=== PATIENT | female | born 1965 | race Caucasian/White ===

== ENCOUNTER → 2016-06-13 | Outpatient (CLI) | payer MEDICARE, OTHER ==
[2016-06-13 13:12] LABS: ALT 37 U/L (9-52); AST 34 U/L (14-36); Alkaline Phosphatase 69 U/L (38-126); Anion Gap 11 mmol/L; Blood Urea Nitrogen 20 mg/dL (7-17); Calcium 9.4 mg/dL (8.4-10.2); Carbon Dioxide 25 mmol/L (22-30); Chloride 106 mmol/L (98-107); Cholesterol 166 mg/dL (<200); Glucose 93 mg/dL (74-99); HDL Cholesterol 58 mg/dL (40-60); Non-African American GFR(MDRD) 56 (>60 ml/min/1.73 sqM); Potassium 3.9 mmol/L (3.5-5.1); Sodium 142 mmol/L (137-145); Total Bilirubin 0.8 mg/dL (0.2-1.3); Total Protein 7.5 g/dL (6.3-8.2); Triglycerides 114 mg/dL (<150)
== END | disposition home or self-care (01) ==
LOC: LABWHC1 11:53
PROVIDERS: ATTEND Internal Medicine Endocrinology, Diabetes & Metabolism
DX: E10.65 Type 1 diabetes mellitus with hyperglycemia (principal); E03.9 Hypothyroidism, unspecified
CPT/HCPCS: 36415; 80053; 80061; 82043; 84443

== ENCOUNTER → 2016-10-01 | Outpatient (CLI) | payer MEDICARE, OTHER ==
[2016-10-01 15:51] LABS: Cholesterol 168 mg/dL (<200); HDL Cholesterol 46 mg/dL (40-60); Triglycerides 261 mg/dL (<150)
[2016-10-06 15:25] LABS: IgG Synthesis Rate 1.22 mg/day (0.00 - 3.00); Immunoglobulin G 920 mg/dL (700 - 1600)
== END | disposition home or self-care (01) ==
LOC: LABWHC1 15:07
PROVIDERS: ATTEND Physician Assistant
DX: I63.9 Cerebral infarction, unspecified (principal); R90.82 White matter disease, unspecified
CPT/HCPCS: 36415; 80061; 82040; 82042; 82784; 83916

== ENCOUNTER → 2017-12-08 | Outpatient (CLI) | payer MEDICARE, OTHER ==
--- NOTE | 2017-12-08 14:20 | MR ---
EXAMINATION TYPE: MR brain wo/w con DATE OF EXAM: 12/08/2017 COMPARISON: Prior MRI brain February 11, 2016. HISTORY: Altered mental status per order. Dizziness and shaking with possible MS per patient. TECHNIQUE: Multiplanar, multisequence images of the brain and brainstem is performed without and with IV contras t, utilizing 7 mL intravenous Gadavist . FINDINGS: Diffusion weighted images demonstrate no evidence of a recent infarct or other diffusion ab normality. There is no worrisome extra-axial fluid collection. The ventricular system and cisternal spaces are normal in size and appearance. The brain volume is age appropriate. There are some scatt ered foci of T2 hyperintensity seen throughout the white matter bilaterally. I estimate closer to 10- 15 scattered lesions in retrospect not significant change in number from prior. For reference 3 right -sided lesions are noted axial image 17 with largest measuring 5 x 4 mm axial image 17 felt stable. T here is a C shaped suspicious stable subcortical right occipital lesion axial image 19 redemonstrated . Some additional scattered subcortical lesions are present. Midline structures demonstrate normal morphology. The craniocervical junction appears within normal limits. Post contrast images demonstrate no abnormal enhancement. The dural venous sinuses appear pa tent. The visualized sinuses are clear and the globes are intact. There is a thin-walled rim-enhancin g 5 mm cyst right masseter muscle level axial image 7 of uncertain etiology or significance. No worri some new fluid signal mastoid air cells is seen. IMPRESSION: Mild to borderline moderate nonspecific white matter changes redemonstrated are likely on basis of known multiple sclerosis. No new or enhancing lesions are clearly evident. No suspicious ne w finding within brain seen to account for patient's symptoms.
== END | disposition home or self-care (01) ==
LOC: RADMRIMAIN 13:08
PROVIDERS: ATTEND Family Medicine
DX: G35 Multiple sclerosis (principal)
CPT/HCPCS: 70553; A9581

== ENCOUNTER → 2017-12-30 | Outpatient (CLI) | payer MEDICARE, OTHER ==
[2017-12-30 14:13] LABS: HCT 40.1 % (34.0-46.0); HGB 12.7 gm/dL (11.4-16.0); MCH 30.2 pg (25.0-35.0); MCHC 31.8 g/dL (31.0-37.0); MCV 94.9 fL (80.0-100.0); Mean Platelet Volume 6.2; Platelet Count 354 k/uL (150-450); RBC 4.22 m/uL (3.80-5.40); RDW 12.1 % (11.5-15.5); WBC 7.7 k/uL (3.8-10.6)
[2017-12-30 14:43] LABS: Potassium 3.8 mmol/L (3.5-5.1)
== END | disposition home or self-care (01) ==
LOC: LABPAT 13:15
PROVIDERS: ATTEND Surgery Plastic and Reconstructive Surgery
DX: Z01.818 Encounter for other preprocedural examination (principal); Z01.812 Encounter for preprocedural laboratory examination
CPT/HCPCS: 82565; 83735; 84132; 84520; 85027; 93005

== ENCOUNTER 2018-01-07 10:54 | Inpatient (IN) | payer MEDICARE, OTHER ==
[2017-12-30 09:23] VITALS: BMI 26.5
--- NOTE | 2018-01-07 07:37 | P.GSHP ---
History of Present Illness H&P Date: 01/07/18 CHIEF COMPLAINT: Paraesophageal hiatal hernia with gastroesophageal reflux disease. HISTORY OF PRESENT ILLNESS: The patient is a 52-year-old female who presents with paraesophageal hiatal hernia. She has completed an esophageal manometry including upper endoscopy workup. Now she presents for surgical intervention. PAST MEDICAL HISTORY: Please see list. PAST SURGICAL HISTORY: Please see list. MEDICATIONS: Please see list. ALLERGIES: Please see list. SOCIAL HISTORY: No illicit drug use FAMILY HISTORY: No reports of Crohn disease or ulcerative colitis. REVIEW OF ORGAN SYSTEMS: CONSTITUTIONAL: No reports of fevers or chills. GI: Denies any blood in stools or constipation. PHYSICAL EXAM: VITAL SIGNS: Stable GENERAL: Well-developed pleasant and in no acute distress. HEENT: No scleral icterus. Extraocular movements grossly intact. Moist buccal mucosa. NECK: Supple without lymphadenopathy. CHEST: Unlabored respirations. Equal bilateral excursions. CARDIOVASCULAR: Regular rate and rhythm. Distal 2+ pulses. ABDOMEN: Soft, nondistended. No peritoneal signs. MUSCULOSKELETAL: No clubbing, cyanosis, or edema. SKIN: Well-perfused. Good skin turgor. MANOMETRY: Shows no evidence of achalasia or scleroderma. ASSESSMENT: 1. Diaphragmatic paraesophageal hiatal hernia with severe gastroesophageal reflux disease. PLAN: 1. Recommend proceeding with a robotic paraesophageal hiatal hernia with possible mesh. 2. Benefits and risks of surgical intervention was discussed including possibility of open technique. 3. Inpatient hospitalization recommended of 2 nights 4. DVT prophylaxis. 5. Antibiotic prophylaxis. Past Medical History Past Medical History: CVA/TIA, Diabetes Mellitus, Eye Disorder, Fibromyalgia, GERD/Reflux, Hyperlipidemia, Hypertension, Osteoarthritis (OA), Thyroid Disorder Additional Past Medical History / Comment(s): hx Pancreatitis, TIA-slow speach and "processing things", insulin pump, hiatal hernia, constipation, "macular edema" History of Any Multi-Drug Resistant Organisms: None Reported Past Surgical History: Appendectomy, Bariatric Surgery, Hysterectomy Additional Past Surgical History / Comment(s): gastric sleeve, Carpal tunnel bilateral, right oophorectomy, mult laparoscopy, pannicuilectomy, Past Anesthesia/Blood Transfusion Reactions: Motion Sickness Smoking Status: Current some day smoker - Past Family History Father Family Medical History: Diabetes Mellitus Mother Family Medical History: No Reported History Medications and Allergies Home Medications Medication Instructions Recorded Confirmed Type Calcium/Magnesium/Zinc 1 tab PO DAILY 08/26/13 12/30/17 History [Ucvunvy-Ebruuvjdb-Rokk Tablet] DULoxetine HCL [Cymbalta] 60 mg PO BID 08/26/13 12/30/17 History Ibuprofen [Motrin] 800 mg PO TID PRN 08/26/13 12/30/17 History Insulin Aspart [NovoLOG 0 unit SQ-PUMP CONTINUOUS 08/26/13 12/30/17 History (formulary)] Simvastatin [Zocor] 20 mg PO HS 08/26/13 12/30/17 History buPROPion XL [Wellbutrin XL] 300 mg PO BID 08/26/13 12/30/17 History Cholecalciferol [Vitamin D3] 5,000 unit PO DAILY 11/30/13 12/30/17 History Hydrochlorothiazide [Hydrodiuril] 12.5 mg PO DAILY 10/05/15 12/30/17 History oxyCODONE-APAP 10-325MG [Percocet 1 tab PO QID PRN 10/05/15 12/30/17 History 10-325 mg] Iron(Dose Unknown) 1 tab PO DAILY 12/30/17 12/30/17 History Levothyroxine Sodium [Synthroid] 50 mcg PO DAILY 12/30/17 12/30/17 History Lutein 40 mg PO DAILY 12/30/17 12/30/17 History Miralax(Dose Unknown) 2 tbsp PO DAILY 12/30/17 12/30/17 History Allergies Allergy/AdvReac Type Severity Reaction Status Date / Time latex Allergy Rash/Hives Verified 12/30/17 08:59 vitamins Allergy Rash/Hives Uncoded 12/30/17 08:59
[~2018-01-07 10:54] MED LIST: DEXAMETHASONE SOD PHOSPHATE 10 MG/ML 1 ML VIAL IV ONE; ENOXAPARIN 40 MG/0.4 ML SYRINGE SQ STA; HEPARIN SODIUM,PORCINE 5,000 UNIT/ML 1 ML VIAL SQ ONE; LACTATED RINGERS 1,000 ML IV SCH; LIDOCAINE 1% 20 ML VIAL (10MG/ML) FOR IV START INTRADERMA PRN; MIDAZOLAM 2 MG/2 ML VIAL IV PRN; ONDANSETRON 4 MG/2 ML VIAL IVP ONE; PANTOPRAZOLE 40 MG/10 ML VIAL IV STA; ceFAZolin IN SWFI 2 GM/20 ML SYRINGE IVP ONE; fentaNYL (PF) 50 MCG/ML 2 ML AMP IV PRN
[2018-01-07 11:51] LABS: Glucose,Whole Blood 197 mg/dL (75-99)
[2018-01-07] MEDS ORDERED: SCOPOLAMINE 1.5MG/72HR PATCH TRANSDERM ONE (12:09)
[2018-01-07] MEDS ORDERED: PROPOFOL 10 MG/ML 20 ML VIAL IV ONE (12:57)
[2018-01-07] MEDS ORDERED: LIDOCAINE 1% INJ 10MG/ML (20 ML MDV) ONE (12:57)
[2018-01-07] MEDS ORDERED: ePHEDrine SULFATE/0.9% NACL/PF 50 MG/5 ML SYRINGE IV ONE (12:57)
[2018-01-07] MEDS ORDERED: GLYCOPYRROLATE 0.2 MG/ML 2 ML VIAL ONE (12:57)
[2018-01-07] MEDS ORDERED: MIDAZOLAM 2 MG/2 ML VIAL ONE (12:57)
[2018-01-07] MEDS ORDERED: ROCURONIUM BROMIDE 10 MG/ML 10 ML VIAL IV ONE (12:57)
[2018-01-07] MEDS ORDERED: KETOROLAC 30 MG/ML 1 ML VIAL ONE (12:57)
[2018-01-07] MEDS ORDERED: fentaNYL (PF) 50 MCG/ML 2 ML AMP ONE (12:57)
[2018-01-07] MEDS ORDERED: HYDROmorphone (PF) 1 MG/ML ONE (12:57)
[2018-01-07] MEDS ORDERED: NEOSTIGMINE 1 MG/ML 10 ML VIAL ONE (12:57)
[2018-01-07] MEDS ORDERED: BUPIVACAIN-EPI 0.25%-1:200,000 30 ML VIAL SQ ONE (13:15)
[2018-01-07] MEDS ORDERED: LACTATED RINGERS 1,000 ML IV ONE (14:07)
[2018-01-07] MEDS ORDERED: NALOXONE 0.4 MG/ML 1 ML VIAL IV PRN (15:08)
[2018-01-07] MEDS ORDERED: HYDROmorphone 1 MG/ML 1 ML SYRINGE IVP ONE ×2 (15:15→15:29)
--- NOTE | 2018-01-07 15:27 | P.OP ---
Date of Procedure: 01/07/18 Description of Procedure: DESCRIPTION OF PROCEDURE(S): SURGEON: ROB MELO MD PREOPERATIVE DIAGNOSES: 1. Gastroesophageal reflux disease. 2. Paraesophageal hiatal hernia, midline. 3. Diabetes type 2, insulin-dependent, poorly controlled 4. Hypothyroidism 5. Epigastric abdominal pain. 6. History of sleeve gastrectomy. 7. Depressive disorder 8. Fibromyalgia 9. Hyperlipidemia 10. Chronic constipation POSTOPERATIVE DIAGNOSES: 1. Gastroesophageal reflux disease. 2. Paraesophageal hiatal hernia, midline. 3. Diabetes type 2, insulin-dependent, poorly controlled 4. Hypothyroidism 5. Epigastric abdominal pain. 6. History of sleeve gastrectomy. 7. Depressive disorder 8. Fibromyalgia 9. Hyperlipidemia 10. Chronic constipation 11. Complication of sleeve gastrectomy with moderate scarring causing intermittent mechanical obstruction OPERATION: 1. Robotic-assisted da Jasmine Xi laparoscopic reduction and repair of incarcerated paraesophageal hiatal hernia, 3 x 4 cm, with [place] Biopatch A 8 x 8 cm. 2. Robotic-assisted da Jasmine Xi laparoscopic lysis of adhesions over 30 minutes 3. Intraoperative esophagogastroduodenoscopy ANESTHESIA: General with local anesthetic. ESTIMATED BLOOD LOSS: 5 mL Pathology: None COMPLICATIONS: None. FINDINGS: 1. Severe adhesions along the proximal two thirds of the stomach omentum to serosa causing distortion of sleeve gastrectomy and mechanical obstruction 2. Moderate redundant splenic flexure by taking sleeve gastrectomy 3. Retained gastric cardia from previously gastrectomy 4. 4 cm paraesophageal incarcerated diaphragmatic hiatal hernia 5. [place] Biopatch A onlay mesh placed. INDICATIONS: The patient is a 52-year-old female who presents with epigastric abdominal pain, history of sleeve gastrectomy and gastroesophageal reflux with a symptomatic diaphragmatic hiatal hernia. Preoperative workup including upper endoscopy demonstrated and manometry were completed. Given the severity of her symptoms, particularly of her symptomatic diaphragmatic hiatal hernia, she had elected for surgical intervention. Benefits and risks including bleeding, infection, recurrence, dysphagia, injury to the lung, need for further surgery was described at length. Informed consent was obtained. DESCRIPTION: The patient was brought into the operating room and placed in supine position. Preoperatively he had received heparin subcutaneously for DVT prophylaxis. After general induction, the abdomen was prepped and draped in standard sterile fashion. The patient had previously voided prior to coming to the operating room. [place] draping was placed along the abdomen. A timeout protocol was confirmed with the surgical team, for which the patient's name, procedure to be performed including DVT prophylaxis with bilateral SCDs, and preoperative antibiotics were also confirmed. A robotic da Jasmine Xi system was prepped and primed. At 12 cm from the xiphoid to just below the umbilicus, proposed port sites were marked with indelible marker along the left axillary line, left mid-clavicular line with each ports were marked 10 cm from each other. A 5 mm 0 degrees laparoscopic trocar entry was performed along the left upper quadrant. The abdomen was insufflated to 15 mmHg pressure she tolerated well. Diagnostic laparoscopy demonstrated no injury to bowel, viscera, or mesentery. The liver surface was unremarkable. Moderate scarring along the sleeve gastrectomy was identified causing encroachment on the angularis incisura and a mechanical intermittent obstruction with distortion and impingement on her sleeve gastrectomy. Additionally, the splenic flexure was highly redundant abutting the sleeve gastrectomy along the diaphragm. Next, one 8 mm robotic port was placed along the right upper abdomen. An 8-mm port was were placed along the left lateral abdominal wall. The camera 8-mm port was maintained along the epigastrium via the hernia defect. Another 12 mm port was placed along the left upper abdominal wall after exchanging the 5 mm port. Please note that the ports were placed at least 20 cm away from the target anatomy. Care was taken to check that each robotic arm were safely away from collision with the bed or the patient. At the epigastrium, a median sized [place] liver retractor was placed under direct visualization with the Iron First Responder placed under the right shoulder of the patient. The additional third robotic arm was placed along the left aspect of the patient. The patient was repositioned in reverse Trendelenburg position at 14-degrees after lowering the bed. The robot was docked above the left side of the patient. Using a grasper for arm 3, a grasper for arm 1, including vessel sealer for arm 2, the robotic system was docked and primed as described. Instruments were interchanged by the medical practice assistant. I had sat at the console. Dense scarring was identified of the gastrohepatic ligament onto the undersurface of the liver. The vessel sealer was used to dissect adhesions free towards the hiatus. Extensive lysis of adhesions was also occurred along the anterior surface of the sleeve for the moderate scarring was identified and similarly addressed with vessel sealer. Extensive lysis of adhesions occurred for over 30 minutes. The gastrohepatic ligament was cleaved using a vessel sealer. Next, the phrenoesophageal ligament was mobilized and the distal esophagus was mobilized circumferentially. Care was taken to avoid any injury to the sleeve gastrectomy as moderate scarring was identified involving a retained gastric cardia. Intermittently, upper endoscopy was used to clearly identify the distal esophagus including the gastric cardia and proximal pole of the stomach. The left and right crura was identified. Care was taken to avoid any gastrotomy to the upper pole of the stomach. The measured defect was consistent with 4 cm axial length and 3 cm in width. After dissection, the distal esophagus at least 3 cm was brought into the abdominal cavity. Once the hiatus and crura was dissected, 2-0 VLOC suture was placed as a running suture to re-approximate the diaphragmatic hiatus posteriorly. To buttress the repair, a [place] Biopatch A was prepared along the back table and cut in a abdalla-hole fashion as to reinforce the repair as an underlay. The mesh was placed along the crural repair and tagged using 2-0 Surgidek. I went to the head of the bed to perform intraoperative esophagogastroduodenoscopy. An Olympus gastroscope was passed through posterior oropharynx, where the GE junction was found below the diaphragmatic hiatus. The stomach was entered. The previous distortion of the sleeve gastrectomy was confirmed to be straightened after lysis of adhesions. The duodenum was unremarkable. The stomach had been desufflated. No evidence of leaks were found either of the mucosal defects of the esophagus or stomach. This concluded the endoscopic portion of the case. The robot was undocked from the patient. I re-scrubbed into the case. All instruments and pneumoperitoneum were evacuated from the abdominal cavity. Incisions were reapproximated using 4-0 Monocryl in an interrupted subcuticular fashion. The 12-mm port site fascial defect was less than 8 mm in size. Liquid glue was applied to the skin. Local anesthetic was infiltrated in all wounds for postop analgesia. Multiple intra-abdominal films were obtained. At the end of the procedure, needle, sponge, and instrument count was verified correct by the surgical instruments inspector. The patient had tolerated the procedure well and was taken to the postanesthesia unit in stable condition. Intraoperative films were reviewed with the patient's family who were pleased with the level of care. Console time 66 minutes
[2018-01-07] MEDS ORDERED: MEPERIDINE 50 MG/ML SYRINGE IVP ONE (15:45)
[2018-01-07] MEDS: ALBUTEROL NEBULIZED 2.5 MG/3 ML INHALATION SCH ×2 (16:35→21:00)
[2018-01-07 17:39] LABS: Glucose,Whole Blood 182 mg/dL (75-99)
[2018-01-07] MEDS: HYDROmorphone 1 MG/ML 1 ML SYRINGE IVP PRN (18:09)
[2018-01-07] MEDS: AMPICILLIN-SULBACTAM 3 GM in SODIUM CHLORIDE 0.9% 100 ML IVPB SCH (18:09)
[2018-01-07] MEDS: ONDANSETRON 4 MG/2 ML VIAL IVP SCH (18:10)
[2018-01-07] MEDS: SIMETHICONE 40 MG/0.6 ML DROPS 2,000 MG/30 ML BOTTLE PO SCH (18:10)
[2018-01-07] MEDS: diphenhydrAMINE 50 MG/ML 1 ML VIAL IVP PRN ×2 (18:10→23:10)
[2018-01-07] MEDS: HYOSCYAMINE ORAL DROPS 1.875 MG/15 ML BOTTLE PO SCH (18:11)
[2018-01-07] MEDS: INSULIN ASPART 100 UNIT/ML 1 ML 10 ML VIAL SQ SCH ×2 (18:39→23:58)
[2018-01-07 21:36] LABS: Glucose,Whole Blood 97 mg/dL (75-99)
[2018-01-07] MEDS: HYDROcodone/APAP 15 ML SOLUTION PO PRN (21:46)
[2018-01-08] MEDS: 0.9% NACL WITH KCL 20 MEQ/L 1,000 ML IV SCH ×3 (00:01→07:13)
[2018-01-08] MEDS: HYOSCYAMINE ORAL DROPS 1.875 MG/15 ML BOTTLE PO SCH ×3 (00:02→12:24)
[2018-01-08] MEDS: SIMETHICONE 40 MG/0.6 ML DROPS 2,000 MG/30 ML BOTTLE PO SCH ×3 (00:02→12:25)
[2018-01-08] MEDS: ONDANSETRON 4 MG/2 ML VIAL IVP SCH ×3 (00:02→12:28)
[2018-01-08] MEDS: HYDROmorphone 1 MG/ML 1 ML SYRINGE IVP PRN ×4 (00:03→12:55)
[2018-01-08] MEDS: AMPICILLIN-SULBACTAM 3 GM in SODIUM CHLORIDE 0.9% 100 ML IVPB SCH (01:02)
[2018-01-08 02:08] LABS: Glucose,Whole Blood 43 mg/dL (75-99)
[2018-01-08 02:31] LABS: Glucose,Whole Blood 46 mg/dL (75-99)
[2018-01-08 02:37] LABS: Glucose,Whole Blood 93 mg/dL (75-99)
[2018-01-08 07:09] LABS: Basophils % (A) 0 %; Eosinophils # (A) 0.2 k/uL (0-0.7); Eosinophils % (A) 2 %; HCT 34.6 % (34.0-46.0); Lymphocytes # (A) 1.9 k/uL (1.0-4.8); Lymphocytes % (A) 23 %; MCH 30.5 pg (25.0-35.0); MCHC 31.9 g/dL (31.0-37.0); MCV 95.7 fL (80.0-100.0); Mean Platelet Volume 6.7; Monocytes # (A) 0.5 k/uL (0-1.0); Monocytes % (A) 5 %; Neutrophils # (A) 5.6 k/uL (1.3-7.7); Neutrophils % (A) 68 %; Platelet Count 314 k/uL (150-450); RBC 3.62 m/uL (3.80-5.40); RDW 12.1 % (11.5-15.5); WBC 8.3 k/uL (3.8-10.6)
[2018-01-08 07:28] LABS: Calcium 8.3 mg/dL (8.4-10.2); Magnesium 1.9 mg/dL (1.6-2.3); Phosphorus 3.5 mg/dL (2.5-4.5); Potassium 3.5 mmol/L (3.5-5.1)
[2018-01-08 07:52] LABS: Glucose,Whole Blood 91 mg/dL (75-99)
[2018-01-08] MEDS: diphenhydrAMINE 50 MG/ML 1 ML VIAL IVP PRN (07:52)
[2018-01-08] MEDS: ALBUTEROL NEBULIZED 2.5 MG/3 ML INHALATION SCH ×2 (07:58→11:26)
[2018-01-08] MEDS ORDERED: 0.9% NACL WITH KCL 20 MEQ/L 1,000 ML IV SCH (08:00)
[2018-01-08] MEDS: INSULIN ASPART 100 UNIT/ML 1 ML 10 ML VIAL SQ SCH (08:49)
--- NOTE | 2018-01-08 08:49 | FL ---
EXAMINATION TYPE: FL UGI DATE OF EXAM: 01/08/2018 LIMITED UGI-ESOPHAGRAM: CLINICAL HISTORY: Hiatal hernia status post Der fundoplication surgery yesterday per patient. His tory of gastric sleeve surgery 2014 for morbid obesity. TECHNIQUE: Limited UGI is performed utilizing 20 oz of Isovue. A total of 99 seconds of fluoroscopic time was utilized during procedure. 24 spot images are saved. FINDINGS: The patient swallowed contrast without difficulty or delay. There are some abnormal second adelaida and tertiary contractions of the distal esophagus with some pooling. There is mild delay in flow of contrast along the diaphragmatic hiatus into the gastric sleeve, there is no evidence of contrast extravasation to suggest leak. Surgical changes epigastric region from sleeve procedure are noted. Th ere is slightly unusual twisting course of the proximal portion of sleeve not causing significant obs truction. No persistent hiatal hernia is seen. Patient remains asymptomatic without increased symptom s of nausea or vomiting. Free air below diaphragm is presumed postsurgical seen best under right estevan diaphragm. IMPRESSION: No evidence of leak or significant obstruction status post Dre fundoplication surgery earlier yesterday. No residual hiatal hernia noted.
[2018-01-08] MEDS ORDERED: ENOXAPARIN 40 MG/0.4 ML SYRINGE SQ SCH (09:00)
[2018-01-08] MEDS ORDERED: PANTOPRAZOLE 40 MG/10 ML VIAL IV SCH (09:00)
[2018-01-08] MEDS: HYDROcodone/APAP 15 ML SOLUTION PO PRN (09:30)
--- NOTE | 2018-01-08 09:56 | P.PN ---
Subjective Progress Note Date: 01/08/18 CHIEF COMPLAINT: Paraesophageal hiatal hernia with gastroesophageal reflux disease. HISTORY OF PRESENT ILLNESS: The patient is a 52-year-old female who presents with paraesophageal hiatal hernia. She is s/p hiatal hernia repair. She denies any difficulty swallowing. She reports poor sleep due to trouble with urinating. She was able to urinate this morning. PHYSICAL EXAM: VITAL SIGNS: Stable GENERAL: Well-developed pleasant and in no acute distress. HEENT: No scleral icterus. Extraocular movements grossly intact. Moist buccal mucosa. NECK: Supple without lymphadenopathy. CHEST: Unlabored respirations. Equal bilateral excursions. CARDIOVASCULAR: Regular rate and rhythm. Distal 2+ pulses. ABDOMEN: Soft, nondistended. No peritoneal signs. MUSCULOSKELETAL: No clubbing, cyanosis, or edema. SKIN: Well-perfused. Good skin turgor. STUDIES: Esophogram reviewed. ASSESSMENT: 1. Diaphragmatic paraesophageal hiatal hernia with severe gastroesophageal reflux disease. PLAN: 1. Decadron for nausea 2. Patient eager to go home today. 3. Re-evaluate this afternoon with bariatric diet. Objective - Vital Signs Vital signs: Vital Signs Temp 98.6 F 01/08/18 00:13 Pulse 99 01/08/18 08:08 Resp 18 01/08/18 02:45 BP 95/52 01/08/18 02:45 Pulse Ox 96 01/08/18 07:58 Intake & Output 01/07/18 01/08/18 01/08/18 18:59 06:59 18:59 Intake Total 1300 Output Total 10 400 200 Balance 1290 -400 -200 Intake: IV 1300 Output: Urine 400 200 Straight 400 Estimated Blood Loss 10 Other: Voiding Method Toilet - Labs CBC & Chem 7: 01/08/18 06:49 01/08/18 06:49 Labs: Abnormal Lab Results - Last 24 Hours (Table) 01/07/18 01/07/18 01/08/18 Range/Units 11:39 17:37 02:06 RBC (3.80-5.40) m/uL Hgb (11.4-16.0) gm/dL Chloride (98-107) mmol/L BUN (7-17) mg/dL POC Glucose (mg/dL) 197 H 182 H 43 L (75-99) mg/dL Calcium (8.4-10.2) mg/dL 01/08/18 01/08/18 01/08/18 Range/Units 02:08 06:49 06:49 RBC 3.62 L (3.80-5.40) m/uL Hgb 11.0 L (11.4-16.0) gm/dL Chloride 109 H (98-107) mmol/L BUN 20 H (7-17) mg/dL POC Glucose (mg/dL) 46 L (75-99) mg/dL Calcium 8.3 L (8.4-10.2) mg/dL Assessment and Plan (1) Paraesophageal hernia with obstruction but no gangrene Current Visit: Yes Status: Acute Code(s): K44.0 - DIAPHRAGMATIC HERNIA WITH OBSTRUCTION, WITHOUT GANGRENE SNOMED Code(s): 10444538 (2) History of sleeve gastrectomy Current Visit: Yes Status: Acute Code(s): Z90.3 - ACQUIRED ABSENCE OF STOMACH [PART OF] SNOMED Code(s): 679044631 (3) Depression Current Visit: Yes Status: Acute Code(s): F32.9 - MAJOR DEPRESSIVE DISORDER , SINGLE EPISODE, UNSPECIFIED SNOMED Code(s): 35693336 (4) Fibromyalgia Current Visit: Yes Status: Acute Code(s): M79.7 - FIBROMYALGIA SNOMED Code (s): 730271134
[2018-01-08] MEDS ORDERED: DEXAMETHASONE SOD PHOSPHATE 10 MG/ML 1 ML VIAL IV ONE (10:00)
[2018-01-08] MEDS ORDERED: INSULIN PUMP BASAL RATES 1 EACH MISC MISCELLANE PRN (10:05)
[2018-01-08] MEDS ORDERED: INSULIN PUMP ACTIVE INSULIN 1 EACH MISC MISCELLANE PRN (10:05)
[2018-01-08] MEDS ORDERED: INSULIN ASPART 100 UNIT/ML 1 ML 10 ML VIAL SQ PRN (10:05)
[2018-01-08] MEDS ORDERED: INSULIN PUMP TARGET GLUCOSE 1 EACH MISC MISCELLANE PRN (10:05)
[2018-01-08] MEDS ORDERED: INSPUCOR MISCELLANE PRN (10:05)
[2018-01-08 12:04] LABS: Hemoglobin A1C 6.3 % (4.0-6.0)
[2018-01-08] MEDS ORDERED: INSULIN PUMP MEAL BOLUS 1 UNIT MISC MISCELLANE SCH (12:30)
[2018-01-08 12:34] LABS: Glucose,Whole Blood 88 mg/dL (75-99)
--- NOTE | 2018-01-08 12:37 | P.DS ---
Providers Date of admission: 01/07/18 10:54 Expected date of discharge: 01/08/18 Attending physician: Dionne Hanley Primary care physician: Siria [facility] Course: 52-year-old female presented with peraesophageal hiatal hernia with gastroesophageal reflux disease. Patient had completed any esophageal manometry including upper endoscopy workup. Now she presents for surgical intervention. On January 07 patient did undergo Robotic-assisted da Jasmine Xi laparoscopic reduction and repair of incarcerated paraesophageal hiatal hernia, 3 x 4 cm, with [place] Biopatch A 8 x 8 cm. . Robotic-assisted da Jasmine Xi laparoscopic lysis of adhesions over 30 minutes Intraoperative esophagogastroduodenoscopy The day of discharge patient had been up ambulating in the hallway stated that the nausea sensation resolved urinating no difficulty in pain medication was effective for pain control Impression discharge diagnosis Present on admission Paraesophageal hiatal hernia midline Type 2 diabetes insulin poorly controlled Gastroesophageal reflux disease Depressive disorder Chronic constipation History of sleeve gastrectomy Complications of sleeve gastrostomy with moderate scarring causing intermittent mechanical obstruction Status post January 07 Robotic-assisted da Jasmine Xi laparoscopic reduction and repair of incarcerated paraesophageal hiatal hernia, 3 x 4 cm, with [place] Biopatch A 8 x 8 cm. Robotic-assisted da Jasmine Xi laparoscopic lysis of adhesions over 30 minutes . Intraoperative esophagogastroduodenoscopy Epigastric abdominal pain Diaphragmatic paraesophageal hiatal hernia with severe gastroesophageal reflux disease. The above impression and plan of care have been discussed and directed by signing physician. Roshni Silva nurse practitioner acting as scribe for signing physician. Plan - Discharge Summary Discharge Rx Participant: No New Discharge Prescriptions: New Bisacodyl [Dulcolax] 5 mg PO DAILY PRN #10 tablet.dr PRN Reason: Constipation Ondansetron Odt [Zofran Odt] 4 mg PO Q8HR PRN #9 tab PRN Reason: Nausea Simethicone 40 mg/0.6 ml Drops [Mylicon Drops] 40 mg PO PCHS PRN #30 ml PRN Reason: Gas Continue buPROPion XL [Wellbutrin XL] 300 mg PO BID DULoxetine HCL [Cymbalta] 60 mg PO BID Insulin Aspart [NovoLOG (formulary)] 0.1 unit SQ-PUMP CONTINUOUS oxyCODONE-APAP 10-325MG [Percocet 10-325 mg] 1 tab PO QID PRN PRN Reason: Pain Hydrochlorothiazide [Hydrodiuril] 12.5 mg PO DAILY Levothyroxine Sodium [Synthroid] 50 mcg PO DAILY Polyethylene Glycol 3350 [Miralax] 17 gm PO DAILY Discontinued Simvastatin [Zocor] 20 mg PO HS Ibuprofen [Motrin] 800 mg PO TID PRN PRN Reason: Pain Calcium/Magnesium/Zinc [Eciyzng-Mudiwtjbf-Ppjs Tablet] 1 tab PO DAILY Cholecalciferol [Vitamin D3] 5,000 unit PO DAILY Lutein 40 mg PO DAILY Ferrous Sulfate [Feosol] 325 mg PO DAILY Discharge Medication List DULoxetine HCL [Cymbalta] 60 mg PO BID 08/26/13 [History] Insulin Aspart [NovoLOG (formulary)] 0.1 unit SQ-PUMP CONTINUOUS 08/26/13 [ History] buPROPion XL [Wellbutrin XL] 300 mg PO BID 08/26/13 [History] Hydrochlorothiazide [Hydrodiuril] 12.5 mg PO DAILY 10/05/15 [History] oxyCODONE-APAP 10-325MG [Percocet 10-325 mg] 1 tab PO QID PRN 10/05/15 [History] Levothyroxine Sodium [Synthroid] 50 mcg PO DAILY 12/30/17 [History] Polyethylene Glycol 3350 [Miralax] 17 gm PO DAILY 01/07/18 [History] Bisacodyl [Dulcolax] 5 mg PO DAILY PRN #10 tablet. 01/08/18 [Rx] Ondansetron Odt [Zofran Odt] 4 mg PO Q8HR PRN #9 tab 01/08/18 [Rx] Simethicone 40 mg/0.6 ml Drops [Mylicon Drops] 40 mg PO PCHS PRN #30 ml [Rx] Follow up Appointment(s)/Referral(s): Dionne Hanley MD [STAFF PHYSICIAN] - 01/11/18 Patient Instructions/Handouts: Hiatal Hernia (DC), Laparoscopic Hiatal Hernia Repair (DC) Activity/Diet/Wound Care/Special Instructions: No lifting over 4 pounds in 4 weeks. May shower. No bathtub soaks. No carbonated beverages or straws. Liquid diet only. TAKE HOME PAIN MEDICATIONS Discharge Disposition: HOME SELF-CARE
[2018-01-08 12:45] VITALS: BP 149/68; PULSE 73; RESP 15; TEMP 97.9
[2018-01-09] MEDS ORDERED: BISACODYL 5 MG TABLET.DR PO PRN (08:00)
== END 2018-01-08 13:45 | disposition home or self-care (01) | DRG 327 ==
LOC: 2ORMAIN 10:54 → 6PED 14:53
PROVIDERS: ADMIT Surgery Plastic and Reconstructive Surgery; ATTEND Surgery Plastic and Reconstructive Surgery
PROC: 0DNU4ZZ Release Omentum, Percutaneous Endoscopic Approach (ICD-10-PCS; 2018-01-07)
PROC: 8E0W4CZ Robotic Assisted Procedure of Trunk Region, Percutaneous Endoscopic Approach (ICD-10-PCS; 2018-01-07)
PROC: 0BUT4JZ Supplement Diaphragm with Synthetic Substitute, Percutaneous Endoscopic Approach (ICD-10-PCS; principal; 2018-01-07 12:30)
DX: K44.0 Diaphragmatic hernia with obstruction, without gangrene (principal); K56.50 Intestinal adhesions [bands], unspecified as to partial versus complete obstruction; K95.89 Other complications of other bariatric procedure; K21.9 Gastro-esophageal reflux disease without esophagitis; M79.7 Fibromyalgia; M19.90 Unspecified osteoarthritis, unspecified site; K59.09 Other constipation; E10.9 Type 1 diabetes mellitus without complications; F32.9 Major depressive disorder, single episode, unspecified; E78.5 Hyperlipidemia, unspecified; F17.200 Nicotine dependence, unspecified, uncomplicated; E03.9 Hypothyroidism, unspecified; Z90.49 Acquired absence of other specified parts of digestive tract; Z86.73 Personal history of transient ischemic attack (TIA), and cerebral infarction without residual deficits; Z90.710 Acquired absence of both cervix and uterus; Z90.721 Acquired absence of ovaries, unilateral; Z98.84 Bariatric surgery status; Z91.040 Latex allergy status
CPT/HCPCS: 74240; 80051; 82310; 82565; 83036; 83735; 84100; 84520; 85025; 94640

== ENCOUNTER → 2018-01-25 | Outpatient (CLI) | payer MEDICARE, OTHER ==
--- NOTE | 2018-01-25 18:31 | XR ---
EXAMINATION TYPE: XR chest 2V DATE OF EXAM: 01/25/2018 COMPARISON: 10/05/2015 HISTORY: Short of breath TECHNIQUE: Frontal and lateral views of the chest are obtained. FINDINGS: Heart and mediastinum are normal. Lungs are clear. Diaphragm is normal. Bony thorax is int act. Pulmonary vascularity is normal. IMPRESSION: Normal chest. There is improved inspiration compared to old exam.
== END | disposition home or self-care (01) ==
LOC: RADXRMAIN 17:42
PROVIDERS: ATTEND Surgery Plastic and Reconstructive Surgery
DX: R06.02 Shortness of breath (principal)
CPT/HCPCS: 71046

== ENCOUNTER → 2018-06-28 | Outpatient (CLI) | payer MEDICARE, OTHER ==
--- NOTE | 2018-06-29 13:59 | MM ---
Reason for exam: screening (asymptomatic). Last mammogram was performed 3 years and 3 months ago. History: Family history of breast cancer in maternal grandmother. Physical Findings: A clinical breast exam by your physician is recommended on an annual basis and results should be correlated with mammographic findings. MG 3D Screening Mammo W/Cad Bilateral CC and MLO view(s) were taken. Prior study comparison: March 27, 2015, mammogram. August 20, 2010, mammogram. The breast tissue is heterogeneously dense. This may lower the sensitivity of mammography. Finding #1: There is a 5 mm mass in the subareolar position of the left breast. Finding #2: There are typically benign calcifications in both breasts. ASSESSMENT: Incomplete: need additional imaging evaluation, BI-RAD 0 RECOMMENDATION: Ultrasound of the left breast. [facility] will attempt to contact patient to return for ultrasound.
== END | disposition home or self-care (01) ==
LOC: RADMAMWWP 12:53
PROVIDERS: ATTEND Family Medicine
DX: Z12.31 Encounter for screening mammogram for malignant neoplasm of breast (principal)
CPT/HCPCS: 77063; 77067

== ENCOUNTER → 2018-07-06 | Outpatient (CLI) | payer MEDICARE, OTHER ==
--- NOTE | 2018-07-06 11:38 | USB ---
Reason for exam: additional evaluation requested from abnormal screening. History: Family history of breast cancer in maternal grandmother. Physical Findings: Nurse Summary: bilateral nodularity, all soft, nodular, movable (nurse ts). US Breast Workup Limited LT Left limited breast ultrasound including focal area of concern, retroareolar and axilla demonstrates a 0.5 x 0.5 x 0.2cm oval, cystic lesion at the posterior nipple, corresponds to mammographic finding. No suspicious finding. These results were verbally communicated with the patient and result sheet given to the patient on 07/06/18. ASSESSMENT: Benign, BI-RAD 2 RECOMMENDATION: Return to routine screening mammogram schedule for both breasts.
== END ==
LOC: RADUSWWP 09:01
PROVIDERS: ATTEND Family Medicine
DX: R92.8 Other abnormal and inconclusive findings on diagnostic imaging of breast (principal)

== ENCOUNTER → 2018-08-26 | Outpatient (CLI) | payer MEDICARE, OTHER ==
[2018-08-26 14:23] LABS: HCT 39.8 % (34.0-46.0); HGB 12.8 gm/dL (11.4-16.0); MCH 30.7 pg (25.0-35.0); MCHC 32.3 g/dL (31.0-37.0); Mean Platelet Volume 6.7; Platelet Count 385 k/uL (150-450); RBC 4.19 m/uL (3.80-5.40); RDW 12.4 % (11.5-15.5); WBC 5.9 k/uL (3.8-10.6)
[2018-08-26 15:05] LABS: INR 0.9 (<1.2); Partial Thromboplastin Time 24.6 sec (22.0-30.0); Prothrombin Time 9.7 sec (9.0-12.0)
[2018-08-26 18:11] LABS: Parathyroid Hormone Intact 58.4 pg/mL (14.0-72.0)
[2018-08-26 18:43] LABS: Albumin 4.2 g/dL (3.80-4.90); Albumin/Globulin Ratio 2.33 (1.60-3.17); Anion Gap 5.2 mmol/L (4.00-12.00); Calcium 9.2 mg/dL (8.7-10.3); Carbon Dioxide 25.8 mmol/L (21.6-31.8); Globulin 1.8 g/dL (1.6-3.3); Iron Saturation 42.65 (12.00-45.00); Magnesium 1.9 mg/dL (1.5-2.4); Phosphorus 4.2 mg/dL (2.4-5.1); Potassium 4.7 mmol/L (3.5-5.5); Total Bilirubin 0.3 mg/dL (0.3-1.2)
[2018-08-26 18:51] LABS: Vitamin D 25 Hydroxy 44.4 ng/mL (30.0-100.0)
[2018-08-26 19:03] LABS: Folate, Serum 15.7 ng/mL
[2018-08-26 22:11] LABS: Hemoglobin A1C 6.2 % (4.0-6.0)
[2018-08-27 12:14] LABS: Zinc, Serum 68 ug/dL (60-130)
== END | disposition home or self-care (01) ==
LOC: LABWHC1 13:22
PROVIDERS: ATTEND Surgery Plastic and Reconstructive Surgery
DX: E21.1 Secondary hyperparathyroidism, not elsewhere classified (principal); E89.1 Postprocedural hypoinsulinemia; D50.8 Other iron deficiency anemias; K90.89 Other intestinal malabsorption; E44.0 Moderate protein-calorie malnutrition; N19 Unspecified kidney failure; K74.1 Hepatic sclerosis; K50.90 Crohn's disease, unspecified, without complications; E66.01 Morbid (severe) obesity due to excess calories
CPT/HCPCS: 36415; 80053; 80061; 82306; 82525; 82607; 82728; 82746; 83036; 83540; 83550; 83735; 83970; 84100; 84134; 84255; 84425; 84443; 84590; 84630; 85027; 85610; 85730

== ENCOUNTER 2018-10-01 13:54 | Day surgery (SDC) | payer MEDICARE, OTHER ==
--- NOTE | 2018-09-30 23:15 | P.GSHP ---
History of Present Illness H&P Date: 10/01/18 CHIEF COMPLAINT: History of intra-abdominal adhesions HISTORY OF PRESENT ILLNESS: The patient is a 53-year-old female who presents with history of intra-abdominal adhesions from multiple prior surgeries including increasing abdominal pain. She now presents for diagnostic laparoscopy including lysis of adhesions. PAST MEDICAL HISTORY: Please see list. PAST SURGICAL HISTORY: Please see list. MEDICATIONS: Please see list. ALLERGIES: Please see list. SOCIAL HISTORY: No illicit drug use FAMILY HISTORY: No reports of Crohn disease or ulcerative colitis. REVIEW OF ORGAN SYSTEMS: CONSTITUTIONAL: No reports of fevers or chills. GI: Denies any blood in stools or constipation. PHYSICAL EXAM: VITAL SIGNS: Stable GENERAL: Well-developed pleasant and in no acute distress. HEENT: No scleral icterus. Extraocular movements grossly intact. Moist buccal mucosa. NECK: Supple without lymphadenopathy. CHEST: Unlabored respirations. Equal bilateral excursions. CARDIOVASCULAR: Regular rate and rhythm. Distal 2+ pulses. ABDOMEN: Soft, diffuse abdominal tenderness. No peritonitis. MUSCULOSKELETAL: No clubbing, cyanosis, or edema. ASSESSMENT: 1. Diffuse abdominal pain. 2. History of multiple abdominal surgeries. 3. Intra-abdominal adhesions. PLAN: 1. Robotic lysis of adhesions were described in detail including risk of injury to the intestine, need for further surgery, and open technique. 2. DVT prophylaxis. 3. Antibiotic prophylaxis. Past Medical History Past Medical History: CVA/TIA, Diabetes Mellitus, Eye Disorder, Fibromyalgia, GERD/Reflux, Hyperlipidemia, Hypertension, Osteoarthritis (OA), Thyroid Disorder Additional Past Medical History / Comment(s): CURRENT: ABD PAIN AND NAUSEA. hx Pancreatitis, TIA-slow speach and "processing things", insulin pump, hiatal hernia, constipation, "macular edema" History of Any Multi-Drug Resistant Organisms: None Reported Past Surgical History: Appendectomy, Bariatric Surgery, Hysterectomy Additional Past Surgical History / Comment(s): ESTEFANY FUNDOPLASTY IN JANUARY 2018. gastric sleeve, Carpal tunnel bilateral, right oophorectomy, mult laparoscopy, pannicuilectomy, Past Anesthesia/Blood Transfusion Reactions: Motion Sickness Past Psychological History: Depression Smoking Status: Current some day smoker Past Alcohol Use History: Occasional Additional Past Alcohol Use History / Comment(s): quit smoking 03/09/17- (still occ has a cigarette), smoked for 20 yrs, Past Drug Use History: None Reported - Past Family History Father Family Medical History: Diabetes Mellitus Mother Family Medical History: No Reported History Medications and Allergies Home Medications Medication Instructions Recorded Confirmed Type DULoxetine HCL [Cymbalta] 60 mg PO BID 08/26/13 09/30/18 History INSULIN ASPART (NovoLOG) [NovoLOG 0.1 unit SQ-PUMP CONTINUOUS 08/26/13 09/30/18 History (formulary)] buPROPion XL [Wellbutrin XL] 300 mg PO BID 08/26/13 09/30/18 History Hydrochlorothiazide [Hydrodiuril] 12.5 mg PO QAM 10/05/15 09/30/18 History oxyCODONE-APAP 10-325MG [Percocet 1 tab PO QID PRN 10/05/15 09/30/18 History 10-325 mg] Levothyroxine Sodium [Synthroid] 50 mcg PO QAM 12/30/17 09/30/18 History Polyethylene Glycol 3350 [Miralax] 17 gm PO DAILY 01/07/18 09/30/18 History Aspirin [Adult Low Dose Aspirin EC] 81 mg PO DAILY 09/30/18 09/30/18 History Cider Vinegar [Apple Cider Vinegar] 1 tab PO DAILY 09/30/18 09/30/18 History Ibuprofen 200 - 400 mg PO Q6H PRN 09/30/18 09/30/18 History Allergies Allergy/AdvReac Type Severity Reaction Status Date / Time latex Allergy Rash/Hives Verified 09/30/18 08:27 vitamins Allergy Rash/Hives Uncoded 09/30/18 08:27
[~2018-10-01 13:54] MED LIST changes: -ENOXAPARIN 40 MG/0.4 ML SYRINGE SQ STA; -LACTATED RINGERS 1,000 ML IV SCH; -PANTOPRAZOLE 40 MG/10 ML VIAL IV STA; +Pre Op ABX Message 1 EACH MISC MISCELLANE ONE
[2018-10-01] MEDS: LACTATED RINGERS 1,000 ML IV SCH ×2 (14:51→23:02)
[2018-10-01 15:01] LABS: Glucose,Whole Blood 88 mg/dL (75-99)
[2018-10-01] MEDS ORDERED: LIDOCAINE 1% INJ 10MG/ML (20 ML MDV) ONE (18:15)
[2018-10-01] MEDS ORDERED: KETOROLAC 30 MG/ML 1 ML VIAL ONE (18:15)
[2018-10-01] MEDS ORDERED: HYDROmorphone (PF) 1 MG/ML ONE (18:15)
[2018-10-01] MEDS ORDERED: SUCCINYLCHOLINE CHLORIDE 100 MG/5 ML SYR IV ONE (18:15)
[2018-10-01] MEDS ORDERED: ROCURONIUM BROMIDE 10 MG/ML 10 ML VIAL IV ONE (18:15)
[2018-10-01] MEDS ORDERED: GLYCOPYRROLATE 0.2 MG/ML 2 ML VIAL ONE (18:15)
[2018-10-01] MEDS ORDERED: ONDANSETRON 4 MG/2 ML VIAL ONE (18:15)
[2018-10-01] MEDS ORDERED: PROPOFOL 10 MG/ML 20 ML VIAL IV ONE (18:15)
[2018-10-01] MEDS ORDERED: fentaNYL (PF) 50 MCG/ML 2 ML AMP ONE (18:15)
[2018-10-01] MEDS ORDERED: NEOSTIGMINE 1 MG/ML 10 ML VIAL ONE (18:15)
[2018-10-01] MEDS ORDERED: MIDAZOLAM 2 MG/2 ML VIAL ONE (18:15)
[2018-10-01] MEDS ORDERED: BUPIVACAINE-EPI 0.5%-1:200,000 10 ML VIAL SQ ONE ×2 (18:35→18:42)
[2018-10-01] MEDS ORDERED: LACTATED RINGERS 1,000 ML IV ONE (19:17)
[2018-10-01 20:29] LABS: Glucose,Whole Blood 198 mg/dL (75-99)
[2018-10-01] MEDS ORDERED: NALOXONE 0.4 MG/ML 1 ML VIAL IV PRN (20:35)
[2018-10-01] MEDS ORDERED: METOCLOPRAMIDE 5 MG/ML 2 ML VIAL IVP PRN (20:35)
[2018-10-01] MEDS ORDERED: HYDROmorphone 1 MG/ML 1 ML SYRINGE IVP ONE ×3 (20:36→20:46)
--- NOTE | 2018-10-01 20:41 | P.OP ---
Date of Procedure: 10/01/18 Description of Procedure: SURGEON: DIONNE HANLEY MD PREOPERATIVE DIAGNOSES: 1. Peritoneal adhesions 2. Generalized abdominal pain 3. History of multiple abdominal surgeries 4. Hypothyroidism 5. Epigastric abdominal pain. 6. History of sleeve gastrectomy. 7. Depressive disorder 8. Fibromyalgia 9. Hyperlipidemia 10. Chronic constipation 11. Diabetes type 2, insulin-dependent with diabetic retinopathy POSTOPERATIVE DIAGNOSES: 1. Peritoneal adhesions, severe 2. Generalized abdominal pain 3. History of multiple abdominal surgeries 4. Hypothyroidism 5. Epigastric abdominal pain. 6. History of sleeve gastrectomy. 7. Depressive disorder 8. Fibromyalgia 9. Hyperlipidemia 10. Chronic constipation 11. Diabetes type 2, insulin-dependent with diabetic retinopathy 12. Severe peritoneal adhesions greater omentum to the abdominal wall OPERATION: 1. Robotic-assisted da Jasmine Xi laparoscopic extensive lysis of adhesions over 1 hour Anesthesia: GETA, local Estimated Blood Loss (ml): 5 Pathology: none sent Condition: critical Disposition: observation Operative Findings: 1. Omental and large bowel adhesions left lateral to left lower abdominal wall consistent location of pain. 2. Highly redundant sigmoid colon with high risk for intermittent volvulus 3. Intra-loop adhesions involving jejunum 4. Sigmoid colon adherent with incarceration of the left lower abdomen INDICATIONS: The patient is a 53-year-old female who presents with left upper quadrant and lower quadrant abdominal pain. Surgical intervention with di agnostic laparoscopy, lysis of adhesions were described. Robotic assisted laparoscopic approach was described. Benefits and risks of the procedure including but not limited to bleeding, infection, injury to the biliary tree was described. Informed consent was obtained. DESCRIPTION OF PROCEDURE: Patient was brought to the operating room, placed in supine position. After general induction, the abdomen had been prepped and draped in standard sterile fashion. The robotic da Jasmine XI system was primed. After a timeout protocol was performed, the patient had been prepped and draped in standard sterile fashion. A 5 mm 0 degrees laparoscopic trocar entry was performed along the left upper quadrant. Diagnostic laparoscopy demonstrated no injury to bowel viscera or mesentery. Diffuse abdominal adhesions were identified. Next, three 8 mm robotic ports were placed along transverse line, 15-cm distal to the xiphoid process after exchanging the 5-mm port. Please note that the ports were placed at least 10 to 15 cm away from the target anatomy. Instruments including graspers, scissors and vessel sealer were interchanged by the assistant business manager. I had sat at the console. Omental adhesions along the midline and left lower abdominal wall were addressed using vessel sealer. No evidence of incisional hernia was identified. The rest of the abdomen was unremarkable for small bowel pathology. Along the left lateral abdominal wall, complete adhesions of omentum to abdominal wall was found and lysed with scissors and vessel sealer. At the left lower quadrant, sigmoid colon was adherent to left lower abdominal wall and dissected free. Internal hernia involving sigmoid colon and greater omentum at the left lower abdomen was excised for risk for bowel obstruction. Omental and large bowel adhesions left lateral to left lower abdominal wall consistent location of pain was also lysed. Highly redundant sigmoid colon with high risk for intermittent volvulus was found. Intra-loop adhesions involving jejunum mid and distal was found and also lysed. The sigmoid colon was adherent with incarceration at the left lower abdomen. The robot was re-docked from the pelvis to upper abdomen. The small bowel from the cammy limb to distal ileum was inspected. No ventral hernias identified. Adhesions along the epigastrium, left upper quarant and right upper quadrant were lysed using vessel sealer. The terminal ileum and cecum was unremarkable. Extensive lysis of adhesions over 1 hour was performed. No evidence of small bowel obstruction was found. The robot was undocked. All pneumoperitoneum instruments were evacuated from the abdominal cavity. The incisions were reapproximated using 4-0 Monocryl in an interrupted subcuticular fashion. Please note along the trocar sites, local anesthetic was placed as a field block prior to insertion of all instruments. Exofin was applied to the skin. At the end of the procedure needle, sponge, and instrument count had been verified correct by the director medical surgical. The patient was transferred to postanesthesia care unit in stable condition. Plan - Discharge Summary Discharge Rx Participant: No New Discharge Prescriptions: Continue DULoxetine HCL [Cymbalta] 60 mg PO BID INSULIN ASPART (NovoLOG) [NovoLOG (formulary)] 0.1 unit SQ-PUMP CONTINUOUS oxyCODONE-APAP 10-325MG [Percocet 10-325 mg] 1 tab PO QID PRN PRN Reason: Pain Hydrochlorothiazide [Hydrodiuril] 12.5 mg PO QAM Levothyroxine Sodium [Synthroid] 50 mcg PO QAM Polyethylene Glycol 3350 [Miralax] 17 gm PO DAILY Ibuprofen 200 - 400 mg PO Q6H PRN PRN Reason: Pain Cider Vinegar [Apple Cider Vinegar] 1 tab PO DAILY Aspirin [Adult Low Dose Aspirin EC] 81 mg PO DAILY buPROPion HCL [Wellbutrin SR] 300 mg PO BID Discharge Medication List DULoxetine HCL [Cymbalta] 60 mg PO BID 08/26/13 [History] INSULIN ASPART (NovoLOG) [NovoLOG (formulary)] 0.1 unit SQ-PUMP CONTINUOUS 08/26/13 [History] Hydrochlorothiazide [Hydrodiuril] 12.5 mg PO QAM 10/05/15 [History] oxyCODONE-APAP 10-325MG [Percocet 10-325 mg] 1 tab PO QID PRN 10/05/15 [History] Levothyroxine Sodium [Synthroid] 50 mcg PO QAM 12/30/17 [History] Polyethylene Glycol 3350 [Miralax] 17 gm PO DAILY 01/07/18 [History] Aspirin [Adult Low Dose Aspirin EC] 81 mg PO DAILY 09/30/18 [History] Cider Vinegar [Apple Cider Vinegar] 1 tab PO DAILY 09/30/18 [History] Ibuprofen 200 - 400 mg PO Q6H PRN 09/30/18 [History] buPROPion HCL [Wellbutrin SR] 300 mg PO BID 10/02/18 [History] Follow up Appointment(s)/Referral(s): Dionne Hanley MD [STAFF PHYSICIAN] - 10/05/18 (Please call to confirm time) Patient Instructions/Handouts: Lysis of Abdominal Adhesions (DC) Activity/Diet/Wound Care/Special Instructions: May shower. No bathtub soaks to October 11. No lifting over 10 pounds until October 11. Diet as tolerated. Please take home pain medications. Discharge Disposition: HOME SELF-CARE
[2018-10-01] MEDS ORDERED: INSULIN ASPART (NovoLOG) 100 UNIT/ML VIAL SQ SCH (20:45)
[2018-10-01 22:10] VITALS: BMI 27.8
[2018-10-01] MEDS: DULoxetine HCL 60 MG CAPSULE.DR PO SCH (23:04)
[2018-10-01] MEDS: KETOROLAC 30 MG/ML 1 ML VIAL IVP SCH (23:04)
[2018-10-01] MEDS ORDERED: INSPUCOR MISCELLANE PRN (23:52)
[2018-10-01] MEDS ORDERED: INSULIN ASPART (NovoLOG) 100 UNIT/ML VIAL SQ PRN (23:52)
[2018-10-01] MEDS ORDERED: INSULIN PUMP BASAL RATES 1 EACH MISC MISCELLANE PRN (23:52)
[2018-10-02] MEDS: oxyCODONE-APAP 10-325MG 1 EACH TAB PO PRN ×2 (00:21→12:45)
[2018-10-02 02:25] LABS: Glucose,Whole Blood 173 mg/dL (75-99)
[2018-10-02] MEDS: KETOROLAC 30 MG/ML 1 ML VIAL IVP SCH ×2 (04:22→10:17)
[2018-10-02] MEDS: HYDROmorphone 1 MG/ML 1 ML SYRINGE IVP PRN ×2 (05:18→09:24)
[2018-10-02] MEDS ORDERED: LEVOTHYROXINE 50 MCG TAB PO SCH (06:30)
[2018-10-02 07:25] LABS: Glucose,Whole Blood 106 mg/dL (75-99)
[2018-10-02] MEDS ORDERED: INSULIN PUMP MEAL BOLUS 1 UNIT MISC MISCELLANE SCH (07:30)
[2018-10-02] MEDS: DULoxetine HCL 60 MG CAPSULE.DR PO SCH (08:59)
[2018-10-02] MEDS ORDERED: PANTOPRAZOLE 40 MG/10 ML VIAL IV SCH (09:00)
[2018-10-02] MEDS ORDERED: HYDROCHLOROTHIAZIDE 12.5 MG CAP PO SCH (09:00)
[2018-10-02] MEDS ORDERED: POLYETHYLENE GLYCOL 3350 17 GM POWD.PACK PO SCH (09:00)
[2018-10-02 09:23] VITALS: BP 115/62; PULSE 87; RESP 16; TEMP 98
[2018-10-02] MEDS ORDERED: buPROPion SR 150 MG TABLET.ER PO SCH (10:00)
--- NOTE | 2018-10-02 12:16 | P.DS ---
Providers Date of admission: 10/01/18 Expected date of discharge: 10/02/18 Attending physician: Dionne Hanley Consults: 10/01/18 05:47 Consult Physician Routine Consulting Provider: [facility] Consult Reason/Comments: [facility] Do you want consulting provider notified?: Yes Primary care physician: Siria Brar [facility] Course: She is doing well. "I notice the improvement." She is passing flatus. She had bowel movement. "I feel much better." Agreeable with discharge with follow up in 3 days. Patient Condition at Discharge: Stable Plan - Discharge Summary Discharge Rx Participant: Yes New Discharge Prescriptions: No Action DULoxetine HCL [Cymbalta] 60 mg PO BID INSULIN ASPART (NovoLOG) [NovoLOG (formulary)] 0.1 unit SQ-PUMP CONTINUOUS oxyCODONE-APAP 10-325MG [Percocet 10-325 mg] 1 tab PO QID PRN PRN Reason: Pain Hydrochlorothiazide [Hydrodiuril] 12.5 mg PO QAM Levothyroxine Sodium [Synthroid] 50 mcg PO QAM Polyethylene Glycol 3350 [Miralax] 17 gm PO DAILY Ibuprofen 200 - 400 mg PO Q6H PRN PRN Reason: Pain Cider Vinegar [Apple Cider Vinegar] 1 tab PO DAILY Aspirin [Adult Low Dose Aspirin EC] 81 mg PO DAILY buPROPion HCL [Wellbutrin SR] 300 mg PO BID Discharge Medication List DULoxetine HCL [Cymbalta] 60 mg PO BID 08/26/13 [History] INSULIN ASPART (NovoLOG) [NovoLOG (formulary)] 0.1 unit SQ-PUMP CONTINUOUS 08/26/13 [History] Hydrochlorothiazide [Hydrodiuril] 12.5 mg PO QAM 10/05/15 [History] oxyCODONE-APAP 10-325MG [Percocet 10-325 mg] 1 tab PO QID PRN 10/05/15 [History] Levothyroxine Sodium [Synthroid] 50 mcg PO QAM 12/30/17 [History] Polyethylene Glycol 3350 [Miralax] 17 gm PO DAILY 01/07/18 [History] Aspirin [Adult Low Dose Aspirin EC] 81 mg PO DAILY 09/30/18 [History] Cider Vinegar [Apple Cider Vinegar] 1 tab PO DAILY 09/30/18 [History] Ibuprofen 200 - 400 mg PO Q6H PRN 09/30/18 [History] buPROPion HCL [Wellbutrin SR] 300 mg PO BID 10/02/18 [History]
[2018-10-05 07:23] LABS: Glucose,Whole Blood 99 mg/dL (75-99)
== END 2018-10-02 13:45 | disposition home or self-care (01) ==
LOC: OR 13:54 → 4SSUR 20:26 → UNDOADMOB 10-02 10:21 → 4SSUR 10-02 10:21 → OR 10-02 10:23
PROVIDERS: ATTEND Surgery Plastic and Reconstructive Surgery
DX: K66.0 Peritoneal adhesions (postprocedural) (postinfection) (principal); Q43.8 Other specified congenital malformations of intestine; Z98.890 Other specified postprocedural states; R10.13 Epigastric pain; K59.09 Other constipation; I69.328 Other speech and language deficits following cerebral infarction; I69.313 Psychomotor deficit following cerebral infarction; I10 Essential (primary) hypertension; E78.5 Hyperlipidemia, unspecified; E11.311 Type 2 diabetes mellitus with unspecified diabetic retinopathy with macular edema; Z79.4 Long term (current) use of insulin; Z96.41 Presence of insulin pump (external) (internal); M79.7 Fibromyalgia; F17.200 Nicotine dependence, unspecified, uncomplicated; K21.9 Gastro-esophageal reflux disease without esophagitis; E03.9 Hypothyroidism, unspecified; Z98.84 Bariatric surgery status; Z90.710 Acquired absence of both cervix and uterus; F32.9 Major depressive disorder, single episode, unspecified; Z79.82 Long term (current) use of aspirin; Z79.890 Hormone replacement therapy; Z79.899 Other long term (current) drug therapy; Z88.8 Allergy status to other drugs, medicaments and biological substances; Z91.040 Latex allergy status
CPT/HCPCS: 44180; 86900; 86901; 86850; J2250; J1644; J1100; J2710; J2765; S0106; J2405; J2001; J3010; J1885 ×2; J1170 ×2; J0330; J2704; C9113; J0690

== ENCOUNTER 2019-01-22 02:32 | Emergency (ER) | payer MEDICARE, OTHER ==
[2019-01-22] MEDS ORDERED: SODIUM CHLORIDE 0.9% 1,000 ML IV STA (03:20)
[2019-01-22 03:36] LABS: Basophils # (A) 0.1 k/uL (0-0.2); Basophils % (A) 1 %; Eosinophils # (A) 0.4 k/uL (0-0.7); Eosinophils % (A) 3 %; HCT 38.6 % (34.0-46.0); HGB 12.3 gm/dL (11.4-16.0); Lymphocytes # (A) 2.9 k/uL (1.0-4.8); Lymphocytes % (A) 25 %; MCH 30.3 pg (25.0-35.0); MCHC 31.9 g/dL (31.0-37.0); Mean Platelet Volume 6.1; Monocytes # (A) 0.7 k/uL (0-1.0); Monocytes % (A) 6 %; Neutrophils # (A) 7.6 k/uL (1.3-7.7); Neutrophils % (A) 64 %; Platelet Count 388 k/uL (150-450); RBC 4.06 m/uL (3.80-5.40); RDW 12.3 % (11.5-15.5); WBC 11.9 k/uL (3.8-10.6)
[2019-01-22 03:36] LABS: Appearance,Urine Clear (Clear); Bilirubin,Urine Negative (Negative); Blood,Urine Negative (Negative); Color,Urine Yellow; Glucose,Urine (UA) Negative (Negative); Ketones,Urine Negative (Negative); Leukocyte Esterase,Urine Negative (Negative); Nitrite,Urine Negative (Negative); Protein,Urine Negative (Negative); Urobilinogen,Urine <2.0 mg/dL (<2.0)
[2019-01-22 03:54] LABS: Albumin 3.8 g/dL (3.5-5.0); Calcium 8.9 mg/dL (8.4-10.2); Total Bilirubin 0.3 mg/dL (0.2-1.3); Total Protein 6.5 g/dL (6.3-8.2)
--- NOTE | 2019-01-22 04:00 | XR ---
EXAM: XR Abdomen, 2 Views CLINICAL HISTORY: Abdominal pain. TECHNIQUE: Frontal view of the abdomen/pelvis with upright view of the abdomen. COMPARISON: 11/30/2013. FINDINGS: Intraperitoneal space: No free air. Gastrointestinal tract: Nonspecific bowel gas pattern. No dilation. Organs: A 2.1 x 1.8 cm ovoid calcified structure is noted within the left hemipelvis, similar to that noted on the previous study, possibly representing a calcified fibroid. No renal calculi are detected. Bones/joints: Unremarkable. Vasculature: Pelvic phlebolith are noted. Other findings: Mild to moderate quantity of stool is noted. IMPRESSION: Nonspecific bowel gas pattern. No free air.
[2019-01-22 04:30] VITALS: TEMP 97.7
--- NOTE | 2019-01-22 04:51 | ED ---
Abdominal Pain HPI - General Source: EMS Mode of arrival: EMS Limitations: no limitations <Tash Altman - Last Filed: 01/22/19 05:04> <Nighat Santos - Last Filed: 01/22/19 06:42> - General Chief Complaint: Abdominal Pain Stated Complaint: Abdominal Pain Time Seen by Provider: 01/22/19 02:38 - History of Present Illness Initial Comments: 53-year-old female patient presents to the emergency department today for evaluation of abdominal pain. Patient states she has chronic abdominal pain due to multiple adhesions in her abdomen. States that 5 minutes prior to calling EMS she developed increasing pain to the abdomen. States that she does feel better after receiving Toradol from EMS personnel. She denies any nausea or vomiting. Denies any constipation or diarrhea. Denies fever or chills. Patie nt states she has had multiple abdominal surgeries in the past with Dr. Castillo. She denies any chest pain or shortness of breath. States she has been having some dizziness over the last 6 months. Denies any numbness, tingling, or weakness to the extremities. Patient denies any recent rash, back pain, numbness, tingling, dizziness, weakness, hematuria, dysuria, urinary urgency, urinary frequency, headache, visual changes, or any other complaints. (Tash Altman) - Related Data Home Medications Medication Instructions Recorded Confirmed DULoxetine HCL [Cymbalta] 60 mg PO BID 08/26/13 10/01/18 INSULIN ASPART (NovoLOG) [NovoLOG 0.1 unit SQ-PUMP CONTINUOUS 08/26/13 10/01/18 (formulary)] Hydrochlorothiazide [Hydrodiuril] 12.5 mg PO QAM 10/05/15 10/01/18 oxyCODONE-APAP 10-325MG [Percocet 1 tab PO QID PRN 10/05/15 10/01/18 10-325 mg] Levothyroxine Sodium [Synthroid] 50 mcg PO QAM 12/30/17 10/01/18 Polyethylene Glycol 3350 [Miralax] 17 gm PO DAILY 01/07/18 10/01/18 Aspirin [Adult Low Dose Aspirin EC] 81 mg PO DAILY 09/30/18 10/01/18 Cider Vinegar [Apple Cider Vinegar] 1 tab PO DAILY 09/30/18 10/01/18 Ibuprofen 200 - 400 mg PO Q6H PRN 09/30/18 10/01/18 buPROPion HCL [Wellbutrin SR] 300 mg PO BID 10/02/18 10/02/18 Allergies Allergy/AdvReac Type Severity Reaction Status Date / Time latex Allergy Rash/Hives Verified 01/22/19 02:41 vitamins Allergy Rash/Hives Uncoded 01/22/19 02:41 Review of Systems ROS Other: All systems not noted in ROS Statement are negative. <Tash Altman - Last Filed: 01/22/19 05:04> ROS Other: All systems not noted in ROS Statement are negative. <Nighat Santos - Last Filed: 01/22/19 06:42> ROS Statement: Those systems with pertinent positive or pertinent negative responses have been documented in the HPI. Past Medical History Past Medical History: CVA/TIA, Diabetes Mellitus, Eye Disorder, Fibromyalgia, GERD/Reflux, Hyperlipidemia, Hypertension, Thyroid Disorder Additional Past Medical History / Comment(s): CURRENT: ABD PAIN AND NAUSEA. hx Pancreatitis, TIA-slow speach and "processing things", insulin pump, hiatal hernia, constipation, "macular edema". Vertigo , DM tyle 1,. Chronic Back Pain-bulging discs,. Uses walker/cane/furniture to safely ambulate. Osteopenia History of Any Multi-Drug Resistant Organisms: None Reported Past Surgical History: Appendectomy, Bariatric Surgery, Hysterectomy Additional Past Surgical History / Comment(s): ESTEFANY FUNDOPLASTY IN JANUARY 2018. gastric sleeve, Carpal tunnel bilateral, right oophorectomy, mult laparoscopy, pannicuilectomy, removal of scar tissue in abdomen. Past Anesthesia/Blood Transfusion Reactions: Motion Sickness Past Psychological History: Depression Smoking Status: Current some day smoker Past Alcohol Use History: Occasional Past Drug Use History: None Reported - Past Family History Father Family Medical History: Diabetes Mellitus Mother Family Medical History: No Reported History, Diabetes Mellitus <Tash Altman - Last Filed: 01/22/19 05:04> General Exam Limitations: no limitations General appearance: alert, in no apparent distress, other (This is a well- developed, well-nourished adult female patient in no acute distress. Vital signs upon presentation are temperature 98.4F, pulse 91, respirations 18, blood pressure 93/81, pulse ox 96% on room air.) Eye exam: Present: normal appearance, PERRL, EOMI. Absent: scleral icterus, conjunctival injection, periorbital swelling ENT exam: Present: normal exam, normal oropharynx, mucous membranes moist Respiratory exam: Present: normal lung sounds bilaterally. Absent: respiratory distress, wheezes, rales, rhonchi, stridor Cardiovascular Exam: Present: regular rate, normal rhythm, normal heart sounds. Absent: systolic murmur, diastolic murmur, rubs, gallop, clicks GI/Abdominal exam: Present: soft, tenderness (Generalized), normal bowel sounds. Absent: distended, guarding, rebound, rigid Neurological exam: Present: alert, oriented X3, CN II-XII intact Psychiatric exam: Present: normal affect, normal mood Skin exam: Present: warm, dry, intact, normal color. Absent: rash <Tash Altman - Last Filed: 01/22/19 05:04> Course Vital Signs 01/22/19 01/22/19 01/22/19 02:33 04:29 04:59 Temperature 98.4 F 97.7 F Pulse Rate 91 91 89 Respiratory 18 18 16 Rate Blood Pressure 93/81 96/58 89/49 O2 Sat by Pulse 96 95 94 L Oximetry 01/22/19 01/22/19 01/22/19 05:31 06:00 06:39 Temperature Pulse Rate 89 93 Respiratory 16 16 Rate Blood Pressure 88/53 96/50 113/70 O2 Sat by Pulse 99 100 Oximetry Medical Decision Making - Lab Data Result diagrams: 01/22/19 02:45 01/22/19 02:45 - EKG Data -: EKG Interpreted by Ak <Tash Altman - Last Filed: 01/22/19 05:04> - Lab Data Result diagrams: 01/22/19 02:45 01/22/19 02:45 <Nighat Santos - Last Filed: 01/22/19 06:42> - Lab Data Lab Results 01/22/19 01/22/19 01/22/19 Range/Units 02:45 02:45 02:45 WBC 11.9 H (3.8-10.6) k/uL RBC 4.06 (3.80-5.40) m/uL Hgb 12.3 (11.4-16.0) gm/dL Hct 38.6 (34.0-46.0) % MCV 95.0 (80.0-100.0) fL MCH 30.3 (25.0-35.0) pg MCHC 31.9 (31.0-37.0) g/dL RDW 12.3 (11.5-15.5) % Plt Count 388 (150-450) k/uL Neutrophils % 64 % Lymphocytes % 25 % Monocytes % 6 % Eosinophils % 3 % Basophils % 1 % Neutrophils # 7.6 (1.3-7.7) k/uL Lymphocytes # 2.9 (1.0-4.8) k/uL Monocytes # 0.7 (0-1.0) k/uL Eosinophils # 0.4 (0-0.7) k/uL Basophils # 0.1 (0-0.2) k/uL Sodium 139 (137-145) mmol/L Potassium 4.0 (3.5-5.1) mmol/L Chloride 103 (98-107) mmol/L Carbon Dioxide 27 (22-30) mmol/L Anion Gap 9 mmol/L BUN 34 H (7-17) mg/dL Creatinine 1.05 H (0.52-1.04) mg/dL Est GFR (CKD-EPI)AfAm 71 (>60 ml/min/1.73 sqM) Est GFR (CKD-EPI)NonAf 62 (>60 ml/min/1.73 sqM) Glucose 121 H (74-99) mg/dL Plasma Lactic Acid Obed 0.9 (0.7-2.0) mmol/L Calcium 8.9 (8.4-10.2) mg/dL Total Bilirubin 0.3 (0.2-1.3) mg/dL AST 57 H (14-36) U/L ALT 57 H (9-52) U/L Alkaline Phosphatase 48 (38-126) U/L Troponin I (0.000-0.034) ng/mL Total Protein 6.5 (6.3-8.2) g/dL Albumin 3.8 (3.5-5.0) g/dL Amylase 77 (30-110) U/L Lipase 108 (23-300) U/L Urine Color Urine Appearance (Clear) Urine pH (5.0-8.0) Ur Specific Badin (1.001-1.035) Urine Protein (Negative) Urine Glucose (UA) (Negative) Urine Ketones (Negative) Urine Blood (Negative) Urine Nitrite (Negative) Urine Bilirubin (Negative) Urine Urobilinogen (<2.0) mg/dL Ur Leukocyte Esterase (Negative) 01/22/19 01/22/19 Range/Units 02:45 02:49 WBC (3.8-10.6) k/uL RBC (3.80-5.40) m/uL Hgb (11.4-16.0) gm/dL Hct (34.0-46.0) % MCV (80.0-100.0) fL MCH (25.0-35.0) pg MCHC (31.0-37.0) g/dL RDW (11.5-15.5) % Plt Count (150-450) k/uL Neutrophils % % Lymphocytes % % Monocytes % % Eosinophils % % Basophils % % Neutrophils # (1.3-7.7) k/uL Lymphocytes # (1.0-4.8) k/uL Monocytes # (0-1.0) k/uL Eosinophils # (0-0.7) k/uL Basophils # (0-0.2) k/uL Sodium (137-145) mmol/L Potassium (3.5-5.1) mmol/L Chloride (98-107) mmol/L Carbon Dioxide (22-30) mmol/L Anion Gap mmol/L BUN (7-17) mg/dL Creatinine (0.52-1.04) mg/dL Est GFR (CKD-EPI)AfAm (>60 ml/min/1.73 sqM) Est GFR (CKD-EPI)NonAf (>60 ml/min/1.73 sqM) Glucose (74-99) mg/dL Plasma Lactic Acid Obed (0.7-2.0) mmol/L Calcium (8.4-10.2) mg/dL Total Bilirubin (0.2-1.3) mg/dL AST (14-36) U/L ALT (9-52) U/L Alkaline Phosphatase (38-126) U/L Troponin I <0.012 (0.000-0.034) ng/mL Total Protein (6.3-8.2) g/dL Albumin (3.5-5.0) g/dL Amylase (30-110) U/L Lipase (23-300) U/L Urine Color Yellow Urine Appearance Clear (Clear) Urine pH 6.0 (5.0-8.0) Ur Specific Badin 1.010 (1.001-1.035) Urine Protein Negative (Negative) Urine Glucose (UA) Negative (Negative) Urine Ketones Negative (Negative) Urine Blood Negative (Negative) Urine Nitrite Negative (Negative) Urine Bilirubin Negative (Negative) Urine Urobilinogen <2.0 (<2.0) mg/dL Ur Leukocyte Esterase Negative (Negative) - EKG Data EKG Comments: EKG obtained at 07 17 shows normal sinus rhythm with a ventricular rate of 88, OK interval 136, QRS duration 94, QT 378, QTC 457. No evidence of ST elevation or depression. (Tash Altman) Disposition <Tash Altman - Last Filed: 01/22/19 05:04> Is patient prescribed a controlled substance at d/c from ED?: No <Nighat Santos - Last Filed: 01/22/19 06:42> Clinical Impression: Abdominal pain Disposition: HOME SELF-CARE Condition: Stable Referrals: Siria Brar MD [Primary Care Provider] - 1-2 days
[2019-01-22] MEDS ORDERED: SODIUM CHLORIDE 0.9% 1,000 ML IV ONE (05:04)
[2019-01-22 05:18] VITALS: RESP 16
[2019-01-22 06:40] VITALS: BP 113/70; PULSE 93
== END 2019-01-22 07:00 | disposition home or self-care (01) ==
LOC: EC 02:32
DX: R10.9 Unspecified abdominal pain (principal); R42 Dizziness and giddiness; I95.9 Hypotension, unspecified; G89.29 Other chronic pain; E10.9 Type 1 diabetes mellitus without complications; M79.7 Fibromyalgia; I10 Essential (primary) hypertension; E07.9 Disorder of thyroid, unspecified; K59.00 Constipation, unspecified; F32.9 Major depressive disorder, single episode, unspecified; F17.200 Nicotine dependence, unspecified, uncomplicated; Z88.8 Allergy status to other drugs, medicaments and biological substances; Z91.040 Latex allergy status; Z79.4 Long term (current) use of insulin; Z79.82 Long term (current) use of aspirin; Z79.890 Hormone replacement therapy; Z79.899 Other long term (current) drug therapy; Z96.41 Presence of insulin pump (external) (internal); Z87.19 Personal history of other diseases of the digestive system; Z90.49 Acquired absence of other specified parts of digestive tract; Z98.84 Bariatric surgery status; Z98.890 Other specified postprocedural states
CPT/HCPCS: 36415; 74018; 80053; 81003; 82150; 83605; 83690; 84484; 85025; 93005; 96360; 96361; 99285

== ENCOUNTER → 2020-04-26 | Outpatient (CLI) | payer MEDICARE, OTHER ==
--- NOTE | 2020-04-26 11:32 | FL ---
EXAMINATION TYPE: FL barium swallow DATE OF EXAM: 04/26/2020 COMPARISON: None HISTORY: Vomiting x1 year TECHNIQUE: Single contrast technique is performed FINDINGS: Esophagus dilates normal caliber has normal contour to the gastroesophageal junction. Gastr oesophageal junction opens to normal caliber. Reflux to the level of the clavicles was evident during the examination. There is incomplete stripping the esophageal bolus the horizontal drinking position . IMPRESSION: 1. Gastroesophageal reflux level of the clavicles. 2. Incomplete stripping the esophageal bolus the horizontal drinking position.
--- NOTE | 2020-04-26 12:42 | CT ---
EXAMINATION TYPE: CT abdomen pelvis w con DATE OF EXAM: 04/26/2020 COMPARISON: 09/12/2013 HISTORY: 55-year-old female generalized pain, dysphagia TECHNIQUE: Contiguous axial scanning of the abdomen and pelvis following administration of 100 ml Iso luisa 300 IV contrast. Delayed images through the kidneys and coronal/sagittal reconstructions perform ed. CT DLP: 1331.3 mGycm Automated exposure control for dose reduction was used. FINDINGS: Heart normal size without pericardial effusion. Some strandy scarring at the lung bases, unchanged fr om 2013. No pleural effusion. There is a small hiatal hernia. Postsurgical changes of sleeve gastrectomy demonstrated. No focal liver lesion. Bile duct is mildly prominent at 6 mm with normal distal tapering. Portal veno us system is patent. Gallbladder, adrenal glands, kidneys, spleen, and pancreas appear within normal limits. No dilated small bowel, free fluid, or free air. No mesenteric or retroperitoneal lymphadenopathy. There is moderate stool burden. Oral contrast progressed to the mid transverse colon. Redundant sigmo id colon. No pericolonic inflammatory change. Bladder is urine distended. Numerous pelvic phlebolith. Uterus surgically absent. There is a densely calcified left ovarian lesion. Calcification measures up to 2.2 cm. There seems to be an enhancing no dular soft tissue component measures up to 2.3 x 1.3 cm versus 9 mm, previously. Uterus surgically ab sent. Right ovary not clearly seen. No abnormal fluid collection pelvis or pelvic lymphadenopathy. Bones: No osseous destructive process. IMPRESSION: 1. POST SURGICAL CHANGE OF SLEEVE GASTRECTOMY. THERE IS A SMALL HIATAL HERNIA NOTED. 2. LARGE 2.2 CM CALCIFICATION ASSOCIATED WITH THE LEFT OVARY. HOWEVER, IN ADDITION, THERE IS POSSIBLE ENHANCING NODULAR SOFT TISSUE COMPONENT MEASURING 2.3 CM VERSUS 9 MM BACK ON 2013. AN OVARIAN DERMOI D IS POSSIBLE. GIVEN THE ENLARGING NODULAR COMPONENT, RECOMMEND PELVIC ULTRASOUND OR MRI FOR FURTHER CHARACTERIZATION. [employer] SEASONAL REFERRAL MAY ALSO BE OF BENEFIT. 3. MODERATE STOOL BURDEN.
== END | disposition home or self-care (01) ==
LOC: RADCTMAIN 08:29
PROVIDERS: ATTEND Surgery Plastic and Reconstructive Surgery
DX: K44.9 Diaphragmatic hernia without obstruction or gangrene (principal); K21.9 Gastro-esophageal reflux disease without esophagitis; N83.8 Other noninflammatory disorders of ovary, fallopian tube and broad ligament; R59.0 Localized enlarged lymph nodes; M79.89 Other specified soft tissue disorders; Z98.84 Bariatric surgery status
CPT/HCPCS: 82565; 84520; 74220; 74177; 36415; Q9967

== ENCOUNTER 2020-05-25 06:08 | Day surgery (SDC) | payer MEDICARE, OTHER ==
[2020-05-24 11:04] VITALS: BMI 28.3
--- NOTE | 2020-05-25 04:36 | P.GSHP ---
History of Present Illness H&P Date: 05/25/20 CHIEF COMPLAINT: History of intra-abdominal adhesions HISTORY OF PRESENT ILLNESS: The patient is a 55-year-old female who presents with history of intra-abdominal adhesions from multiple prior surgeries including increasing abdominal pain. She now presents for diagnostic laparoscopy including lysis of adhesions. PAST MEDICAL HISTORY: Please see list. PAST SURGICAL HISTORY: Please see list. MEDICATIONS: Please see list. ALLERGIES: Please see list. SOCIAL HISTORY: No illicit drug use FAMILY HISTORY: No reports of Crohn disease or ulcerative colitis. REVIEW OF ORGAN SYSTEMS: CONSTITUTIONAL: No reports of fevers or chills. GI: Denies any blood in stools PHYSICAL EXAM: VITAL SIGNS: Stable GENERAL: Well-developed pleasant and in no acute distress. HEENT: No scleral icterus. Extraocular movements grossly intact. Moist buccal mucosa. NECK: Supple without lymphadenopathy. CHEST: Unlabored respirations. Equal bilateral excursions. CARDIOVASCULAR: Regular rate and rhythm. Distal 2+ pulses. ABDOMEN: Soft, diffuse abdominal tenderness. No peritonitis. MUSCULOSKELETAL: No clubbing, cyanosis, or edema. ASSESSMENT: 1. Diffuse abdominal pain. 2. History of multiple abdominal surgeries. 3. Intra-abdominal adhesions. PLAN: 1. Robotic lysis of adhesions were described in detail including risk of injury to the intestine, need for further surgery, and open technique. 2. DVT prophylaxis. 3. Antibiotic prophylaxis. 4. She is elevated risk for complications due to pre-existing history of multiple abdominal surgeries, chronic pain, diabetes insulin dependent. Past Medical History Past Medical History: CVA/TIA, Diabetes Mellitus, Eye Disorder, Fibromyalgia, GERD/Reflux, Osteoarthritis (OA), Thyroid Disorder Additional Past Medical History / Comment(s): hx Pancreatitis, TIA's-slow speach and a little "processing things", insulin pump, "macular edema", Vertigo , Chronic Back Pain-bulging discs, Osteopenia, small hiatal hernia, hx kidney "issue" from motrin/tylenol use-resolved History of Any Multi-Drug Resistant Organisms: None Reported Past Surgical History: Appendectomy, Bariatric Surgery, Hysterectomy, Orthopedic Surgery Additional Past Surgical History / Comment(s): ESTEFANY FUNDOPLASTY. lysis of adheasions, gastric sleeve, Carpal tunnel bilateral, right oophorectomy, mult laparoscopy, pannicuilectomy, sara lens implants/cataracts Past Anesthesia/Blood Transfusion Reactions: Motion Sickness Additional Past Anesthesia/Blood Transfusion Reaction / Comment(s): vertigo Smoking Status: Former smoker - Past Family History Father Family Medical History: Diabetes Mellitus Mother Family Medical History: No Reported History Medications and Allergies Home Medications Medication Instructions Recorded Confirmed Type Polyethylene Glycol 3350 [Miralax] 17 gm PO DAILY 01/07/18 05/24/20 History Aspirin [Adult Low Dose Aspirin EC] 81 mg PO DAILY 09/30/18 05/24/20 History buPROPion HCL [Wellbutrin SR] 150 mg PO BID 10/02/18 05/24/20 History Albuterol Inhaler [Ventolin Hfa 1 puff INHALATION DIRECTED PRN 05/24/20 05/24/20 History Inhaler] Calmagzinc+D3 1 tab PO DAILY 05/24/20 05/24/20 History Cholecalciferol [Vitamin D3 (25 25 mcg PO DAILY 05/24/20 05/24/20 History Mcg = 1000 Iu)] Ferrous Sulfate(Dose Unknown) 1 tab PO DAILY 05/24/20 05/24/20 History Hydrochlorothiazide 12.5 mg PO DAILY 05/24/20 05/24/20 History [hydroCHLOROthiazide] INSULIN LISPRO (humaLOG) [humaLOG] 0 units SQ CONTINUOUS 05/24/20 05/24/20 History Levothyroxine Sodium [Synthroid] 25 mcg PO DAILY 05/24/20 05/24/20 History Lutein 40 mg PO DAILY 05/24/20 05/24/20 History Mv-Min/Folic/Vit K/Lut/Ymai304 1 each PO DAILY 05/24/20 05/24/20 History [Alive Women's 50 Plus Tablet] Simvastatin [Zocor] 20 mg PO HS 05/24/20 05/24/20 History hydrOXYzine HCL [Atarax] 25 mg PO BID PRN 05/24/20 05/24/20 History methocarbamoL [Robaxin] 500 mg PO Q6HR PRN 05/24/20 05/24/20 History oxyCODONE HCL [OxyCONTIN] 10 mg PO QID PRN 05/24/20 05/24/20 History Allergies Allergy/AdvReac Type Severity Reaction Status Date / Time latex Allergy Rash/Hives Verified 05/24/20 10:34 vitamins Allergy Rash/Hives Uncoded 05/24/20 10:34
[~2020-05-25 06:08] MED LIST changes: -DEXAMETHASONE SOD PHOSPHATE 10 MG/ML 1 ML VIAL IV ONE; +DEXAMETHASONE SOD PHOSPHATE 4 MG/ML 1 ML VIAL IV PRN; -HEPARIN SODIUM,PORCINE 5,000 UNIT/ML 1 ML VIAL SQ ONE; +LACTATED RINGERS 1,000 ML IV SCH; -LIDOCAINE 1% 20 ML VIAL (10MG/ML) FOR IV START INTRADERMA PRN; -ONDANSETRON 4 MG/2 ML VIAL IVP ONE; +ONDANSETRON 4 MG/2 ML VIAL IVP PRN; +SCOPOLAMINE 1.5MG/72HR PATCH TRANSDERM PRN; -ceFAZolin IN SWFI 2 GM/20 ML SYRINGE IVP ONE; -fentaNYL (PF) 50 MCG/ML 2 ML AMP IV PRN
[2020-05-25] MEDS ORDERED: GABAPENTIN 300 MG CAP PO ONE (07:00)
[2020-05-25] MEDS ORDERED: HEPARIN SODIUM,PORCINE 5,000 UNIT/ML 1 ML VIAL SQ ONE (07:00)
[2020-05-25] MEDS ORDERED: ACETAMINOPHEN TAB 500 MG TAB PO ONE (07:00)
[2020-05-25] MEDS ORDERED: MELOXICAM 7.5 MG TAB PO ONE (07:00)
[2020-05-25] MEDS ORDERED: DEXTROSE 50% SYRINGE 50 ML IVP ONE (07:10)
[2020-05-25 07:29] LABS: Glucose,Whole Blood 69 mg/dL (75-99)
[2020-05-25] MEDS ORDERED: fentaNYL (PF) 50 MCG/ML 2 ML AMP IV ONE (07:32)
[2020-05-25 07:39] LABS: Basophils # (A) 0.1 k/uL (0-0.2); Basophils % (A) 1 %; Eosinophils # (A) 0.3 k/uL (0-0.7); Eosinophils % (A) 3 %; HCT 40.4 % (34.0-46.0); HGB 13.3 gm/dL (11.4-16.0); Lymphocytes % (A) 44 %; MCH 30.1 pg (25.0-35.0); MCHC 32.9 g/dL (31.0-37.0); MCV 91.5 fL (80.0-100.0); Mean Platelet Volume 6.4; Monocytes # (A) 0.4 k/uL (0-1.0); Monocytes % (A) 5 %; Neutrophils # (A) 4.2 k/uL (1.3-7.7); Neutrophils % (A) 46 %; Platelet Count 462 k/uL (150-450); RBC 4.42 m/uL (3.80-5.40); RDW 12.5 % (11.5-15.5); WBC 9.2 k/uL (3.8-10.6)
[2020-05-25] MEDS ORDERED: fentaNYL (PF) 50 MCG/ML 2 ML AMP ONE (07:39)
[2020-05-25] MEDS ORDERED: SUCCINYLCHOLINE CHLORIDE 100 MG/5 ML SYR IV ONE (07:39)
[2020-05-25] MEDS ORDERED: PROPOFOL 10 MG/ML 20 ML VIAL IV ONE (07:39)
[2020-05-25] MEDS ORDERED: ROCURONIUM 10 MG/ML (10 ML VIAL) IV ONE (07:39)
[2020-05-25] MEDS ORDERED: HYDROmorphone (PF) 1 MG/ML ONE (07:39)
[2020-05-25] MEDS ORDERED: LIDOCAINE 1% INJ 10MG/ML (20 ML MDV) ONE (07:39)
[2020-05-25] MEDS ORDERED: PHENYLEPHRINE 10 MG/ML VIAL ONE (07:39)
[2020-05-25] MEDS ORDERED: ROPIVACAINE 5 MG/ML 30 ML VIAL ONE (07:39)
[2020-05-25] MEDS ORDERED: GLYCOPYRROLATE 0.2 MG/ML 2 ML VIAL ONE (07:39)
[2020-05-25] MEDS ORDERED: NEOSTIGMINE 1 MG/ML 10 ML VIAL ONE (07:39)
[2020-05-25 07:43] LABS: Glucose,Whole Blood 109 mg/dL (75-99)
[2020-05-25] MEDS ORDERED: LIDOCAINE 1%-EPI 1:100,000 20 ML VIAL SQ ONE (07:45)
[2020-05-25 07:52] LABS: Albumin 3.9 g/dL (3.5-5.0); Calcium 9.1 mg/dL (8.4-10.2); Potassium 3.9 mmol/L (3.5-5.1); Total Bilirubin 0.4 mg/dL (0.2-1.3); Total Protein 6.6 g/dL (6.3-8.2)
--- NOTE | 2020-05-25 08:17 | P.ANPRN ---
Procedure Note - Anesthesia - Nerve Block Performed Bilateral Transversus Abdominis Time Out Performed: Yes (07:30) Date of Procedure: 05/25/20 Procedure Start Time: : Procedure Stop Time: : Location of Patient: PreOp Indication: Acute Post-Operative Pain, Requested by Surgeon (Dr Castillo) Sedation Type: Sedate with meaningful contact maintained Preparation: Sterile Prep Position: Supine Catheter: None Needle Types: Pajunk Needle Gauge: 21 Ultrasound used to visualize needle placement: Yes Ultrasound used to observe medication spread: Yes Injectate: 0.5% Ropivacaine (see comment for volume) (15cc each side) Blood Aspirated: No Pain Paresthesia on Injection Noted: No Resistance on Injection: Normal Image Stored and Saved: Yes Events: Uneventful and Well Tolerated
[2020-05-25] MEDS ORDERED: LACTATED RINGERS 1,000 ML IV ONE ×2 (08:38→11:01)
[2020-05-25 09:22] VITALS: TEMP 97.7
--- NOTE | 2020-05-25 09:23 | P.OP ---
Date of Procedure: 05/25/20 Description of Procedure: SURGEON: ROB MELO MD PREOPERATIVE DIAGNOSES: 1. Peritoneal adhesions, severe 2. Generalized abdominal pain 3. History of multiple abdominal surgeries 4. Hypothyroidism 5. Epigastric abdominal pain. 6. History of sleeve gastrectomy. 7. Depressive disorder 8. Fibromyalgia with chronic pain syndrome 9. Hyperlipidemia 10. Chronic constipation 11. Diabetes type 2, insulin-dependent with diabetic retinopathy 12. Gastroesophageal reflux disease POSTOPERATIVE DIAGNOSES: 1. Peritoneal adhesions, severe 2. Generalized abdominal pain 3. History of multiple abdominal surgeries 4. Hypothyroidism 5. Epigastric abdominal pain. 6. History of sleeve gastrectomy. 7. Depressive disorder 8. Fibromyalgia with chronic pain syndrome 9. Hyperlipidemia 10. Chronic constipation 11. Diabetes type 2, insulin-dependent with diabetic retinopathy 12. Gastroesophageal reflux disease 13. Chronic cholecystitis OPERATION: 1. Robotic-assisted da Jasmine Xi laparoscopic extensive lysis of adhesions over 1 hr COMPLICATIONS: None. Anesthesia: GETA, local, abdominal wall block Estimated Blood Loss (ml): 5 Pathology: none sent Condition: stable Disposition: same day OPERATIVE FINDINGS: 1. Severe peritoneal adhesions involving right upper quadrant, left upper quadrant, pelvis 2. Redundant sigmoid colon, splenic flexure without active sigmoid volvulus 3. Pericholecystic adhesions INDICATIONS: The patient is a 55-year-old female with history of severe p eritoneal adhesions, with moderate severe recurrent abdominal pain. Surgical intervention with lysis of adhesions was described. Informed consent was obtained. Robotic assisted laparoscopic approach was described. Benefits and risks of the procedure including but not limited to bleeding, infection, injury to the small bowel was described. Informed consent was obtained. DESCRIPTION OF PROCEDURE: Patient was brought to the operating room, placed in supine position. After general induction, the abdomen had been prepped and draped in standard sterile fashion. The robotic da Jasmine XI system was primed. After a timeout protocol was performed, the patient had been prepped and draped in standard sterile fashion. The robot was docked along the right lateral abdomen. The patient was reposit ioned in reverse Trendelenburg position of 14- degrees. A 5 mm 0 degrees laparoscopic trocar entry was performed along the left upper quadrant. The abdomen was insufflated to 15 mmHg pressure which he tolerated well. Diagnostic laparoscopy demonstrated severe intra-abdominal adhesions involving the pelvis, right upper quadrant, left upper quadrant. The small bowel was unremarkable without evidence of dilation or suggestion of obstruction. No injury to the bowel, viscera or mesentery was identified. The sigmoid colon was highly redundant with adherence to the lower pelvis consistent with her abdominal pain. Next, three 8 mm robotic ports were placed along the right lateral abdominal wall. The camera 8-mm port was initially docked along the epigastrium. Please note that the ports were placed at least 8 cm away from the target anatomy. Instruments were interchanged using only 3 ports for a grasper, vessel sealer, and scissors with cautery. Instruments were interchanged by the assistant passenger locomotive engineer including Bovie cautery scissors. I had sat at the console. Extensive lysis of adhesions over 1 hour was performed to address the pelvis with the sigmoid colon adherent to the abdominal wall. Carefully the adhesions were taken down without injury to the colon using vessel sealer and cautery on scissors. Severe adhesions along left upper quadrant also confirmed as the patient's location of pain after dressing the bed to reverse Trendelenburg position. Hemostasis was excellent and abdomen was dry upon completion. Completion lysis of adhesions confirmed no ventral hernias. Careful attention on the right upper quadrant demonstrated chronic cholecystitis with pericholecystic adhesions undisturbed. The robot was undocked. All pneumoperitoneum and instruments were evacuated from the abdominal cavity. The incisions were reapproximated using 4-0 Monocryl in an interrupted subcuticular fashion. Please note along the trocar sites, local anesthetic was placed as a field block prior to insertion of all instruments. Liquid glue was applied to the skin. At the end of the procedure needle, sponge, and instrument count had been verified correct by the prepress technician. The patient was transferred to postanesthesia care unit in stable condition. Intraoperative images including findings were described to the patients family. Plan - Discharge Summary Discharge Rx Participant: Yes New Discharge Prescriptions: No Action Polyethylene Glycol 3350 [Miralax] 17 gm PO DAILY Aspirin [Adult Low Dose Aspirin EC] 81 mg PO DAILY buPROPion HCL [Wellbutrin SR] 150 mg PO BID INSULIN LISPRO (humaLOG) [humaLOG] 0 units SQ CONTINUOUS Albuterol Inhaler [Ventolin Hfa Inhaler] 1 puff INHALATION DIRECTED PRN PRN Reason: sob hydrOXYzine HCL [Atarax] 25 mg PO BID PRN PRN Reason: Anxiety Hydrochlorothiazide [hydroCHLOROthiazide] 12.5 mg PO DAILY Simvastatin [Zocor] 20 mg PO HS Levothyroxine Sodium [Synthroid] 25 mcg PO DAILY methocarbamoL [Robaxin] 500 mg PO Q6HR PRN PRN Reason: Pain Cholecalciferol [Vitamin D3 (25 Mcg = 1000 Iu)] 25 mcg PO DAILY Calmagzinc+D3 1 tab PO DAILY Ferrous Sulfate(Dose Unknown) 1 tab PO DAILY Lutein 40 mg PO DAILY Mv-Min/Folic/Vit K/Lut/Mprb087 [Alive Women's 50 Plus Tablet] 1 each PO DAILY oxyCODONE HCL [OxyCONTIN] 10 mg PO QID PRN PRN Reason: Pain Discharge Medication List Polyethylene Glycol 3350 [Miralax] 17 gm PO DAILY 01/07/18 [History] Aspirin [Adult Low Dose Aspirin EC] 81 mg PO DAILY 09/30/18 [History] buPROPion HCL [Wellbutrin SR] 150 mg PO BID 10/02/18 [History] Albuterol Inhaler [Ventolin Hfa Inhaler] 1 puff INHALATION DIRECTED PRN 05/24/20 [History] Calmagzinc+D3 1 tab PO DAILY 05/24/20 [History] Cholecalciferol [Vitamin D3 (25 Mcg = 1000 Iu)] 25 mcg PO DAILY 05/24/20 [History] Ferrous Sulfate(Dose Unknown) 1 tab PO DAILY 05/24/20 [History] Hydrochlorothiazide [hydroCHLOROthiazide] 12.5 mg PO DAILY 05/24/20 [History] INSULIN LISPRO (humaLOG) [humaLOG] 0 units SQ CONTINUOUS 05/24/20 [History] Levothyroxine Sodium [Synthroid] 25 mcg PO DAILY 05/24/20 [History] Lutein 40 mg PO DAILY 05/24/20 [History] Mv-Min/Folic/Vit K/Lut/[id number] [Alive Women's 50 Plus Tablet] 1 each PO DAILY 05/24/20 [History] Simvastatin [Zocor] 20 mg PO HS 05/24/20 [History] hydrOXYzine HCL [Atarax] 25 mg PO BID PRN 05/24/20 [History] methocarbamoL [Robaxin] 500 mg PO Q6HR PRN 05/24/20 [History] oxyCODONE HCL [OxyCONTIN] 10 mg PO QID PRN 05/24/20 [History]
[2020-05-25] MEDS: HYDROmorphone 0.5 MG/0.5 ML SYRINGE IVP PRN ×4 (09:25→10:16)
[2020-05-25 09:32] LABS: Glucose,Whole Blood 173 mg/dL (75-99)
[2020-05-25] MEDS ORDERED: diphenhydrAMINE 50 MG/ML 1 ML VIAL IVP ONE (09:42)
[2020-05-25] MEDS ORDERED: KETOROLAC 15 MG/ML 1 ML VIAL IVP ONE ×2 (10:06→10:07)
[2020-05-25] MEDS ORDERED: HYDROmorphone 0.5 MG/0.5 ML SYRINGE IVP ONE ×3 (10:27→10:35)
[2020-05-25 11:18] VITALS: RESP 16
[2020-05-25 11:22] LABS: Glucose,Whole Blood 196 mg/dL (75-99)
[2020-05-25 13:00] VITALS: BP 112/66; PULSE 86
== END 2020-05-25 12:50 | disposition home or self-care (01) ==
LOC: OR 06:08
PROVIDERS: ATTEND Surgery Plastic and Reconstructive Surgery
DX: K66.0 Peritoneal adhesions (postprocedural) (postinfection) (principal); Q43.8 Other specified congenital malformations of intestine; E78.5 Hyperlipidemia, unspecified; E03.9 Hypothyroidism, unspecified; M79.7 Fibromyalgia; K21.9 Gastro-esophageal reflux disease without esophagitis; M19.90 Unspecified osteoarthritis, unspecified site; F32.9 Major depressive disorder, single episode, unspecified; K59.09 Other constipation; E11.319 Type 2 diabetes mellitus with unspecified diabetic retinopathy without macular edema; Z79.890 Hormone replacement therapy; Z79.4 Long term (current) use of insulin; Z79.82 Long term (current) use of aspirin; Z79.899 Other long term (current) drug therapy; Z91.040 Latex allergy status; Z87.891 Personal history of nicotine dependence; Z86.73 Personal history of transient ischemic attack (TIA), and cerebral infarction without residual deficits; G89.4 Chronic pain syndrome; Z98.84 Bariatric surgery status; Z90.710 Acquired absence of both cervix and uterus; Z98.890 Other specified postprocedural states; Z98.41 Cataract extraction status, right eye; Z98.42 Cataract extraction status, left eye; Z96.1 Presence of intraocular lens; Z83.3 Family history of diabetes mellitus; Z88.8 Allergy status to other drugs, medicaments and biological substances
CPT/HCPCS: 93005; 64488; 80053; 85025; 44180; J2250; J1200; J1644; J1100; J2370; J2710; J0690; J2405; J2001; J3010; J1170 ×2; J2795; J1885; J0330; J2704

== ENCOUNTER → 2020-06-04 | Outpatient (CLI) | payer MEDICARE, OTHER ==
[2020-06-04 20:28] LABS: HGB 13.4 g/dL (12.0-15.0); MCH 30.9 pg (27.0-32.0); MCHC 32.7 g/dL (32.0-37.0); MCV 94.5 fL (80.0-97.0); Mean Platelet Volume 8.7 fL (9.5-12.2); Platelet Count 451 X 10*3/uL (140-440); RBC 4.34 X 10*6/uL (4.10-5.20); RDW 11.9 % (11.5-14.5); WBC 10.37 X 10*3/uL (4.50-10.00)
[2020-06-04 20:49] LABS: % Iron Saturation 31.46 (12.00-45.00); African American GFR (CKD) 66.4 (60.0-200.0); Albumin 4.6 g/dL (3.80-4.90); Albumin/Globulin Ratio 1.92 (1.60-3.17); BUN/Creat Ratio 19.09 Ratio (12.00-20.00); Calcium 9.9 mg/dL (8.7-10.3); Globulin 2.4 g/dL (1.6-3.3); LDL Cholesterol,Calculated 103.6 mg/dL (0.0-131.0); Magnesium 1.9 mg/dL (1.5-2.4); Non-African American GFR(CKD) 57.3 (60.0-200.0); Total Bilirubin 0.3 mg/dL (0.3-1.2); VLDL Calculation 22.4 mg/dL (5.00-40.00)
[2020-06-04 20:57] LABS: Ferritin 189.8 ng/mL (10.0-291.0)
[2020-06-04 22:26] LABS: Hemoglobin A1C 6.8 % (4.0-6.0)
[2020-06-05 00:05] LABS: INR 0.9 (0.90-1.11); Partial Thromboplastin Time 26.1 sec (23.5-31.0); Prothrombin Time 9.9 sec (9.9-11.9)
[2020-06-05 13:53] LABS: Vitamin A 72 ug/dL (38-106)
[2020-06-05 13:55] LABS: Zinc, Serum 80 ug/dL (60-130)
== END | disposition home or self-care (01) ==
LOC: LABWHC1 10:43
PROVIDERS: ATTEND Surgery Plastic and Reconstructive Surgery
DX: E21.1 Secondary hyperparathyroidism, not elsewhere classified (principal); D50.8 Other iron deficiency anemias; K90.89 Other intestinal malabsorption; E55.9 Vitamin D deficiency, unspecified; K74.1 Hepatic sclerosis; N19 Unspecified kidney failure; K50.90 Crohn's disease, unspecified, without complications; E89.1 Postprocedural hypoinsulinemia; E66.01 Morbid (severe) obesity due to excess calories
CPT/HCPCS: 36415; 80053; 80061; 82306; 82525; 82607; 82728; 82746; 83036; 83540; 83550; 83735; 83970; 84100; 84134; 84255; 84425; 84443; 84590; 84630; 85027; 85610; 85730

== ENCOUNTER 2021-03-05 08:34 | Observation (INO) | payer MEDICARE, OTHER ==
[2021-03-05] MEDS ORDERED: SODIUM CHLORIDE 0.9% 500 ML 500 ML IV STA (09:21)
[2021-03-05] MEDS ORDERED: HYDROmorphone 0.5 MG/0.5 ML SYRINGE IVP STA ×2 (09:21→12:31)
--- NOTE | 2021-03-05 09:41 | ED ---
General Adult HPI - General Chief complaint: Abdominal Pain Stated complaint: N/V Time Seen by Provider: 03/05/21 08:45 Source: patient, RN notes reviewed, old records reviewed Mode of arrival: ambulatory Limitations: no limitations - History of Present Illness Initial comments: This a 56-year-old female presents emergency Department with a 2 year history of abdominal pain. Patient states the pain today is like it always is except a little worse and she couldn't take it so she came to the emergency department. Patient denies any nausea vomiting diarrhea. Patient denies any fever. Patient denies any back pain. Patient denies any dysuria hematuria urinary frequency. Patient states the pain is diffuse and is very crampy in nature. Patient states she's been seen by her surgeon multiple times for this. Patient states she's also had multiple abdominal surgeries. - Related Data Home Medications Medication Instructions Recorded Confirmed Polyethylene Glycol 3350 [Miralax] 17 gm PO DAILY 01/07/18 05/25/20 Aspirin [Adult Low Dose Aspirin EC] 81 mg PO DAILY 09/30/18 05/24/20 buPROPion HCL [Wellbutrin SR] 150 mg PO BID 10/02/18 05/25/20 Albuterol Inhaler [Ventolin Hfa 1 puff INHALATION DIRECTED PRN 05/24/20 05/25/20 Inhaler] Calmagzinc+D3 1 tab PO DAILY 05/24/20 05/25/20 Cholecalciferol [Vitamin D3 (25 25 mcg PO DAILY 05/24/20 05/25/20 Mcg = 1000 Iu)] Ferrous Sulfate(Dose Unknown) 1 tab PO DAILY 05/24/20 05/25/20 Hydrochlorothiazide 12.5 mg PO DAILY 05/24/20 05/25/20 [hydroCHLOROthiazide] INSULIN LISPRO (humaLOG) [humaLOG] 0 units SQ CONTINUOUS 05/24/20 05/25/20 Levothyroxine Sodium [Synthroid] 25 mcg PO DAILY 05/24/20 05/25/20 Lutein 40 mg PO DAILY 05/24/20 05/25/20 Mv-Min/Folic/Vit K/Lut/[id number] 1 each PO DAILY 05/24/20 05/24/20 [Alive Women's 50 Plus Tablet] Simvastatin [Zocor] 20 mg PO HS 05/24/20 05/25/20 hydrOXYzine HCL [Atarax] 25 mg PO BID PRN 05/24/20 05/25/20 methocarbamoL [Robaxin] 500 mg PO Q6HR PRN 05/24/20 05/25/20 oxyCODONE HCL [OxyCONTIN] 10 mg PO QID PRN 05/24/20 05/25/20 Previous Rx's Medication Instructions Recorded Ibuprofen [Motrin] 600 mg PO Q8HR PRN #30 tab 05/25/20 Allergies Allergy/AdvReac Type Severity Reaction Status Date / Time latex Allergy Rash/Hives Verified 03/05/21 08:42 vitamins Allergy Rash/Hives Uncoded 03/05/21 08:42 Review of Systems ROS Statement: Those systems with pertinent positive or pertinent negative responses have been documented in the HPI. ROS Other: All systems not noted in ROS Statement are negative. Past Medical History Past Medical History: CVA/TIA, Diabetes Mellitus, Eye Disorder, Fibromyalgia, GERD/Reflux, Osteoarthritis (OA), Thyroid Disorder Additional Past Medical History / Comment(s): hx Pancreatitis, TIA's-slow speach and a little "processing things", insulin pump, "macular edema", Vertigo , Chronic Back Pain-bulging discs, Osteopenia, small hiatal hernia, hx kidney "issue" from motrin/tylenol use-resolved History of Any Multi-Drug Resistant Organisms: None Reported Past Surgical History: Appendectomy, Bariatric Surgery, Hysterectomy, Orthopedic Surgery Additional Past Surgical History / Comment(s): ESTEFANY FUNDOPLASTY. lysis of adheasions, gastric sleeve, Carpal tunnel bilateral, right oophorectomy, mult laparoscopy, pannicuilectomy, sara lens implants/cataracts Past Anesthesia/Blood Transfusion Reactions: Motion Sickness Additional Past Anesthesia/Blood Transfusion Reaction / Comment(s): vertigo Past Psychological History: Depression Smoking Status: Former smoker - Past Family History Father Family Medical History: Diabetes Mellitus Mother Family Medical History: No Reported History General Exam - General Exam Comments Initial Comments: GENERAL: Patient is well-developed and well-nourished. Patient is nontoxic and well- hydrated and is in mild distress. ENT: Neck is soft and supple. No significant lymphadenopathy is noted. Oropharynx is clear. Moist mucous membranes. Neck has full range of motion without eliciting any pain. EYES: The sclera were anicteric and conjunctiva were pink and moist. Extraocular movements were intact and pupils were equal round and reactive to light. Eyel ids were unremarkable. PULMONARY: Unlabored respirations. Good breath sounds bilaterally. No audible rales rhonchi or wheezing was noted. CARDIOVASCULAR: There is a regular rate and rhythm without any murmurs gallops or rubs. ABDOMEN: Patient's abdomen is nontender. Patient states it hurts all over but when I palpate her she does not complain of any specific area of tenderness or that I'm making the pain worse SKIN: Skin is clear with no lesions or rashes and otherwise unremarkable. NEUROLOGIC: Patient is alert and oriented x3. Cranial nerves II through XII are grossly intact. Motor and sensory are also intact. Normal speech, volume and content. Symmetrical smile. MUSCULOSKELETAL: Normal extremities with adequate strength and full range of motion. No lower extremity swelling or edema. No calf tenderness. LYMPHATICS: No significant lymphadenopathy is noted PSYCHIATRIC: Normal psychiatric evaluation. Limitations: no limitations Course Vital Signs 03/05/21 08:42 Temperature 98.4 F Pulse Rate 118 H Respiratory 20 Rate Blood Pressure 137/74 O2 Sat by Pulse 97 Oximetry Medical Decision Making - Medical Decision Making CT abdomen pelvis shows slight dilated sigmoid colon. I spoke with Dr. Bower he agreed to admit the patient I wrote admitting orders I consult Dr. Leos - Lab Data Result diagrams: 03/05/21 09:48 03/05/21 09:48 Lab Results 03/05/21 03/05/21 03/05/21 Range/Units 09:48 09:48 09:48 WBC 16.9 H (3.8-10.6) k/uL RBC 4.96 (3.80-5.40) m/uL Hgb 15.8 (11.4-16.0) gm/dL Hct 45.2 (34.0-46.0) % MCV 91.1 (80.0-100.0) fL MCH 31.9 (25.0-35.0) pg MCHC 35.0 (31.0-37.0) g/dL RDW 12.1 (11.5-15.5) % Plt Count 373 (150-450) k/uL MPV 7.3 Neutrophils % 76 % Lymphocytes % 17 % Monocytes % 6 % Eosinophils % 1 % Basophils % 1 % Neutrophils # 12.8 H (1.3-7.7) k/uL Lymphocytes # 2.8 (1.0-4.8) k/uL Monocytes # 1.0 (0-1.0) k/uL Eosinophils # 0.1 (0-0.7) k/uL Basophils # 0.1 (0-0.2) k/uL Sodium 136 L (137-145) mmol/L Potassium 3.5 (3.5-5.1) mmol/L Chloride 103 (98-107) mmol/L Carbon Dioxide 21 L (22-30) mmol/L Anion Gap 12 mmol/L BUN 18 H (7-17) mg/dL Creatinine 1.13 H (0.52-1.04) mg/dL Est GFR (CKD-EPI)AfAm 64 (>60 ml/min/1.73 sqM) Est GFR (CKD-EPI)NonAf 55 (>60 ml/min/1.73 sqM) Glucose 88 (74-99) mg/dL Plasma Lactic Acid Obed 1.6 (0.7-2.0) mmol/L Calcium 8.7 (8.4-10.2) mg/dL Total Bilirubin 0.5 (0.2-1.3) mg/dL AST 58 H (14-36) U/L ALT 31 (4-34) U/L Alkaline Phosphatase 57 (38-126) U/L Total Protein 6.9 (6.3-8.2) g/dL Albumin 3.9 (3.5-5.0) g/dL Amylase 145 H (30-110) U/L Lipase 351 H (23-300) U/L Urine Color Urine Appearance (Clear) Urine pH (5.0-8.0) Ur Specific Goltry (1.001-1.035) Urine Protein (Negative) Urine Glucose (UA) (Negative) Urine Ketones (Negative) Urine Blood (Negative) Urine Nitrite (Negative) Urine Bilirubin (Negative) Urine Urobilinogen (<2.0) mg/dL Ur Leukocyte Esterase (Negative) Urine RBC (0-5) /hpf Urine WBC (0-5) /hpf Ur Squamous Epith Cells (0-4) /hpf Urine Bacteria (None) /hpf Hyaline Casts (0-2) /lpf Urine Mucus (None) /hpf Urine Yeast (Budding) (None) /hpf 11/16/21 Range/Units 09:54 WBC (3.8-10.6) k/uL RBC (3.80-5.40) m/uL Hgb (11.4-16.0) gm/dL Hct (34.0-46.0) % MCV (80.0-100.0) fL MCH (25.0-35.0) pg MCHC (31.0-37.0) g/dL RDW (11.5-15.5) % Plt Count (150-450) k/uL MPV Neutrophils % % Lymphocytes % % Monocytes % % Eosinophils % % Basophils % % Neutrophils # (1.3-7.7) k/uL Lymphocytes # (1.0-4.8) k/uL Monocytes # (0-1.0) k/uL Eosinophils # (0-0.7) k/uL Basophils # (0-0.2) k/uL Sodium (137-145) mmol/L Potassium (3.5-5.1) mmol/L Chloride (98-107) mmol/L Carbon Dioxide (22-30) mmol/L Anion Gap mmol/L BUN (7-17) mg/dL Creatinine (0.52-1.04) mg/dL Est GFR (CKD-EPI)AfAm (>60 ml/min/1.73 sqM) Est GFR (CKD-EPI)NonAf (>60 ml/min/1.73 sqM) Glucose (74-99) mg/dL Plasma Lactic Acid Obed (0.7-2.0) mmol/L Calcium (8.4-10.2) mg/dL Total Bilirubin (0.2-1.3) mg/dL AST (14-36) U/L ALT (4-34) U/L Alkaline Phosphatase (38-126) U/L Total Protein (6.3-8.2) g/dL Albumin (3.5-5.0) g/dL Amylase (30-110) U/L Lipase (23-300) U/L Urine Color Yellow Urine Appearance Cloudy H (Clear) Urine pH 5.5 (5.0-8.0) Ur Specific G[place]ry 1.026 (1.001-1.035) Urine Protein Trace H (Negative) Urine Glucose (UA) Negative (Negative) Urine Ketones Negative (Negative) Urine Blood Trace H (Negative) Urine Nitrite Negative (Negative) Urine Bilirubin Negative (Negative) Urine Urobilinogen 2.0 (<2.0) mg/dL Ur Leukocyte Esterase Trace H (Negative) Urine RBC 3 (0-5) /hpf Urine WBC 10 H (0-5) /hpf Ur Squamous Epith Cells 7 H (0-4) /hpf Urine Bacteria Many H (None) /hpf Hyaline Casts 22 H (0-2) /lpf Urine Mucus Rare H (None) /hpf Urine Yeast (Budding) Rare H (None) /hpf Disposition Clinical Impression: Abdominal pain Disposition: ADMITTED IP TO THIS HOSP Referrals: Siria Brar MD [Primary Care Provider] - 1-2 days Time of Disposition: 12:30
--- NOTE | 2021-03-05 10:27 | XR ---
KUB HISTORY: Abdominal pain Frontal KUB and T2 images correlated prior exam 01/22/2019 Lung bases are clear. There is some loops of colon which show retained fecal debris, air filled loop of colon is present in the left hemiabdomen. Surgical clips are present in left hemiabdomen. No evide nt pneumoperitoneum. Multiple calcifications are present within the pelvis similar to prior exam. IMPRESSION: Nonspecific findings. There is an ovarian calcification, phleboliths within the pelvis. S ee report CT scan 04/26/2020. Follow-up as indicated. Postop changes.
[2021-03-05 10:28] LABS: Basophils # (A) 0.1 k/uL (0-0.2); Basophils % (A) 1 %; Eosinophils # (A) 0.1 k/uL (0-0.7); Eosinophils % (A) 1 %; HCT 45.2 % (34.0-46.0); HGB 15.8 gm/dL (11.4-16.0); Lymphocytes # (A) 2.8 k/uL (1.0-4.8); Lymphocytes % (A) 17 %; MCH 31.9 pg (25.0-35.0); MCV 91.1 fL (80.0-100.0); Mean Platelet Volume 7.3; Monocytes % (A) 6 %; Neutrophils # (A) 12.8 k/uL (1.3-7.7); Neutrophils % (A) 76 %; Platelet Count 373 k/uL (150-450); RBC 4.96 m/uL (3.80-5.40); RDW 12.1 % (11.5-15.5); WBC 16.9 k/uL (3.8-10.6)
[2021-03-05 10:35] LABS: Appearance,Urine Cloudy (Clear); Bacteria,Urine Many /hpf; Bilirubin,Urine Negative (Negative); Blood,Urine Trace (Negative); Budding Yeast,Urine Rare /hpf; Color,Urine Yellow; Glucose,Urine (UA) Negative (Negative); Hyaline Casts,Urine 22 /lpf (0-2); Ketones,Urine Negative (Negative); Leukocyte Esterase,Urine Trace (Negative); Mucus,Urine Rare /hpf; Nitrite,Urine Negative (Negative); PH, Urine 5.5 (5.0-8.0); Protein,Urine Trace (Negative); RBC,Urine 3 /hpf (0-5); Specific Gravity,Urine 1.026 (1.001-1.035); Squamous Epithelial Cell,Urine 7 /hpf (0-4); WBC,Urine 10 /hpf (0-5)
[2021-03-05 10:44] LABS: Albumin 3.9 g/dL (3.5-5.0); Calcium 8.7 mg/dL (8.4-10.2); Total Bilirubin 0.5 mg/dL (0.2-1.3); Total Protein 6.9 g/dL (6.3-8.2)
[2021-03-05 10:49] LABS: Potassium 3.5 mmol/L (3.5-5.1)
--- NOTE | 2021-03-05 11:56 | CT ---
EXAMINATION TYPE: CT abdomen pelvis w con DATE OF EXAM: 03/05/2021 COMPARISON: 04/26/2020 HISTORY: generalized abdominal pain CT DLP: 1249.3 mGycm Automated exposure control for dose reduction was used. CONTRAST: CT scan of the abdomen pelvis is performed with IV Contrast, patient injected with 80 mL of Isovue 37 0. FINDINGS- LUNG BASES-subsegmental groundglass changes may been the basis of atelectasis correlate clinically to exclude pneumonitis.. LIVER/GB-mild prominence of the gallbladder with no evidence of gallstones.. PANCREAS- No gross abnormality is seen. SPLEEN- No gross abnormality is seen. ADRENALS- No gross abnormality is seen. KIDNEYS/BLADDER- no hydronephrosis nephrolithiasis or renal mass. BOWEL-there is a markedly dilated segment of sigmoid colon. Cannot exclude mild wall thickening of th e rectosigmoid junction correlate with direct visualization as clinically warranted. Post gastric surgery noted.. LYMPH NODES- No greater than 1cm abdominal or pelvic lymph nodes areappreciated. OSSEOUS STRUCTURES-hypertrophic changes noted.. OTHER- Bladder is urine distended. Numerous pelvic phlebolith. Uterus surgically absent. There is a densely calcified left ovarian lesion. Calcification measures up to 2.2 cm. There seems to be an enha ncing nodular soft tissue component measures up to 2.3 x 1.3 cm versus 9 mm, previously. Uterus surgi gaurav absent. Right ovary not clearly seen. IMPRESSION- 1. There is a dilated segment of sigmoid colon in the anterior lower pelvis. Air is seen within the r ectum. Questionable wall thickening at the rectosigmoid junction could be correlated with direct visu alization to exclude mucosal lesion as clinically warranted. 2. Stable densely calcified left adnexal lesion further evaluation with MRI recommended. 3. Constipation 4. Postsurgical changes involving the stomach. 5. Subsegmental groundglass changes correlate for atelectasis versus early pneumonitis.
[2021-03-05] MEDS ORDERED: SODIUM CHLORIDE 0.9% 1,000 ML IV ONE (12:35)
[2021-03-05] MEDS ORDERED: LACTULOSE 20 GM/30 ML CUP PO ONE (15:31)
[2021-03-05] MEDS ORDERED: MAGNESIUM HYDROXIDE 2,400 MG/10 ML CUP PO ONE (15:31)
--- NOTE | 2021-03-05 15:42 | P.GSCN ---
History of Present Illness Consult date: 03/05/21 History of present illness: CHIEF COMPLAINT: Abdominal pain HISTORY OF PRESENT ILLNESS: This is a 56-year-old female with a known history of chronic abdominal pain and multiple abdominal surgeries. Patient reports that her last surgery was in October at that time she had a hemorrhoidectomy. Patient reports that she has had chronic abdominal pain for about 2 years. This morning her abdominal pain was very severe. She reports that was located in the lower abdomen and she was having bloating. She is occasionally had nausea and vomiting and has been dealing with constipation at times. Her stools a bit hard and she has been having small amounts of bright red blood noted in the stools intermittently since the hemorrhoid surgery. Patient has been having flatus. Patient denies any fever chills or sweats. Denies any difficulty urinating. Her last colonoscopy was a year ago in in which patient reports no abnormalities. Surgical service has been counseled in regards to patient's abdominal pain. PAST MEDICAL HISTORY: See list. PAST SURGICAL HISTORY: See list. MEDICATIONS: See list. ALLERGIES: See list. SOCIAL HISTORY: No illicit drug use. REVIEW OF SYSTEMS: CONSTITUTIONAL: Denies fever or chills. HEENT: Denies blurred vision, vision changes, or eye pain. Denies hemoptysis ENDOCRINE: Denies heat or cold intolerance. CARDIOVASCULAR: Denies chest pain or pressure. RESPIRATORY: No shortness of breath. GASTROINTESTINAL: Please refer to HPI NEURO: Denies history of seizures. PSYCH: No depression or suicidal ideation HEMATOLOGIC: Denies bleeding disorders. LYMPHATIC: The patient denies any lumps and bumps around the neck. GENITOURINARY: Denies any blood in urine or increased urinary frequency. MUSCULOSKELETAL: Denies myalgias. Denies joint swelling. Denies decreased range of motion beyond patients baseline. SKIN: Denies pruitis. Denies rash. PHYSICAL EXAM: VITAL SIGNS: Reviewed GENERAL: Well-developed in no acute distress. HEENT: No sclera icterus. Extraocular movements grossly intact. Moist buccal mucosa. Head is atraumatic, normocephalic. Hears conversational speech. No nasal drainage. NECK: Supple without lymphadenopathy. CHEST: Non-labored respirations and equal bilateral excursions. CARDIOVASCULAR: Palpable 2+ radial pulses. ABDOMEN: Soft. Mildly distended. Minimal tenderness with palpation of the lo wer abdomen MUSCULOSKELETAL: No clubbing or cyanosis. NEUROLOGIC: No focal or lateralizing signs. Cranial nerves II through XII grossly intact. PSYCH: Appropriate affect. Alert and oriented to person, place and time. SKIN: Well perfused. Good skin turgor. LABORATORY DATA: WBC 16.9 Hgb 15.8 PLT 373 Sodium 136 potassium 3.5 creatinine 1.13 AST 58 ALT 31 total bili 0.5 Lipase 351 IMAGING: Computed tomography scan abdomen and pelvis there is a dilated segment of sigmoid colon in the anterior lower pelvis. Air is seen within the rectum. Questionable wall thickening at the rectosigmoid sigmoid junction could be correlated with direct visualization to exclude mucosal lesion as clinically warranted. Stable densely calcified left adnexal lesion further evaluation with MRI recommended. Constipation. Postsurgical changes involving the stomach. Subsegmental groundglass changes correlate for atelectasis versus early pneumonia ASSESSMENT: 1. Abdominal pain likely secondary to constipation 2. History of multiple abdominal surgeries 3. Leukocytosis 4. Acute kidney injury 5. History of abdominal adhesions requiring lysis of adhesions 6. History of diabetes mellitus 7. History of chronic constipation 8. History of hypothyroidism 9. History of hypertension PLAN: -Ordered lactulose and milk of magnesia for constipation -Patient can start clear liquid diet -Continue IV fluids -Continue supportive care Thank you for this consultation Physician Enrollment Manager note has been reviewed by physician. Signing provider agrees with the documented findings, assessment, and plan of care. Past Medical History Past Medical History: CVA/TIA, Diabetes Mellitus, Eye Disorder, Fibromyalgia, GERD/Reflux, Osteoarthritis (OA), Thyroid Disorder Additional Past Medical History / Comment(s): hx Pancreatitis, TIA's-slow speach and a little "processing things", insulin pump, "macular edema", Vertigo , Chronic Back Pain-bulging discs, Osteopenia, small hiatal hernia, hx kidney "issue" from motrin/tylenol use-resolved History of Any Multi-Drug Resistant Organisms: None Reported Past Surgical History: Appendectomy, Bariatric Surgery, Hysterectomy, Orthopedic Surgery Additional Past Surgical History / Comment(s): ESTEFANY FUNDOPLASTY. lysis of adheasions, gastric sleeve, Carpal tunnel bilateral, right oophorectomy, mult laparoscopy, pannicuilectomy, sara lens implants/cataracts Past Anesthesia/Blood Transfusion Reactions: Motion Sickness Additional Past Anesthesia/Blood Transfusion Reaction / Comm: vertigo Past Psychological History: Depression Smoking Status: Former smoker - Past Family History Father Family Medical History: Diabetes Mellitus Mother Family Medical History: No Reported History Medications and Allergies Home Medications Medication Instructions Recorded Confirmed Type Polyethylene Glycol 3350 [Miralax] 17 gm PO DAILY 01/07/18 03/05/21 History Aspirin [Adult Low Dose Aspirin EC] 81 mg PO DAILY 09/30/18 03/05/21 History Albuterol Inhaler [Ventolin Hfa 1 - 2 puff INHALATION RT-QID PRN 05/24/20 03/05/21 History Inhaler] Cholecalciferol [Vitamin D3 (25 25 mcg PO DAILY 05/24/20 03/05/21 History Mcg = 1000 Iu)] Hydrochlorothiazide 12.5 mg PO Q48H 05/24/20 03/05/21 History [hydroCHLOROthiazide] INSULIN LISPRO (humaLOG) [humaLOG] See Protocol SQ CONTINUOUS 05/24/20 03/05/21 History Lutein 40 mg PO DAILY 05/24/20 03/05/21 History Mv-Min/Folic/Vit K/Lut/[id number] 1 each PO DAILY 05/24/20 03/05/21 History [Alive Women's 50 Plus Tablet] Simvastatin [Zocor] 20 mg PO HS 05/24/20 03/05/21 History methocarbamoL [Robaxin] 500 mg PO Q6HR PRN 05/24/20 03/05/21 History Calcium Carb/Mag Ox/Zinc Sulf 1 tab PO DAILY 03/05/21 03/05/21 History [Eeh-Odl-Yrjo 334-134-5 mg Tab] Cider Vinegar [Apple Cider Vinegar] 300 mg PO DAILY 03/05/21 03/05/21 History Desvenlafaxine [Pristiq ER] 100 mg PO DAILY 03/05/21 03/05/21 History Ferrous Sulfate [Feosol] 325 mg PO DAILY 03/05/21 03/05/21 History Synthroid (Koffi) 50 mg PO DAILY 03/05/21 03/05/21 History oxyCODONE HCL [oxyCODONE HCL (IR)] 10 mg PO QID PRN 03/05/21 03/05/21 History Allergies Allergy/AdvReac Type Severity Reaction Status Date / Time latex Allergy Rash/Hives Verified 03/05/21 13:06 vitamins Allergy Rash/Hives Uncoded 03/05/21 13:06 Surgical - Exam Vital Signs Temp Pulse Resp BP Pulse Ox 98.4 F 118 H 20 137/74 97 03/05/21 08:42 03/05/21 08:42 03/05/21 08:42 03/05/21 08:42 03/05/21 08:42 Results - Labs 03/05/21 09:48 03/05/21 09:48 Abnormal Lab Results - Last 24 Hours (Table) 03/05/21 03/05/21 03/05/21 Range/Units 09:48 09:48 09:54 WBC 16.9 H (3.8-10.6) k/uL Neutrophils # 12.8 H (1.3-7.7) k/uL Sodium 136 L (137-145) mmol/L Carbon Dioxide 21 L (22-30) mmol/L BUN 18 H (7-17) mg/dL Creatinine 1.13 H (0.52-1.04) mg/dL AST 58 H (14-36) U/L Amylase 145 H (30-110) U/L Lipase 351 H (23-300) U/L Urine Appearance Cloudy H (Clear) Urine Protein Trace H (Negative) Urine Blood Trace H (Negative) Ur Leukocyte Esterase Trace H (Negative) Urine WBC 10 H (0-5) /hpf Ur Squamous Epith Cells 7 H (0-4) /hpf Urine Bacteria Many H (None) /hpf Hyaline Casts 22 H (0-2) /lpf Urine Mucus Rare H (None) /hpf Urine Yeast (Budding) Rare H (None) /hpf Diabetes panel 03/05/21 Range/Units 09:48 Sodium 136 L (137-145) mmol/L Potassium 3.5 (3.5-5.1) mmol/L Chloride 103 (98-107) mmol/L Carbon Dioxide 21 L (22-30) mmol/L BUN 18 H (7-17) mg/dL Creatinine 1.13 H (0.52-1.04) mg/dL Glucose 88 (74-99) mg/dL Calcium 8.7 (8.4-10.2) mg/dL AST 58 H (14-36) U/L ALT 31 (4-34) U/L Alkaline Phosphatase 57 (38-126) U/L Total Protein 6.9 (6.3-8.2) g/dL Albumin 3.9 (3.5-5.0) g/dL Calcium panel 03/05/21 Range/Units 09:48 Calcium 8.7 (8.4-10.2) mg/dL Albumin 3.9 (3.5-5.0) g/dL Pituitary panel 03/05/21 Range/Units 09:48 Sodium 136 L (137-145) mmol/L Potassium 3.5 (3.5-5.1) mmol/L Chloride 103 (98-107) mmol/L Carbon Dioxide 21 L (22-30) mmol/L BUN 18 H (7-17) mg/dL Creatinine 1.13 H (0.52-1.04) mg/dL Glucose 88 (74-99) mg/dL Calcium 8.7 (8.4-10.2) mg/dL Adrenal panel 03/05/21 Range/Units 09:48 Sodium 136 L (137-145) mmol/L Potassium 3.5 (3.5-5.1) mmol/L Chloride 103 (98-107) mmol/L Carbon Dioxide 21 L (22-30) mmol/L BUN 18 H (7-17) mg/dL Creatinine 1.13 H (0.52-1.04) mg/dL Glucose 88 (74-99) mg/dL Calcium 8.7 (8.4-10.2) mg/dL Total Bilirubin 0.5 (0.2-1.3) mg/dL AST 58 H (14-36) U/L ALT 31 (4-34) U/L Alkaline Phosphatase 57 (38-126) U/L Total Protein 6.9 (6.3-8.2) g/dL Albumin 3.9 (3.5-5.0) g/dL
[2021-03-05] MEDS ORDERED: ALBUTEROL HFA INHALER INHALATION PRN (18:11)
[2021-03-05] MEDS ORDERED: methocarbamoL 500 MG TAB PO PRN (18:11)
[2021-03-05] MEDS: HYDROmorphone 0.5 MG/0.5 ML SYRINGE IVP PRN (21:53)
--- NOTE | 2021-03-05 22:20 | XR ---
EXAMINATION TYPE: XR chest 1V portable DATE OF EXAM: 03/05/2021 CLINICAL HISTORY: Possible pneumonia. Cough. TECHNIQUE: Portable frontal view of the chest. COMPARISON: 01/25/2018 FINDINGS: Mildly low lung volumes. The cardiomediastinal silhouette is within normal limits for size . Pulmonary vasculature is normal. There is no focal air space opacity. No pleural effusion. No pneu mothorax seen. No acute displaced osseous fracture. IMPRESSION: No acute cardiopulmonary process.
[2021-03-06 07:20] LABS: Glucose,Whole Blood 63 mg/dL (75-99)
--- NOTE | 2021-03-06 08:31 | P.PN ---
Subjective Progress Note Date: 03/06/21 CHIEF COMPLAINT: Acute hydrops cholecystitis HISTORY OF PRESENT ILLNESS: The patient is a 56-year-old female admitted with severe lower abdominal pain. She has personal history of chronic constipation. Yesterday, she was given laxatives. She is passing moderate flatus. Lower abdominal pain has improved. She's had at least 2 bowel movements in the last 24 hours. She is tolerating liquid diet. ROS: No reports of nausea and vomiting. No fevers or chills. No new chest pain. No productive sputum PHYSICAL EXAM: VITAL SIGNS: Reviewed CONSTITUTIONAL: Well developed and in no acute distress. EYES: Conjuctivae without sclera icterus. Extraocular movements grossly intact. HEAD, EARS, NOSE, THROAT: Moist buccal mucosa. Head is atraumatic, normocephalic. Hears conversational speech. No nasal drainage. NECK: No gross thyroidomegaly. No jugular venous distention. RESPIRATORY: Non-labored respirations and equal bilateral excursions. CARDIOVASCULAR: Palpable 2+ radial pulses. Regular rate. Regular rhythm. ABDOMEN: No peritonitis. Protuberant. Mild tenderness lower abdomen. MUSCULOSKELETAL: No gross deformity of the lower extremities noted. No clubbing. No cyanosis. SKIN: Good skin turgor. Well perfused. NEUROLOGIC: Cranial nerves II through XII grossly intact. No focal or lateralizing signs. PSYCH: Appropriate affect. Alert and oriented to person, place and time. CLINICAL LABS: Reviewed. WBC elevated at 16.9. Current labs pending. ASSESSMENT: 1. Lower abdominal pain with history of chronic constipation 2. Sigmoid volvulus PLAN: 1. May advance diet as tolerated his abdominal pain has improved. 2. Continue outpatient bowel regimen including lactulose 30 mg daily and milk of magnesia daily Objective - Vital Signs Vital signs: Vital Signs Temp 97.5 F L 03/06/21 07:00 Pulse 64 03/06/21 07:00 Resp 18 03/06/21 07:00 BP 103/55 03/06/21 07:00 Pulse Ox 97 03/06/21 07:00 Intake & Output 03/05/21 03/06/21 03/06/21 18:59 06:59 18:59 Weight 74.843 kg Other: Voiding Method Toilet # Voids 2 - Labs CBC & Chem 7: 03/05/21 09:48 03/05/21 09:48 Labs: Abnormal Lab Results - Last 24 Hours (Table) 03/05/21 03/05/21 03/05/21 Range/Units 09:48 09:48 09:54 WBC 16.9 H (3.8-10.6) k/uL Neutrophils # 12.8 H (1.3-7.7) k/uL Sodium 136 L (137-145) mmol/L Carbon Dioxide 21 L (22-30) mmol/L BUN 18 H (7-17) mg/dL Creatinine 1.13 H (0.52-1.04) mg/dL POC Glucose (mg/dL) (75-99) mg/dL AST 58 H (14-36) U/L Amylase 145 H (30-110) U/L Lipase 351 H (23-300) U/L Urine Appearance Cloudy H (Clear) Urine Protein Trace H (Negative) Urine Blood Trace H (Negative) Ur Leukocyte Esterase Trace H (Negative) Urine WBC 10 H (0-5) /hpf Ur Squamous Epith Cells 7 H (0-4) /hpf Urine Bacteria Many H (None) /hpf Hyaline Casts 22 H (0-2) /lpf Urine Mucus Rare H (None) /hpf Urine Yeast (Budding) Rare H (None) /hpf 03/06/21 Range/Units 07:18 WBC (3.8-10.6) k/uL Neutrophils # (1.3-7.7) k/uL Sodium (137-145) mmol/L Carbon Dioxide (22-30) mmol/L BUN (7-17) mg/dL Creatinine (0.52-1.04) mg/dL POC Glucose (mg/dL) 63 L (75-99) mg/dL AST (14-36) U/L Amylase (30-110) U/L Lipase (23-300) U/L Urine Appearance (Clear) Urine Protein (Negative) Urine Blood (Negative) Ur Leukocyte Esterase (Negative) Urine WBC (0-5) /hpf Ur Squamous Epith Cells (0-4) /hpf Urine Bacteria (None) /hpf Hyaline Casts (0-2) /lpf Urine Mucus (None) /hpf Urine Yeast (Budding) (None) /hpf Assessment and Plan (1) Sigmoid volvulus Current Visit: Yes Status: Acute Code(s): K56.2 - VOLVULUS SNOMED Code(s): 598495673 (2) Chronic constipation Current Visit: Yes Status: Acute Code(s): K59.09 - OTHER CONSTIPATION SNOMED Code(s): 332936420 (3) History of sleeve gastrectomy Current Visit: No Status: Acute Code(s): Z90.3 - ACQUIRED ABSENCE OF STOMACH [PART OF] SNOMED Code(s): 450434521690721 (4) Left lower quadrant abdominal pain Current Visit: No Status: Acute Code(s): R10.32 - LEFT LOWER QUADRANT PAIN SNOMED Code(s): 203056653
[2021-03-06] MEDS: NON FORMULARY DRUG (Calcium Carb/Mag Ox/Zinc Sulf [Cal-Mag-Zinc 334-134-5 Mg Tab] 1 EACH T PO SCH (08:35)
[2021-03-06] MEDS: SYNTHROID PO SCH (08:35)
[2021-03-06] MEDS: ASPIRIN 81 MG PO SCH (09:02)
[2021-03-06] MEDS: MULTIVITAMINS, THERA 1 EACH TAB PO SCH (09:02)
[2021-03-06] MEDS: CHOLECALCIFEROL 25 MCG (1000 IU) TABLET PO SCH (09:02)
[2021-03-06] MEDS: ENOXAPARIN 40 MG/0.4 ML SYRINGE SQ SCH (09:02)
[2021-03-06] MEDS: DESVENLAFAXINE SUCCINATE 50 MG TAB.ER.24H PO SCH (09:03)
--- NOTE | 2021-03-06 09:07 | P.HPIM ---
History of Present Illness H&P Date: 03/05/21 Anabella Noriega is a 56 year old female who presented to [facility] emergency room with a chief complaint of abdominal pain She was evaluated in the emergency room vital examination on presentation revealed a temperature of 98.4 pulse 118 respiration 20 blood pressure 137/74 pulse ox 97% on room air Laboratory data revealed a white blood count of 16.9 hemoglobin 15.8 platelet count 373 sodium 136 potassium 3.5 chloride 103 CO2 21 BUN 18 creatinine 1.13 AST 58 amylase 145 lipase 351 urine analysis revealed evidence of urinary tract infection Testing in the emergency room revealed computed tomography scan of the abdomen and pelvis revealed evidence of dilated segment of sigmoid colon and subsegmental ground glass changes in the lungs which may represent atelectasis versus early pneumonia. Patient was admitted to medical floor for further evaluation and treatment Past medical history is significant for history of insulin-dependent diabetes mellitus with history of insulin pump placement history of CVA in the past history of osteoarthritis history of gastric sleeve placement, history of knees and fundoplasty, history of adhesions, previous multiple admissions for abdom inal pain. History of pancreatitis Past Medical History Past Medical History: CVA/TIA, Diabetes Mellitus, Eye Disorder, Fibromyalgia, GERD/Reflux, Osteoarthritis (OA), Thyroid Disorder Additional Past Medical History / Comment(s): hx Pancreatitis, TIA's-slow speach and a little "processing things", insulin pump, "macular edema", Vertigo , Chronic Back Pain-bulging discs, Osteopenia, small hiatal hernia, hx kidney "issue" from motrin/tylenol use-resolved History of Any Multi-Drug Resistant Organisms: None Reported Past Surgical History: Appendectomy, Bariatric Surgery, Hysterectomy, Orthopedic Surgery Additional Past Surgical History / Comment(s): ESTEFANY FUNDOPLASTY. lysis of adheasions, gastric sleeve, Carpal tunnel bilateral, right oophorectomy, mult laparoscopy, pannicuilectomy, sara lens implants/cataracts Past Anesthesia/Blood Transfusion Reactions: Motion Sickness Additional Past Anesthesia/Blood Transfusion Reaction / Comment(s): vertigo Past Psychological History: Depression Smoking Status: Former smoker - Past Family History Father Family Medical History: Diabetes Mellitus Mother Family Medical History: No Reported History Medications and Allergies Home Medications Medication Instructions Recorded Confirmed Type Polyethylene Glycol 3350 [Miralax] 17 gm PO DAILY 01/07/18 03/05/21 History Aspirin [Adult Low Dose Aspirin EC] 81 mg PO DAILY 09/30/18 03/05/21 History Albuterol Inhaler [Ventolin Hfa 1 - 2 puff INHALATION RT-QID PRN 05/24/20 03/05/21 History Inhaler] Cholecalciferol [Vitamin D3 (25 25 mcg PO DAILY 05/24/20 03/05/21 History Mcg = 1000 Iu)] Hydrochlorothiazide 12.5 mg PO Q48H 05/24/20 03/05/21 History [hydroCHLOROthiazide] INSULIN LISPRO (humaLOG) [humaLOG] See Protocol SQ CONTINUOUS 05/24/20 03/05/21 History Lutein 40 mg PO DAILY 05/24/20 03/05/21 History Mv-Min/Folic/Vit K/Lut/Gfzc659 1 each PO DAILY 05/24/20 03/05/21 History [Alive Women's 50 Plus Tablet] Simvastatin [Zocor] 20 mg PO HS 05/24/20 03/05/21 History methocarbamoL [Robaxin] 500 mg PO Q6HR PRN 05/24/20 03/05/21 History Calcium Carb/Mag Ox/Zinc Sulf 1 tab PO DAILY 03/05/21 03/05/21 History [Noc-Fih-Iywy 334-134-5 mg Tab] Cider Vinegar [Apple Cider Vinegar] 300 mg PO DAILY 03/05/21 03/05/21 History Desvenlafaxine [Pristiq ER] 100 mg PO DAILY 03/05/21 03/05/21 History Ferrous Sulfate [Feosol] 325 mg PO DAILY 03/05/21 03/05/21 History Synthroid (Koffi) 50 mg PO DAILY 03/05/21 03/05/21 History oxyCODONE HCL [oxyCODONE HCL (IR)] 10 mg PO QID PRN 03/05/21 03/05/21 History Allergies Allergy/AdvReac Type Severity Reaction Status Date / Time latex Allergy Rash/Hives Verified 03/05/21 13:06 vitamins Allergy Rash/Hives Uncoded 03/05/21 13:06 Physical Exam Vitals: Vital Signs Temp Pulse Resp BP Pulse Ox 03/05/21 14:30 98.8 F 84 18 100/58 97 03/05/21 08:42 98.4 F 118 H 20 137/74 97 Intake and Output 03/05/21 03/05/21 03/05/21 06:59 14:59 22:59 Other: Weight 74.843 kg In general patient is alert and oriented x 3 in no distress HEENT head normocephalic and atraumatic Neck is supple no JVD no goiter no lymphadenopathy no carotid bruit Chest examination is clear to auscultation no crackles no wheezing Cardiac exam reveals regular heart sounds S1 and S2 no gallops no murmurs Abdomen is soft nontender no organomegaly with normal bowel sounds Extremity exam reveals no edema no cyanosis or clubbing Neurological examination reveals no gross focal deficits Results CBC & Chem 7: 03/05/21 09:48 03/05/21 09:48 Labs: Abnormal Lab Results - Last 24 Hours (Table) 03/05/21 03/05/21 03/05/21 Range/Units 09:48 09:48 09:54 WBC 16.9 H (3.8-10.6) k/uL Neutrophils # 12.8 H (1.3-7.7) k/uL Sodium 136 L (137-145) mmol/L Carbon Dioxide 21 L (22-30) mmol/L BUN 18 H (7-17) mg/dL Creatinine 1.13 H (0.52-1.04) mg/dL AST 58 H (14-36) U/L Amylase 145 H (30-110) U/L Lipase 351 H (23-300) U/L Urine Appearance Cloudy H (Clear) Urine Protein Trace H (Negative) Urine Blood Trace H (Negative) Ur Leukocyte Esterase Trace H (Negative) Urine WBC 10 H (0-5) /hpf Ur Squamous Epith Cells 7 H (0-4) /hpf Urine Bacteria Many H (None) /hpf Hyaline Casts 22 H (0-2) /lpf Urine Mucus Rare H (None) /hpf Urine Yeast (Budding) Rare H (None) /hpf Assessment and Plan Plan: Abdominal pain, could be related to adhesions, constipation, also need to rule out colitis in view of evidence of wall thickening of the sigmoid colon on computed tomography scan, also need to rule out acute pancreatitis in view of elevated amylase and lipase. Evidence of urinary tract infection, will obtain urine culture, start patient on IV Rocephin Mild elevation in amylase and lipase at this time will keep patient nothing by mouth monitor pancreatic enzymes Ground glass appearance of the chest on computed tomography scan of the abdomen which may represent atelectasis versus pneumonia, will check chest x-ray Underlying history of insulin-dependent diabetes mellitus. At this time patient will be admitted to medical floor She will be kept on clear liquid diet Will obtain urine culture Will obtain chest x-ray to rule out pneumonia Will repeat amylase and lipase in a.m. tomorrow Will start on IV Rocephin For DVT prophylaxis subcu Lovenox For GI prophylaxis Protonix Will follow closely
[2021-03-06] MEDS: HYDROmorphone 0.5 MG/0.5 ML SYRINGE IVP PRN ×4 (09:11→23:58)
[2021-03-06 10:50] LABS: Basophils # (A) 0.06 X 10*3/uL (0.00-0.10); Basophils % (A) 0.7 %; Eosinophils # (A) 0.34 X 10*3/uL (0.04-0.35); Eosinophils % (A) 3.8 %; HCT 38.1 % (37.2-46.3); HGB 12.7 g/dL (12.0-15.0); Lymphocytes # (A) 4.72 X 10*3/uL (0.90-5.00); Lymphocytes % (A) 53.2 %; MCH 30.5 pg (27.0-32.0); MCHC 33.3 g/dL (32.0-37.0); MCV 91.6 fL (80.0-97.0); Mean Platelet Volume 9.6 fL (9.5-12.2); Monocytes # (A) 0.68 X 10*3/uL (0.20-1.00); Monocytes % (A) 7.7 %; Neutrophils # (A) 3.05 X 10*3/uL (1.80-7.70); Neutrophils % (A) 34.4 %; Platelet Count 358 X 10*3/uL (140-440); RBC 4.16 X 10*6/uL (4.10-5.20); RDW 12.6 % (11.5-14.5); WBC 8.87 X 10*3/uL (4.50-10.00)
[2021-03-06 11:16] LABS: African American GFR (CKD) 96.9 (60.0-200.0); Albumin 3.7 g/dL (3.8-4.9); Albumin/Globulin Ratio 1.85 (1.60-3.17); BUN/Creat Ratio 15.13 Ratio (12.00-20.00); Blood Urea Nitrogen 12.1 mg/dL (9.0-27.0); Calcium 8.2 mg/dL (8.7-10.3); Non-African American GFR(CKD) 83.6 (60.0-200.0); Potassium 3.2 mmol/L (3.5-5.5); Total Bilirubin 0.3 mg/dL (0.30-1.20); Total Protein 5.7 g/dL (6.2-8.2)
[2021-03-06] MEDS ORDERED: Potassium Replacement Protocol 1 EACH MISC MISCELLANE PRN (11:42)
--- NOTE | 2021-03-06 11:47 | P.PN ---
Subjective Progress Note Date: 03/06/21 Anabella Noriega is a 56 year old female who presented to [facility] emergency room with a chief complaint of abdominal pain She was evaluated in the emergency room vital examination on presentation revealed a temperature of 98.4 pulse 118 respiration 20 blood pressure 137/74 pulse ox 97% on room air Laboratory data revealed a white blood count of 16.9 hemoglobin 15.8 platelet count 373 sodium 136 potassium 3.5 chloride 103 CO2 21 BUN 18 creatinine 1.13 AST 58 amylase 145 lipase 351 urine analysis revealed evidence of urinary tract infection Testing in the emergency room revealed computed tomography scan of the abdomen and pelvis revealed evidence of dilated segment of sigmoid colon and subsegmental ground glass changes in the lungs which may represent atelectasis versus early pneumonia. Patient was admitted to medical floor for further evaluation and treatment Past medical history is significant for history of insulin-dependent diabetes mellitus with history of insulin pump placement history of CVA in the past history of osteoarthritis history of gastric sleeve placement, history of knees and fundoplasty, history of adhesions, previous multiple admissions for abdominal pain. History of pancreatitis On 03/06/2021 patient reports improvement with her lower abdominal pain. Patient has had at least 2 bowel movements in the last 24 hours. Patient has been tolerating clear liquid diet. No episodes of nausea or vomiting. Repeat chest x-ray completed showing no acute cardiopulmonary process.. White blood cell improving 8.87. Creatinine 0.8 and bun 12.1. Amylase within normal limits at 57 lipase 20. At that time will advance diet and watch for the next 24 hours with possible DC home tomorrow. Patient denies chest pain. Patient denies nausea vomiting or diarrhea. Patient denies any urinary burning or frequency Objective - Vital Signs Vital signs: Vital Signs Temp 97.5 F L 03/06/21 07:00 Pulse 64 03/06/21 07:00 Resp 18 03/06/21 07:00 BP 103/55 03/06/21 07:00 Pulse Ox 97 03/06/21 07:00 Intake & Output 03/05/21 03/06/21 03/06/21 18:59 06:59 18:59 Weight 74.843 kg Other: Voiding Method Toilet # Voids 2 - Exam In general patient is alert and oriented x 3 in no distress HEENT head normocephalic and atraumatic Neck is supple no JVD no goiter no lymphadenopathy no carotid bruit Chest examination is clear to auscultation no crackles no wheezing Cardiac exam reveals regular heart sounds S1 and S2 no gallops no murmurs Abdomen is soft nontender no organomegaly with normal bowel sounds Extremity exam reveals no edema no cyanosis or clubbing Neurological examination reveals no gross focal deficits - Labs CBC & Chem 7: 03/06/21 07:29 03/06/21 07:29 Labs: Abnormal Lab Results - Last 24 Hours (Table) 03/06/21 03/06/21 Range/Units 07:18 07:29 Potassium 3.2 L (3.5-5.5) mmol/L Glucose 55 L (70-110) mg/dL POC Glucose (mg/dL) 63 L (75-99) mg/dL Calcium 8.2 L (8.7-10.3) mg/dL Total Protein 5.7 L (6.2-8.2) g/dL Albumin 3.7 L (3.8-4.9) g/dL Assessment and Plan Plan: Abdominal pain, could be related to adhesions, constipation, also need to rule out colitis in view of evidence of wall thickening of the sigmoid colon on computed tomography scan, also need to rule out acute pancreatitis in view of elevated amylase and lipase. Evidence of urinary tract infection, will obtain urine culture, start patient on IV Rocephin Mild elevation in amylase and lipase at this time will keep patient nothing by mouth monitor pancreatic enzymes Ground glass appearance of the chest on computed tomography scan of the abdomen which may represent atelectasis versus pneumonia, will check chest x-ray Underlying history of insulin-dependent diabetes mellitus. At this time patient will be admitted to medical floor Diet to be advanced to regular diet Will obtain urine culture Repeat chest x-ray negative Amylase and lipase within normal limits Will start on IV Rocephin For DVT prophylaxis subcu Lovenox For GI prophylaxis Protonix Will follow closely
[2021-03-06 12:09] LABS: Glucose,Whole Blood 110 mg/dL (75-99)
[2021-03-06] MEDS: POTASSIUM CHLORIDE ER 20 MEQ TAB.ER PO SCH ×2 (12:38→13:49)
[2021-03-06 16:55] LABS: Glucose,Whole Blood 143 mg/dL (75-99)
[2021-03-06 20:19] LABS: Glucose,Whole Blood 256 mg/dL (75-99)
[2021-03-07 07:34] LABS: Basophils # (A) 0.1 k/uL (0-0.2); Basophils % (A) 1 %; Eosinophils # (A) 0.4 k/uL (0-0.7); Eosinophils % (A) 5 %; HCT 35.5 % (34.0-46.0); Lymphocytes # (A) 3.6 k/uL (1.0-4.8); Lymphocytes % (A) 48 %; MCH 32.2 pg (25.0-35.0); MCHC 34.1 g/dL (31.0-37.0); MCV 94.7 fL (80.0-100.0); Mean Platelet Volume 7.1; Monocytes # (A) 0.3 k/uL (0-1.0); Monocytes % (A) 5 %; Neutrophils # (A) 2.9 k/uL (1.3-7.7); Neutrophils % (A) 39 %; Platelet Count 309 k/uL (150-450); RBC 3.75 m/uL (3.80-5.40); RDW 12.8 % (11.5-15.5); WBC 7.5 k/uL (3.8-10.6)
[2021-03-07 07:35] LABS: Glucose,Whole Blood 79 mg/dL (75-99)
[2021-03-07 07:37] LABS: HGB 12.1 gm/dL (11.4-16.0)
[2021-03-07] MEDS: SYNTHROID PO SCH (08:15)
[2021-03-07] MEDS: NON FORMULARY DRUG (Calcium Carb/Mag Ox/Zinc Sulf [Cal-Mag-Zinc 334-134-5 Mg Tab] 1 EACH T PO SCH (08:15)
[2021-03-07] MEDS: ASPIRIN 81 MG PO SCH (08:19)
[2021-03-07] MEDS: DESVENLAFAXINE SUCCINATE 50 MG TAB.ER.24H PO SCH (08:19)
[2021-03-07] MEDS: CHOLECALCIFEROL 25 MCG (1000 IU) TABLET PO SCH (08:19)
[2021-03-07] MEDS: ENOXAPARIN 40 MG/0.4 ML SYRINGE SQ SCH (08:19)
[2021-03-07] MEDS: MULTIVITAMINS, THERA 1 EACH TAB PO SCH (08:19)
[2021-03-07] MEDS: HYDROmorphone 0.5 MG/0.5 ML SYRINGE IVP PRN ×3 (08:26→22:38)
[2021-03-07 11:47] LABS: ALT 21 U/L (8-44); AST 23 U/L (13-35); African American GFR (CKD) 119.8 (60.0-200.0); Albumin/Globulin Ratio 1.88 (1.60-3.17); Alkaline Phosphatase 53 U/L (41-126); BUN/Creat Ratio 15.33 Ratio (12.00-20.00); Blood Urea Nitrogen 9.2 mg/dL (9.0-27.0); Calcium 7.4 mg/dL (8.7-10.3); Carbon Dioxide 23.4 mmol/L (21.6-31.8); Chloride 112 mmol/L (96-109); Globulin 1.6 g/dL (1.6-3.3); Glucose 77 mg/dL (70-110); Non-African American GFR(CKD) 103.3 (60.0-200.0); Potassium 3.2 mmol/L (3.5-5.5); Sodium 143 mmol/L (135-145); Total Bilirubin <0.20 mg/dL (0.30-1.20); Total Protein 4.6 g/dL (6.2-8.2)
[2021-03-07 12:01] LABS: Glucose,Whole Blood 138 mg/dL (75-99)
[2021-03-07] MEDS ORDERED: POTASSIUM CHLORIDE ER 20 MEQ TAB.ER PO STA (12:20)
--- NOTE | 2021-03-07 12:24 | P.PN ---
Subjective Progress Note Date: 03/07/21 CHIEF COMPLAINT: Abdominal pain HISTORY OF PRESENT ILLNESS: The patient is a 56-year-old female admitted with severe lower abdominal pain. She has personal history of chronic constipation. Patient does report having bowel movements and flatus. She did have one episode of vomiting yesterday after she started solid foods. This morning patient did have complaints of nausea and lower abdominal pain. She reports her symptoms are worse after eating solid foods. WBC 7.5 Hgb 12.1 sodium 143 potassium 3.2 PHYSICAL EXAM: VITAL SIGNS: Reviewed GENERAL: Well-developed in no acute distress. HEENT: No sclera icterus. Extraocular movements grossly intact. Moist buccal mucosa. Head is atraumatic, normocephalic. Hears conversational speech. No nasal drainage. NECK: Supple without lymphadenopathy. CHEST: Non-labored respirations and equal bilateral excursions. CARDIOVASCULAR: Palpable 2+ radial pulses. ABDOMEN: Soft. Nondistended. Lower abdominal tenderness with palpation more so on the left MUSCULOSKELETAL: No clubbing or cyanosis. NEUROLOGIC: No focal or lateralizing signs. Cranial nerves II through XII grossly intact. PSYCH: Appropriate affect. Alert and oriented to person, place and time. SKIN: Well perfused. Good skin turgor. ASSESSMENT: 1. Lower abdominal pain with history of chronic constipation 2. Sigmoid volvulus 3. Hypokalemia PLAN: -Replace potassium -Check magnesium level -Continue bowel regimen including lactulose 30 g daily and milk magnesium daily -Check abdominal x-ray -Downgrade diet to full liquids Physician Telephone Installer note has been reviewed by physician. Signing provider agrees with the documented findings, assessment, and plan of care. Objective - Vital Signs Vital signs: Vital Signs Temp 98 F 03/07/21 07:00 Pulse 65 03/07/21 07:00 Resp 18 03/07/21 07:00 BP 100/60 03/07/21 07:00 Pulse Ox 97 03/07/21 07:00 Intake & Output 03/06/21 03/07/21 03/07/21 18:59 06:59 18:59 Intake Total 500 Balance 500 Intake: Intake, IV Titration 500 Amount Sodium Chloride 0.9% 1, 450 000 ml @ 75 mls/hr IV . [id number] ONE Rx#:[id number] cefTRIAXone 1 gm In 50 Sodium Chloride 0.9% 50 ml @ 100 mls/hr IVPB Q24HR [facility] Rx#:[id number] Other: Voiding Method Toilet Toilet # Voids 2 # Bowel Movements 1 - Labs CBC & Chem 7: 03/07/21 07:18 03/07/21 07:18 Labs: Abnormal Lab Results - Last 24 Hours (Table) 03/06/21 03/06/21 03/07/21 Range/Units 16:54 20:17 07:18 RBC 3.75 L (3.80-5.40) m/uL Potassium (3.5-5.5) mmol/L Chloride (96-109) mmol/L POC Glucose (mg/dL) 143 H 256 H (75-99) mg/dL Calcium (8.7-10.3) mg/dL Total Bilirubin (0.30-1.20) mg/dL Total Protein (6.2-8.2) g/dL Albumin (3.8-4.9) g/dL 03/07/21 03/07/21 Range/Units 07:18 11:59 RBC (3.80-5.40) m/uL Potassium 3.2 L (3.5-5.5) mmol/L Chloride 112 H (96-109) mmol/L POC Glucose (mg/dL) 138 H (75-99) mg/dL Calcium 7.4 L (8.7-10.3) mg/dL Total Bilirubin <0.20 L (0.30-1.20) mg/dL Total Protein 4.6 L (6.2-8.2) g/dL Albumin 3.0 L (3.8-4.9) g/dL Microbiology - Last 24 Hours (Table) 03/06/21 11:00 Urine Culture - Preliminary Urine,Clean Catch
[2021-03-07] MEDS: LACTULOSE 20 GM/30 ML CUP PO SCH (12:58)
[2021-03-07] MEDS: MAGNESIUM HYDROXIDE 2,400 MG/10 ML CUP PO SCH (15:36)
--- NOTE | 2021-03-07 16:01 | XR ---
EXAMINATION TYPE: XR abdomen 2V DATE OF EXAM: 03/07/2021 COMPARISON: 03/05/2021 HISTORY: Pain TECHNIQUE: One view abdominal series FINDINGS: The osseous structures are intact. The bowel gas pattern is nonspecific. Extensive retained fecal de bris. Radiodense structure in the pelvis is nonspecific. Calcifications likely vascular. Arthropathy of the hips. IMPRESSION: 1. Nonspecific abdomen. Correlate for constipation. 2. indeterminate hyperdensity in the pelvis may represent residual contrast follow-up x-ray recommend ed.
[2021-03-07 16:58] LABS: Glucose,Whole Blood 140 mg/dL (75-99)
--- NOTE | 2021-03-07 19:00 | P.PN ---
Subjective Progress Note Date: 03/07/21 Anabella Noriega is a 56 year old female who presented to [facility] emergency room with a chief complaint of abdominal pain She was evaluated in the emergency room vital examination on presentation revealed a temperature of 98.4 pulse 118 respiration 20 blood pressure 137/74 pulse ox 97% on room air Laboratory data revealed a white blood count of 16.9 hemoglobin 15.8 platelet count 373 sodium 136 potassium 3.5 chloride 103 CO2 21 BUN 18 creatinine 1.13 AST 58 amylase 145 lipase 351 urine analysis revealed evidence of urinary tract infection Testing in the emergency room revealed computed tomography scan of the abdomen and pelvis revealed evidence of dilated segment of sigmoid colon and subsegmental ground glass changes in the lungs which may represent atelectasis versus early pneumonia. Patient was admitted to medical floor for further evaluation and treatment Past medical history is significant for history of insulin-dependent diabetes mellitus with history of insulin pump placement history of CVA in the past history of osteoarthritis history of gastric sleeve placement, history of knees and fundoplasty, history of adhesions, previous multiple admissions for abdominal pain. History of pancreatitis On 03/06/2021 patient reports improvement with her lower abdominal pain. Patient has had at least 2 bowel movements in the last 24 hours. Patient has been tolerating clear liquid diet. No episodes of nausea or vomiting. Repeat chest x-ray completed showing no acute cardiopulmonary process.. White blood cell improving 8.87. Creatinine 0.8 and bun 12.1. Amylase within normal limits at 57 lipase 20. At that time will advance diet and watch for the next 24 hours with possible DC home tomorrow. Patient denies chest pain. Patient denies nausea vomiting or diarrhea. Patient denies any urinary burning or frequency On 03/07/2021 patient was seen and examined on the medical floor she is alert and oriented 3 in no apparent distress she is still complaining of abdominal pain, she had a repeat x-ray of the abdomen today which revealed evidence of extensive retained fecal debris, diet was downgraded by surgery to full liquid diet, patient is maintained on lactulose, milk of magnesia, and Colace, otherwise patient denies any complaints there is no fever or chills no headache or dizziness no chest pain no shortness of breath no cough no nausea or vomiting and no urinary symptoms Objective - Vital Signs Vital signs: Vital Signs Temp 97.9 F 03/07/21 14:16 Pulse 74 03/07/21 14:16 Resp 20 03/07/21 14:16 BP 104/66 03/07/21 14:16 Pulse Ox 97 03/07/21 14:16 Intake & Output 03/06/21 03/07/21 03/07/21 18:59 06:59 18:59 Intake Total 500 100 Balance 500 100 Intake: Intake, IV Titration 500 100 Amount Sodium Chloride 0.9% 1, 450 000 ml @ 75 mls/hr IV . [id number] [facility] Rx#:[id number] cefTRIAXone 1 gm In 50 100 Sodium Chloride 0.9% 50 ml @ 100 mls/hr IVPB Q24HR [facility] Rx#:[id number] Other: Voiding Method Toilet Toilet # Voids 2 # Bowel Movements 1 - Exam In general patient is alert and oriented x 3 in no distress HEENT head normocephalic and atraumatic Neck is supple no JVD no goiter no lymphadenopathy no carotid bruit Chest examination is clear to auscultation no crackles no wheezing Cardiac exam reveals regular heart sounds S1 and S2 no gallops no murmurs Abdomen is soft nontender no organomegaly with normal bowel sounds Extremity exam reveals no edema no cyanosis or clubbing Neurological examination reveals no gross focal deficits - Labs CBC & Chem 7: 03/07/21 07:18 03/07/21 07:18 Labs: Abnormal Lab Results - Last 24 Hours (Table) 03/06/21 03/07/21 03/07/21 Range/Units 20:17 07:18 07:18 RBC 3.75 L (3.80-5.40) m/uL Potassium 3.2 L (3.5-5.5) mmol/L Chloride 112 H (96-109) mmol/L POC Glucose (mg/dL) 256 H (75-99) mg/dL Calcium 7.4 L (8.7-10.3) mg/dL Total Bilirubin <0.20 L (0.30-1.20) mg/dL Total Protein 4.6 L (6.2-8.2) g/dL Albumin 3.0 L (3.8-4.9) g/dL 03/07/21 03/07/21 Range/Units 11:59 16:56 RBC (3.80-5.40) m/uL Potassium (3.5-5.5) mmol/L Chloride (96-109) mmol/L POC Glucose (mg/dL) 138 H 140 H (75-99) mg/dL Calcium (8.7-10.3) mg/dL Total Bilirubin (0.30-1.20) mg/dL Total Protein (6.2-8.2) g/dL Albumin (3.8-4.9) g/dL Microbiology - Last 24 Hours (Table) 03/06/21 11:00 Urine Culture - Preliminary Urine,Clean Catch Assessment and Plan Plan: Abdominal pain, could be related to adhesions, constipation, also need to rule out colitis in view of evidence of wall thickening of the sigmoid colon on computed tomography scan, also need to rule out acute pancreatitis in view of elevated amylase and lipase. Repeat amylase and lipase were normal, however patient has significant ileus with evidence of retained stools degrees on x-ray despite extensive bowel management. Evidence of urinary tract infection, will obtain urine culture, start patient on IV Rocephin Mild elevation in amylase and lipase at this time will keep patient nothing by mouth monitor pancreatic enzymes Ground glass appearance of the chest on computed tomography scan of the abdomen which may represent atelectasis versus pneumonia, will check chest x-ray Underlying history of insulin-dependent diabetes mellitus. At this time patient will be admitted to medical floor Diet to be advanced to regular diet Will obtain urine culture Repeat chest x-ray negative Amylase and lipase within normal limits Will start on IV Rocephin For DVT prophylaxis subcu Lovenox For GI prophylaxis Protonix Will follow closely
[2021-03-07] MEDS: DOCUSATE 100 MG CAP PO SCH (19:36)
[2021-03-07 20:30] LABS: Glucose,Whole Blood 158 mg/dL (75-99)
[2021-03-08] MEDS: SYNTHROID PO SCH (06:06)
[2021-03-08 06:39] LABS: ALT 21 U/L (4-34); AST 34 U/L (14-36); African American GFR (CKD) >90 (>60 ml/min/1.73 sqM); Albumin 2.6 g/dL (3.5-5.0); Alkaline Phosphatase 34 U/L (38-126); Anion Gap 2 mmol/L; Blood Urea Nitrogen 6 mg/dL (7-17); Calcium 7.8 mg/dL (8.4-10.2); Carbon Dioxide 23 mmol/L (22-30); Chloride 115 mmol/L (98-107); Globulin 2.6 g/dL; Glucose 74 mg/dL (74-99); Non-African American GFR(CKD) >90 (>60 ml/min/1.73 sqM); Potassium 4.2 mmol/L (3.5-5.1); Sodium 140 mmol/L (137-145); Total Bilirubin 0.4 mg/dL (0.2-1.3); Total Protein 5.2 g/dL (6.3-8.2)
[2021-03-08 07:53] VITALS: BP 121/69; PULSE 58; RESP 17; TEMP 98
[2021-03-08 08:10] LABS: Glucose,Whole Blood 93 mg/dL (75-99)
[2021-03-08] MEDS: CHOLECALCIFEROL 25 MCG (1000 IU) TABLET PO SCH (08:34)
[2021-03-08] MEDS: DESVENLAFAXINE SUCCINATE 50 MG TAB.ER.24H PO SCH (08:34)
[2021-03-08] MEDS: DOCUSATE 100 MG CAP PO SCH (08:35)
[2021-03-08] MEDS: ENOXAPARIN 40 MG/0.4 ML SYRINGE SQ SCH (08:35)
[2021-03-08] MEDS: ASPIRIN 81 MG PO SCH (08:35)
[2021-03-08] MEDS: LACTULOSE 20 GM/30 ML CUP PO SCH (08:36)
[2021-03-08] MEDS: MAGNESIUM HYDROXIDE 2,400 MG/10 ML CUP PO SCH (08:36)
[2021-03-08] MEDS: MULTIVITAMINS, THERA 1 EACH TAB PO SCH (08:36)
[2021-03-08] MEDS: HYDROmorphone 0.5 MG/0.5 ML SYRINGE IVP PRN ×2 (08:40→15:21)
--- NOTE | 2021-03-08 09:56 | P.PN ---
Subjective Progress Note Date: 03/08/21 Anabella Noriega is a 56 year old female who presented to [facility] emergency room with a chief complaint of abdominal pain She was evaluated in the emergency room vital examination on presentation revealed a temperature of 98.4 pulse 118 respiration 20 blood pressure 137/74 pulse ox 97% on room air Laboratory data revealed a white blood count of 16.9 hemoglobin 15.8 platelet count 373 sodium 136 potassium 3.5 chloride 103 CO2 21 BUN 18 creatinine 1.13 AST 58 amylase 145 lipase 351 urine analysis revealed evidence of urinary tract infection Testing in the emergency room revealed computed tomography scan of the abdomen and pelvis revealed evidence of dilated segment of sigmoid colon and subsegmental ground glass changes in the lungs which may represent atelectasis versus early pneumonia. Patient was admitted to medical floor for further evaluation and treatment Past medical history is significant for history of insulin-dependent diabetes mellitus with history of insulin pump placement history of CVA in the past history of osteoarthritis history of gastric sleeve placement, history of knees and fundoplasty, history of adhesions, previous multiple admissions for abdominal pain. History of pancreatitis On 03/06/2021 patient reports improvement with her lower abdominal pain. Patient has had at least 2 bowel movements in the last 24 hours. Patient has been tolerating clear liquid diet. No episodes of nausea or vomiting. Repeat chest x-ray completed showing no acute cardiopulmonary process.. White blood cell improving 8.87. Creatinine 0.8 and bun 12.1. Amylase within normal limits at 57 lipase 20. At that time will advance diet and watch for the next 24 hours with possible DC home tomorrow. Patient denies chest pain. Patient denies nausea vomiting or diarrhea. Patient denies any urinary burning or frequency On 03/07/2021 patient was seen and examined on the medical floor she is alert and oriented 3 in no apparent distress she is still complaining of abdominal pain, she had a repeat x-ray of the abdomen today which revealed evidence of extensive retained fecal debris, diet was downgraded by surgery to full liquid diet, patient is maintained on lactulose, milk of magnesia, and Colace, otherwise patient denies any complaints there is no fever or chills no headache or dizziness no chest pain no shortness of breath no cough no nausea or vomiting and no urinary symptoms 03/08/2021 patient's alert and oriented 3. Patient reports that she has had multiple bowel movements since yesterday. Attempting the breakfast right now. Patient reports some improvement with abdominal pain. Will assess patient's ability to the breakfast and lunch prior to discharge. Patient denies chest pain or shortness of breath. Patient denies nausea vomiting or diarrhea. Patient denies any urinary burning or frequency Objective - Vital Signs Vital signs: Vital Signs Temp 98 F 03/08/21 07:37 Pulse 58 L 03/08/21 07:37 Resp 17 03/08/21 07:37 BP 121/69 03/08/21 07:37 Pulse Ox 97 03/08/21 07:37 Intake & Output 03/07/21 03/08/21 03/08/21 18:59 06:59 18:59 Intake Total 100 180 Balance 100 180 Intake: Intake, IV Titration 100 Amount cefTRIAXone 1 gm In 100 Sodium Chloride 0.9% 50 ml @ 100 mls/hr IVPB Q24HR [facility] Rx#:[id number] Oral 180 Other: Voiding Method Toilet # Voids 2 - Exam In general patient is alert and oriented x 3 in no distress HEENT head normocephalic and atraumatic Neck is supple no JVD no goiter no lymphadenopathy no carotid bruit Chest examination is clear to auscultation no crackles no wheezing Cardiac exam reveals regular heart sounds S1 and S2 no gallops no murmurs Abdomen is soft nontender no organomegaly with normal bowel sounds Extremity exam reveals no edema no cyanosis or clubbing Neurological examination reveals no gross focal deficits - Labs CBC & Chem 7: 03/07/21 07:18 03/08/21 05:46 Labs: Abnormal Lab Results - Last 24 Hours (Table) 03/07/21 03/07/21 03/07/21 Range/Units 07:18 11:59 16:56 Potassium 3.2 L (3.5-5.5) mmol/L Chloride 112 H (96-109) mmol/L BUN (7-17) mg/dL POC Glucose (mg/dL) 138 H 140 H (75-99) mg/dL Calcium 7.4 L (8.7-10.3) mg/dL Total Bilirubin <0.20 L (0.30-1.20) mg/dL Alkaline Phosphatase (38-126) U/L Total Protein 4.6 L (6.2-8.2) g/dL Albumin 3.0 L (3.8-4.9) g/dL 03/07/21 03/08/21 Range/Units 20:29 05:46 Potassium (3.5-5.5) mmol/L Chloride 115 H (96-109) mmol/L BUN 6 L (7-17) mg/dL POC Glucose (mg/dL) 158 H (75-99) mg/dL Calcium 7.8 L (8.7-10.3) mg/dL Total Bilirubin (0.30-1.20) mg/dL Alkaline Phosphatase 34 L (38-126) U/L Total Protein 5.2 L (6.2-8.2) g/dL Albumin 2.6 L (3.8-4.9) g/dL Microbiology - Last 24 Hours (Table) 03/06/21 11:00 Urine Culture - Final Urine,Clean Catch Assessment and Plan Plan: Abdominal pain, could be related to adhesions, constipation, also need to rule out colitis in view of evidence of wall thickening of the sigmoid colon on computed tomography scan, also need to rule out acute pancreatitis in view of elevated amylase and lipase. Repeat amylase and lipase were normal, however patient has significant ileus with evidence of retained stools degrees on x-ray despite extensive bowel management. Evidence of urinary tract infection, will obtain urine culture, start patient on IV Rocephin Mild elevation in amylase and lipase at this time will keep patient nothing by mouth monitor pancreatic enzymes Ground glass appearance of the chest on computed tomography scan of the abdomen which may represent atelectasis versus pneumonia, repeat chest x-ray negative Underlying history of insulin-dependent diabetes mellitus. At this time patient will be admitted to medical floor full liquid diet Will obtain urine culture Repeat chest x-ray negative Amylase and lipase within normal limits Will start on IV Rocephin For DVT prophylaxis subcu Lovenox For GI prophylaxis Protonix Will follow closely
[2021-03-08 10:28] LABS: Glucose,Whole Blood 133 mg/dL (75-99)
[2021-03-08 10:59] LABS: Basophils # (A) 0.08 X 10*3/uL (0.00-0.10); Basophils % (A) 0.9 %; Eosinophils # (A) 0.46 X 10*3/uL (0.04-0.35); Eosinophils % (A) 5.5 %; HCT 34.6 % (37.2-46.3); HGB 10.9 g/dL (12.0-15.0); Lymphocytes # (A) 4.49 X 10*3/uL (0.90-5.00); Lymphocytes % (A) 53.3 %; MCH 30.8 pg (27.0-32.0); MCHC 31.5 g/dL (32.0-37.0); MCV 97.7 fL (80.0-97.0); Mean Platelet Volume 10.7 fL (9.5-12.2); Monocytes # (A) 0.49 X 10*3/uL (0.20-1.00); Monocytes % (A) 5.8 %; Neutrophils # (A) 2.88 X 10*3/uL (1.80-7.70); Neutrophils % (A) 34.1 %; Platelet Count 276 X 10*3/uL (140-440); RBC 3.54 X 10*6/uL (4.10-5.20); RDW 12.9 % (11.5-14.5); WBC 8.43 X 10*3/uL (4.50-10.00)
--- NOTE | 2021-03-08 13:14 | P.DS ---
Providers Date of admission: 03/05/21 12:35 Expected date of discharge: 03/08/21 Attending physician: Katherine Bower Consults: 03/05/21 12:35 Consult Physician Urgent Consulting Provider: Dionne Hanley Consult Reason/Comments: Abdominal pain Do you want consulting provider notified?: Yes Primary care physician: Siria Brar Hospital Course: Diagnosis on discharge: Abdominal pain, could be related to adhesions, constipation, also need to rule out colitis in view of evidence of wall thickening of the sigmoid colon on computed tomography scan, also need to rule out acute pancreatitis in view of elevated amylase and lipase. Repeat amylase and lipase were normal, however patient has significant ileus with evidence of retained stools degrees on x-ray despite extensive bowel management. Evidence of urinary tract infection, will obtain urine culture, start patient on IV Rocephin Mild elevation in amylase and lipase at this time will keep patient nothing by mouth monitor pancreatic enzymes Ground glass appearance of the chest on computed tomography scan of the abdomen which may represent atelectasis versus pneumonia, repeat chest x-ray negative Underlying history of insulin-dependent diabetes mellitus. Hospital course: Anabella Noriega is a 56 year old female who presented to [facility] emergency room with a chief complaint of abdominal pain She was evaluated in the emergency room vital examination on presentation revealed a temperature of 98.4 pulse 118 respiration 20 blood pressure 137/74 pulse ox 97% on room air Laboratory data revealed a white blood count of 16.9 hemoglobin 15.8 platelet count 373 sodium 136 potassium 3.5 chloride 103 CO2 21 BUN 18 creatinine 1.13 AST 58 amylase 145 lipase 351 urine analysis revealed evidence of urinary tract infection Testing in the emergency room revealed computed tomography scan of the abdomen and pelvis revealed evidence of dilated segment of sigmoid colon and subsegmental ground glass changes in the lungs which may represent atelectasis versus early pneumonia. Patient was admitted to medical floor for further evaluation and treatment Past medical history is significant for history of insulin-dependent diabetes mellitus with history of insulin pump placement history of CVA in the past history of osteoarthritis history of gastric sleeve placement, history of knees and fundoplasty, history of adhesions, previous multiple admissions for abdominal pain. History of pancreatitis On 03/06/2021 patient reports improvement with her lower abdominal pain. Patient has had at least 2 bowel movements in the last 24 hours. Patient has been tolerating clear liquid diet. No episodes of nausea or vomiting. Repeat chest x-ray completed showing no acute cardiopulmonary process.. White blood cell improving 8.87. Creatinine 0.8 and bun 12.1. Amylase within normal limits at 57 lipase 20. At that time will advance diet and watch for the next 24 hours with possible DC home tomorrow. Patient denies chest pain. Patient denies nausea vomiting or diarrhea. Patient denies any urinary burning or frequency On 03/07/2021 patient was seen and examined on the medical floor she is alert and oriented 3 in no apparent distress she is still complaining of abdominal pain, she had a repeat x-ray of the abdomen today which revealed evidence of extensive retained fecal debris, diet was downgraded by surgery to full liquid diet, patient is maintained on lactulose, milk of magnesia, and Colace, otherwise patient denies any complaints there is no fever or chills no headache or dizziness no chest pain no shortness of breath no cough no nausea or vomiting and no urinary symptoms 03/08/2021 patient's alert and oriented 3. Patient reports that she has had multiple bowel movements since yesterday. Attempting the breakfast right now. Patient reports some improvement with abdominal pain. Will assess patient's ability to the breakfast and lunch prior to discharge. Patient denies chest pain or shortness of breath. Patient denies nausea vomiting or diarrhea. Patient denies any urinary burning or frequency Plan - Discharge Summary Discharge Rx Participant: No New Discharge Prescriptions: New Magnesium Hydroxide [Milk of Magnesia Concentrate] 2,400 mg PO DAILY ml Lactulose [Cephulac] 30 gm PO DAILY ml Docusate [Colace] 100 mg PO BID cap Continue Polyethylene Glycol 3350 [Miralax] 17 gm PO DAILY Aspirin [Adult Low Dose Aspirin EC] 81 mg PO DAILY INSULIN LISPRO (humaLOG) [humaLOG] See Protocol SQ CONTINUOUS Albuterol Inhaler [Ventolin Hfa Inhaler] 1 - 2 puff INHALATION RT-QID PRN PRN Reason: Shortness Of Breath Hydrochlorothiazide [hydroCHLOROthiazide] 12.5 mg PO Q48H Simvastatin [Zocor] 20 mg PO HS methocarbamoL [Robaxin] 500 mg PO Q6HR PRN PRN Reason: Pain Cholecalciferol [Vitamin D3 (25 Mcg = 1000 Iu)] 25 mcg PO DAILY Lutein 40 mg PO DAILY Mv-Min/Folic/Vit K/Lut/Hsrt473 [Alive Women's 50 Plus Tablet] 1 each PO DAILY Synthroid (Koffi) 50 mg PO DAILY Ferrous Sulfate [Iron (65 MG Elemental)] 325 mg PO DAILY Calcium Carb/Mag Ox/Zinc Sulf [Ddj-Qhq-Vocc 334-134-5 mg Tab] 1 tab PO DAILY oxyCODONE HCL [oxyCODONE HCL (IR)] 10 mg PO QID PRN PRN Reason: Pain Cider Vinegar [Apple Cider Vinegar] 300 mg PO DAILY Desvenlafaxine [Pristiq ER] 100 mg PO DAILY Discharge Medication List Polyethylene Glycol 3350 [Miralax] 17 gm PO DAILY 01/07/18 [History] Aspirin [Adult Low Dose Aspirin EC] 81 mg PO DAILY 09/30/18 [History] Albuterol Inhaler [Ventolin Hfa Inhaler] 1 - 2 puff INHALATION RT-QID PRN 05/24/20 [History] Cholecalciferol [Vitamin D3 (25 Mcg = 1000 Iu)] 25 mcg PO DAILY 05/24/20 [History] Hydrochlorothiazide [hydroCHLOROthiazide] 12.5 mg PO Q48H 05/24/20 [History] INSULIN LISPRO (humaLOG) [humaLOG] See Protocol SQ CONTINUOUS 05/24/20 [History] Lutein 40 mg PO DAILY 05/24/20 [History] Mv-Min/Folic/Vit K/Lut/Oxlq717 [Alive Women's 50 Plus Tablet] 1 each PO DAILY 05/24/20 [History] Simvastatin [Zocor] 20 mg PO HS 05/24/20 [History] methocarbamoL [Robaxin] 500 mg PO Q6HR PRN 05/24/20 [History] Calcium Carb/Mag Ox/Zinc Sulf [Bmc-Hyf-Lbmh 334-134-5 mg Tab] 1 tab PO DAILY 03/05/21 [History] Cider Vinegar [Apple Cider Vinegar] 300 mg PO DAILY 03/05/21 [History] Desvenlafaxine [Pristiq ER] 100 mg PO DAILY 03/05/21 [History] Ferrous Sulfate [Iron (65 MG Elemental)] 325 mg PO DAILY 03/05/21 [History] Synthroid (Koffi) 50 mg PO DAILY 03/05/21 [History] oxyCODONE HCL [oxyCODONE HCL (IR)] 10 mg PO QID PRN 03/05/21 [History] Docusate [Colace] 100 mg PO BID cap 03/08/21 [Rx] Lactulose [Cephulac] 30 gm PO DAILY ml 03/08/21 [Rx] Magnesium Hydroxide [Milk of Magnesia Concentrate] 2,400 mg PO DAILY ml 03/08/21 [Rx] Follow up Appointment(s)/Referral(s): Siria Brar MD [Primary Care Provider] - 1-2 days
--- NOTE | 2021-03-08 13:40 | P.PN ---
Subjective Progress Note Date: 03/08/21 CHIEF COMPLAINT: Abdominal pain HISTORY OF PRESENT ILLNESS: The patient is a 56-year-old female admitted with severe lower abdominal pain. She has personal history of chronic constipation. Patient has had multiple bowel movements. Her abdominal pain has decreased. She is tolerating full liquid diet. She denies any nausea or vomiting. Afebrile. WBC is 8.43 Hgb 10.9 potassium 4.2 magnesium 2.2 abdominal x-ray nonspecific. Correlates constipation. Indeterminate hypodensity in the pelvis may represent residual contrast follow-up x-ray recommended PHYSICAL EXAM: VITAL SIGNS: Reviewed GENERAL: Well-developed in no acute distress. HEENT: No sclera icterus. Extraocular movements grossly intact. Moist buccal mucosa. Head is atraumatic, normocephalic. Hears conversational speech. No nasal drainage. NECK: Supple without lymphadenopathy. CHEST: Non-labored respirations and equal bilateral excursions. CARDIOVASCULAR: Palpable 2+ radial pulses. ABDOMEN: Soft. Nondistended. Lower abdominal tenderness with palpation more so on the left MUSCULOSKELETAL: No clubbing or cyanosis. NEUROLOGIC: No focal or lateralizing signs. Cranial nerves II through XII grossly intact. PSYCH: Appropriate affect. Alert and oriented to person, place and time. SKIN: Well perfused. Good skin turgor. ASSESSMENT: 1. Lower abdominal pain with history of chronic constipation 2. Sigmoid volvulus 3. Hypokalemia resolved PLAN: -Continue bowel regimen including lactulose 30 g daily and milk magnesium daily -Patient can be discharged from surgical standpoint -Recommend that patient follows up with her previous surgeon who had recently done her hemorrhoid surgery Physician Physician Underwriter note has been reviewed by physician. Signing provider agrees with the documented findings, assessment, and plan of care. Objective - Vital Signs Vital signs: Vital Signs Temp 98 F 03/08/21 07:37 Pulse 58 L 03/08/21 08:00 Resp 17 03/08/21 08:00 BP 121/69 03/08/21 07:37 Pulse Ox 97 03/08/21 07:37 Intake & Output 03/07/21 03/08/21 03/08/21 18:59 06:59 18:59 Intake Total 100 180 Balance 100 180 Intake: Intake, IV Titration 100 Amount cefTRIAXone 1 gm In 100 Sodium Chloride 0.9% 50 ml @ 100 mls/hr IVPB Q24HR JAYY Rx#:[id number] Oral 180 Other: Voiding Method Toilet Toilet # Voids 2 - Labs CBC & Chem 7: 03/08/21 05:46 03/08/21 05:46 Labs: Abnormal Lab Results - Last 24 Hours (Table) 03/07/21 03/07/21 03/08/21 Range/Units 16:56 20:29 05:46 RBC 3.54 L (4.10-5.20) X 10*6/uL Hgb 10.9 L (12.0-15.0) g/dL Hct 34.6 L (37.2-46.3) % MCV 97.7 H (80.0-97.0) fL MCHC 31.5 L (32.0-37.0) g/dL Absolute Nucleated RBC 0.02 H (0.00-0.00) X 10*3/uL Eosinophils # 0.46 H (0.04-0.35) X 10*3/uL NRBC/100 WBC Diff 0.2 H (0.0-0.0) /100 WBCS Chloride (98-107) mmol/L BUN (7-17) mg/dL POC Glucose (mg/dL) 140 H 158 H (75-99) mg/dL Calcium (8.4-10.2) mg/dL Alkaline Phosphatase (38-126) U/L Total Protein (6.3-8.2) g/dL Albumin (3.5-5.0) g/dL 03/08/21 03/08/21 Range/Units 05:46 10:27 RBC (4.10-5.20) X 10*6/uL Hgb (12.0-15.0) g/dL Hct (37.2-46.3) % MCV (80.0-97.0) fL MCHC (32.0-37.0) g/dL Absolute Nucleated RBC (0.00-0.00) X 10*3/uL Eosinophils # (0.04-0.35) X 10*3/uL NRBC/100 WBC Diff (0.0-0.0) /100 WBCS Chloride 115 H (98-107) mmol/L BUN 6 L (7-17) mg/dL POC Glucose (mg/dL) 133 H (75-99) mg/dL Calcium 7.8 L (8.4-10.2) mg/dL Alkaline Phosphatase 34 L (38-126) U/L Total Protein 5.2 L (6.3-8.2) g/dL Albumin 2.6 L (3.5-5.0) g/dL Microbiology - Last 24 Hours (Table) 03/06/21 11:00 Urine Culture - Final Urine,Clean Catch
[2021-03-08] MEDS: NON FORMULARY DRUG (Calcium Carb/Mag Ox/Zinc Sulf [Cal-Mag-Zinc 334-134-5 Mg Tab] 1 EACH T PO SCH (15:26)
== END 2021-03-08 15:35 | disposition home or self-care (01) ==
LOC: EC 08:34 → 6NMEDSUR 12:35
PROVIDERS: ADMIT Internal Medicine; ATTEND Internal Medicine
DX: R10.30 Lower abdominal pain, unspecified (principal); N39.0 Urinary tract infection, site not specified; N17.9 Acute kidney failure, unspecified; E87.6 Hypokalemia; G89.29 Other chronic pain; K59.09 Other constipation; K81.0 Acute cholecystitis; K82.1 Hydrops of gallbladder; R74.8 Abnormal levels of other serum enzymes; E11.311 Type 2 diabetes mellitus with unspecified diabetic retinopathy with macular edema; K56.2 Volvulus; K56.7 Ileus, unspecified; K21.9 Gastro-esophageal reflux disease without esophagitis; M19.90 Unspecified osteoarthritis, unspecified site; M85.80 Other specified disorders of bone density and structure, unspecified site; M79.7 Fibromyalgia; F32.A Depression, unspecified; K44.9 Diaphragmatic hernia without obstruction or gangrene; E03.9 Hypothyroidism, unspecified; Z20.822 Contact with and (suspected) exposure to COVID-19; Z79.82 Long term (current) use of aspirin; Z79.890 Hormone replacement therapy; Z79.4 Long term (current) use of insulin; Z79.899 Other long term (current) drug therapy; Z88.8 Allergy status to other drugs, medicaments and biological substances; Z91.040 Latex allergy status; Z87.891 Personal history of nicotine dependence; Z98.84 Bariatric surgery status; Z86.73 Personal history of transient ischemic attack (TIA), and cerebral infarction without residual deficits; Z96.41 Presence of insulin pump (external) (internal); Z87.19 Personal history of other diseases of the digestive system; Z98.42 Cataract extraction status, left eye; Z98.41 Cataract extraction status, right eye; Z96.1 Presence of intraocular lens; Z86.79 Personal history of other diseases of the circulatory system; Z90.710 Acquired absence of both cervix and uterus; Z90.49 Acquired absence of other specified parts of digestive tract; Z90.721 Acquired absence of ovaries, unilateral; Z98.890 Other specified postprocedural states; Z83.3 Family history of diabetes mellitus
CPT/HCPCS: 96376 ×5; 96361 ×3; 96365; 96366 ×2; 96372 ×3; 96375; 99285; 36415; 80053 ×4; 82150 ×2; 83605; 83690 ×2; 83735; 85025 ×4; 81001; 87086; 87635; 71045; 74018; 74019; 74177; G0378 ×4; J1650 ×3; J0696 ×4; J1170 ×4; Q9967

== ENCOUNTER → 2021-04-23 | Outpatient (CLI) | payer MEDICARE, OTHER ==
--- NOTE | 2021-04-25 09:43 | MM ---
Reason for exam: screening (asymptomatic). Last mammogram was performed 2 years and 10 months ago. History: Family history of breast cancer in maternal grandmother. Physical Findings: A clinical breast exam by your physician is recommended on an annual basis and results should be correlated with mammographic findings. MG 3D Screening Mammo W/Cad Bilateral CC and MLO view(s) were taken. Prior study comparison: June 28, 2018, bilateral MG 3d screening mammo w/cad. There are scattered fibroglandular densities. There is chronic nodularity in the right breast. New central left CC nodularity. No clear correlate on MLO. ASSESSMENT: Incomplete: need additional imaging evaluation, BI-RAD 0 RECOMMENDATION: Special view mammogram of the left breast. (3D) If lesion persists on supplemental views, image directed ultrasound is recommended. [facility] will attempt to contact patient to return for supplemental views and ultrasound if indicated.
== END | disposition home or self-care (01) ==
LOC: RADMAMWWP 14:54
PROVIDERS: ATTEND Family Medicine
DX: Z12.31 Encounter for screening mammogram for malignant neoplasm of breast (principal)
CPT/HCPCS: 77063; 77067

== ENCOUNTER → 2021-05-15 | Outpatient (CLI) | payer MEDICARE, OTHER ==
--- NOTE | 2021-05-15 11:05 | MM ---
Reason for exam: additional evaluation requested from abnormal screening. Last mammogram was performed 1 month ago. History: Family history of breast cancer in maternal grandmother. Physical Findings: Nurse did not find any significant physical abnormalities on exam. MG 3D Work Up W/Cad LT Spot compression CC, spot compression MLO, and LM view(s) were taken of the left breast. Prior study comparison: April 23, 2021, bilateral MG 3d screening mammo w/cad. June 28, 2018, bilateral MG 3d screening mammo w/cad. The breast tissue is heterogeneously dense. This may lower the sensitivity of mammography. Nodule 8.6mm at approximately 7.6cm from nipple central lower left breast. These results were verbally communicated with the patient and result sheet given to the patient on 05/15/21. ASSESSMENT: Incomplete: need additional imaging evaluation, BI-RAD 0 RECOMMENDATION: Ultrasound of the left breast.
--- NOTE | 2021-05-15 11:06 | USB ---
Reason for exam: additional evaluation requested from abnormal screening. History: Family history of breast cancer in maternal grandmother. US Breast Workup Limited LT Technologist: Nighat Lerma Left limited breast ultrasound including focal area of concern, retroareolar and axilla demonstrates a 0.8 x 0.9 x 0.6cm lesion at 6 o'clock. These results were verbally communicated with the patient and result sheet given to the patient on 05/15/21. ASSESSMENT: Suspicious, BI-RAD 4 RECOMMENDATION: Ultrasound core biopsy of the left breast. Called Dr. Brar's office with mammographic findings and has scheduled an appointment for the patient for 06/13/21 at 2:[address] Christensen. Biopsy scheduled for 06/14/21 at 10:30. PRELIMINARY REPORT CALLED AND FAXED TO DR. CHRISTENSEN ON 05/15/21.
== END | disposition home or self-care (01) ==
LOC: RADMAMWWP 08:55
PROVIDERS: ATTEND Family Medicine
DX: R92.8 Other abnormal and inconclusive findings on diagnostic imaging of breast (principal)
CPT/HCPCS: 77065; 76642; G0279; 77061

== ENCOUNTER → 2021-06-13 | Outpatient (CLI) | payer MEDICARE, OTHER ==
[2021-06-13 14:27] VITALS: BP 110/75; PULSE 99; RESP 17; TEMP 97.9
--- NOTE | 2021-06-13 15:10 | P.GSHP ---
History of Present Illness H&P Date: 06/13/21 Chief Complaint: abnormal left breast mammogram Anabella is a 56 year old white female seen in consultation for Dr. Brar regarding the radiographic abnormality in the left breast. She underwent a bilateral screening mammogram on 1422. Chronic nodularity was noted in the right breast in the central left cc nodularity was identified. Additional views were obtained of the left breast on 120 622 after which an ultrasound was recommended. On the ultrasound is 0.8 x 0.9 cm lesion at 6:00 was identified and ultrasound core biopsy was recommended. The patient feels some nodularity in her left breast, but states her breast are dense and hard to examine. She is not having pain at this time in her breast. She has never had any surgery on her breast. She has not had any recent trauma or infection in her breast. Caffeine: 1 cup/day nicotine: 1/2 PPD and vapes dailly chocolate: occasional Family history: maternal grandmother: breast Hormonal History: menarche: 18 , breast fed: yes, age at : 27 menopause: hysterectomy at 42; left one ovary BCP: 10 years, stopped at about 37 Surgical History: multiple abdominal surgeries/ redundant colon hernia bariatric sleeve Medical History: back pain diabetic bulging disc in her neck 3 TIA fibromyalgia Social History: nicotine: as above alcohol: used in she[place] of pain medication/ stopped 1 month ago drugs: Marijuana oil that she uses - Constitutional Constitutional: Denies chills, Denies fever - EENT Comment: macular edema steroid shots in her eyes Eyes: denies blurred vision, denies pain Ears: deny: decreased hearing, tinnitus Ears, nose, mouth and throat: Denies headache, Denies sore throat - Breasts Breasts: bilateral: as per HPI - Cardiovascular Cardiovascular: Denies chest pain, Denies shortness of breath - Respiratory Respiratory: Denies cough, Denies 7 - Gastrointestinal Gastrointestinal: Reports constipation, Denies abdominal pain, Denies diarrhea, Denies nausea, Denies vomiting - Genitourinary (Female) Genitourinary: Denies dysuria, Denies hematuria - Menstruation Menstruation: Reports post hysterectomy - Musculoskeletal Musculoskeletal: Reports as per HPI - Integumentary Integumentary: Reports pruritus - Neurological Neurological: Reports numbness, Denies weakness - Psychiatric Psychiatric: Reports anxiety, Reports depression - Endocrine Comment: weight gain Endocrine: Reports weight change - Hematologic/Lymphatic Comment: none - Allergic/Immunologic Allergic/Immunologic: Reports as per HPI Past Medical History Past Medical History: CVA/TIA, Diabetes Mellitus, Eye Disorder, Fibromyalgia, GERD/Reflux, Osteoarthritis (OA), Thyroid Disorder Additional Past Medical History / Comment(s): hx Pancreatitis, TIA's-slow speach and a little "processing things", insulin pump, "macular edema", Vertigo , Chronic Back Pain-bulging discs, Osteopenia, small hiatal hernia, hx kidney "issue" from motrin/tylenol use-resolved History of Any Multi-Drug Resistant Organisms: None Reported Past Surgical History: Appendectomy, Bariatric Surgery, Hysterectomy, Orthopedic Surgery Additional Past Surgical History / Comment(s): ESTEFANY FUNDOPLASTY. lysis of adheasions, gastric sleeve, Carpal tunnel bilateral, right oophorectomy, mult laparoscopy, pannicuilectomy, sara lens implants/cataracts Past Anesthesia/Blood Transfusion Reactions: Motion Sickness Additional Past Anesthesia/Blood Transfusion Reaction / Comment(s): vertigo Past Psychological History: Depression Smoking Status: Former smoker Past Alcohol Use History: Rare Additional Past Alcohol Use History / Comment(s): quit smoking 2019, smoked for 20 yrs, Past Drug Use History: Marijuana Additional Drug Use History / Comment(s): occ edible - Past Family History Father Family Medical History: Diabetes Mellitus Mother Family Medical History: No Reported History Medications and Allergies Home Medications Medication Instructions Recorded Confirmed Type Polyethylene Glycol 3350 [Miralax] 17 gm PO DAILY 01/07/18 06/13/21 History Aspirin [Adult Low Dose Aspirin EC] 81 mg PO DAILY 09/30/18 06/13/21 History Albuterol Inhaler [Ventolin Hfa 1 - 2 puff INHALATION RT-QID PRN 05/24/20 06/13/21 History Inhaler] Cholecalciferol [Vitamin D3 (25 25 mcg PO DAILY 05/24/20 06/13/21 History Mcg = 1000 Iu)] Hydrochlorothiazide 12.5 mg PO Q48H 05/24/20 06/13/21 History [hydroCHLOROthiazide] Mv-Min/Folic/Vit K/Lut/Vxmz671 1 each PO DAILY 05/24/20 06/13/21 History [Alive Women's 50 Plus Tablet] Simvastatin [Zocor] 20 mg PO HS 05/24/20 06/13/21 History methocarbamoL [Robaxin] 500 mg PO Q6HR PRN 05/24/20 06/13/21 History Calcium Carb/Mag Ox/Zinc Sulf 1 tab PO DAILY 03/05/21 06/13/21 History [Wti-Kqv-Gxra 334-134-5 mg Tab] Cider Vinegar [Apple Cider Vinegar] 300 mg PO DAILY 03/05/21 06/13/21 History Desvenlafaxine [Pristiq ER] 50 mg PO TID 03/05/21 06/13/21 History Ferrous Sulfate [Iron (65 MG 325 mg PO DAILY 03/05/21 06/13/21 History Elemental)] Synthroid (Koffi) 50 mg PO DAILY 03/05/21 06/13/21 History oxyCODONE HCL [oxyCODONE HCL (IR)] 10 mg PO QID PRN 03/05/21 06/13/21 History Docusate [Colace] 100 mg PO BID cap 03/08/21 06/13/21 Rx Lactulose [Cephulac] 30 gm PO DAILY ml 03/08/21 06/13/21 Rx Magnesium Hydroxide [Milk of 2,400 mg PO DAILY ml 03/08/21 06/13/21 Rx Magnesia Concentrate] Insulin Aspart (For Pump) [NovoLOG 0.01 unit SQ-PUMP CONTINUOUS 06/12/21 06/13/21 History (For Pump)] hydrALAZINE HCL 25 mg PO Q6HR PRN 06/12/21 06/13/21 History Allergies Allergy/AdvReac Type Severity Reaction Status Date / Time latex Allergy Rash/Hives Verified 06/13/21 14:16 vitamins Allergy Rash/Hives Uncoded 06/13/21 14:16 Surgical - Exam Vital Signs Temp Pulse Resp BP Pulse Ox 97.9 F 99 17 110/75 100 06/13/21 14:23 06/13/21 14:23 06/13/21 14:23 06/13/21 14:23 06/13/21 14:23 BMI 31.9 - General no distress - Eyes normal ocular movement - Neck trachea midline - Respiratory normal respiratory effort - Cardiovascular Rhythm: regular Heart Sounds: normal: S1, S2 - Abdomen Abdomen: soft - Integumentary normal turgor - Neurologic no disoriented, no combative - Musculoskeletal normal gait, normal posture - Psychiatric oriented to time, oriented to person, oriented to place, speech is normal, memory intact Breast Exam: BRA: 42C inspection: bilateral grade 2/3 ptosis palpation: right breast: Multi-positional exam fibrocystic changes, no dominant masses or nodules of concern Right axilla: No adenopathy of concern Left breast: Multi-positional exam fibrocystic changes no dominant masses or nodules of concern Left axilla: No adenopathy of concern Results Mammogram and ultrasound reviewed in detail with Dr. Avila from radiology Assessment and Plan Assessment: Impression: back pain diabetic bulging disc in her neck 3 TIA fibromyalgia Ultrasound abnormality in the left breast, 0.8 x 0.9 cm lesion at 6:00 mastodynia Plan: 1. Attempt at ultrasound-guided core biopsy of the left breast lesion 2. Confirm that the ultrasound lesion corresponds with as seen radiographically 3. If the ultrasound lesion cannot be seen at that attempt at biopsy would repeat left breast mammogram and ultrasound in 6 months 4. Patient is encouraged to stop smoking Risks and benefits of the procedure discussed with the patient. Risks include but are not limited to bleeding, infection, reaction to the anesthetic. Additionally if the findings were to be discordant then further procedure may be recommended. She understands and this will be scheduled for the near future. CC: Dr. Brar
== END | disposition home or self-care (01) ==
LOC: WWCWWP 14:06
PROVIDERS: ATTEND Surgery
DX: Z53.9 Procedure and treatment not carried out, unspecified reason (principal)

== ENCOUNTER → 2021-06-14 | Day surgery (SDC) | payer MEDICARE, OTHER ==
[2021-06-14 09:45] VITALS: RESP 16
[2021-06-14 11:07] VITALS: BP 110/72; PULSE 84; TEMP 98.6
--- NOTE | 2021-06-14 11:47 | USB ---
EXAMINATION TYPE: US biopsy breast VAD LT, MG diagnostic mammo LT wo CAD DATE OF EXAM: 06/14/2021 CLINICAL HISTORY: R92.8 ABNORMAL MAMMOGRAM. TECHNIQUE: Ultrasound guided core biopsy of left 6:00 breast. COMPARISON: 05/15/2021 FINDINGS: The procedure of ultrasound guided core biopsy was explained to the patient. Benefits, alternatives, and risks were discussed. An informed consent was then obtained. The patient was placed in supine positioning for imaging and for the procedure. The overlying skin was prepped and draped in usual sterile fashion. Lidocaine buffered with bicarbonate was used as anesthetic into the skin and subcutaneous tissue up to area of concern in the left 6:00 breast. Under ultrasound guidance, a 12-gauge vacuum assisted biopsy gun device was used to obtain 4 core samples. Following this, a biopsy clip was left in lesion. Postprocedural mammogram demonstrates appropriate clip placement. The patient tolerated the procedure well without any immediate complication. The patient was kept in the radiology department for short stay after the procedure and then discharged home in stable condition. IMPRESSION: Successful, uncomplicated ultrasound guided core biopsy of area of concern in the left 6:00 breast, full pathology results to follow. Pathology Results: Benign LEFT BREAST, 6:00 POSITION, CORE BIOPSY: Fibrocystic change with stromal fibrosis and focal features compatible with pseudoangiomatous stromal hyperplasia (PASH) (see note). Rare microcalcification, focal columnar cell change, and mild to moderate usual ductal hyperplasia present. Recommendation Follow up ultrasound of the left breast in 6 months. LIBRA
== END ==
LOC: RADUSWWP 09:33
PROVIDERS: ATTEND Surgery
DX: R92.8 Other abnormal and inconclusive findings on diagnostic imaging of breast (principal); N60.32 Fibrosclerosis of left breast; N62 Hypertrophy of breast
CPT/HCPCS: 88305; 77065; 19083; A4648; J2001

== ENCOUNTER → 2021-06-20 | Outpatient (CLI) | payer MEDICARE, OTHER ==
[2021-06-20 10:48] VITALS: BP 130/79; PULSE 100; RESP 18; TEMP 98.5
--- NOTE | 2021-06-20 11:13 | P.PN ---
Progress Note - Text Progress Note Date: 06/20/21 Anabella is a 56-year-old white female status post ultrasound-guided core biopsy of the left breast and 220 [id number]. The lesion of concern is felt to be concordant with what was seen radiographically and the biopsy is felt to be benign and concordant. This was reviewed in detail with Dr. Lomas from radiology. Left breast lesion revealed fibrocystic changes with stromal fibrosis and focal features compatible with pseudo-angiomatous stromal hyperplasia. She tolerated the procedure without any difficulty. Physical examination: Lungs: Clear Heart: Regular rate and rhythm Biopsy site clean and dry no evidence of infection or hematoma Impression: Concordant core biopsy left breast both radiographically the area of concern as well as concordant tissue from the site Plan: Repeat left breast mammogram in 6 months with physician exam at that time CC: DR. Brar
== END | disposition home or self-care (01) ==
LOC: WWCWWP 10:16
PROVIDERS: ATTEND Surgery
DX: Z53.9 Procedure and treatment not carried out, unspecified reason (principal)

== ENCOUNTER → 2021-12-20 | Outpatient (CLI) | payer MEDICARE, OTHER ==
--- NOTE | 2021-12-20 12:45 | P.PN ---
Subjective Progress Note Date: 12/20/21 Principal diagnosis: fibrocystic breast changes Anabella is a 56 year old white female seen in consultation for Dr. Brar regarding the radiographic abnormality in the left breast. She underwent a bilateral screening mammogram on 1422. Chronic nodularity was noted in the right breast in the central left cc nodularity was identified. [place] [address] after which an ultrasound was recommended. On the ultrasound is 0.8 x 0.9 cm lesion at 6:00 was identified and ultrasound core biopsy was recommended. The patient felt some nodularity in her left breast, but stated her breast are dense and hard to examine. She is not having pain at this time in her breast. She has never had any surgery on her breast, but had an ultrasound core biopsyh on 06-14-21. She has not had any recent trauma or infection in her breast. She underwent an ultrasound guided core biopsy on 06-14-21 which was benign and concordant. There is not complaining of any lumps masses or nodules in either breast. Caffeine: 1 cup/day nicotine: 1/2 PPD and vapes dailly chocolate: occasional Family history: maternal grandmother: breast Hormonal History: menarche: 18 , breast fed: yes, age at : 27 menopause: hysterectomy at 42; left one ovary BCP: 10 years, stopped at about 37 Surgical History: multiple abdominal surgeries/ redundant colon hernia bariatric sleeve Medical History: back pain diabetic bulging disc in her neck 3 TIA fibromyalgia Social History: nicotine: as above alcohol: used in she[place] of pain medication/ stopped 1 month ago drugs: Marijuana oil that she uses - Constitutional Constitutional: Denies chills, Denies fever - EENT Comment: macular edema steroid shots in her eyes Eyes: denies blurred vision, denies pain Ears: deny: decreased hearing, tinnitus Ears, nose, mouth and throat: Denies headache, Denies sore throat - Breasts Breasts: bilateral: as per HPI - Cardiovascular Cardiovascular: Denies chest pain, Denies shortness of breath - Respiratory Respiratory: Denies cough - Gastrointestinal Gastrointestinal: Reports constipation, Denies abdominal pain, Denies diarrhea, Denies nausea, Denies vomiting - Genitourinary (Female) Genitourinary: Denies dysuria, Denies hematuria - Menstruation Menstruation: Reports post hysterectomy - Musculoskeletal Musculoskeletal: Reports as per HPI - Integumentary Integumentary: Reports pruritus - Neurological Neurological: Reports numbness, Denies weakness - Psychiatric Psychiatric: Reports anxiety, Reports depression - Endocrine Comment: weight gain Endocrine: Reports weight change - Hematologic/Lymphatic Comment: none - Allergic/Immunologic Allergic/Immunologic: Reports as per HPI Past Medical History Past Medical History: CVA/TIA, Diabetes Mellitus, Eye Disorder, Fibromyalgia, GERD/Reflux, Osteoarthritis (OA), Thyroid Disorder Additional Past Medical History / Comment(s): hx Pancreatitis, TIA's-slow speach and a little "processing things", insulin pump, "macular edema", Vertigo , Chronic Back Pain-bulging discs, Osteopenia, small hiatal hernia, hx kidney "issue" from motrin/tylenol use-resolved History of Any Multi-Drug Resistant Organisms: None Reported Past Surgical History: Appendectomy, Bariatric Surgery, Hysterectomy, Orthopedic Surgery Additional Past Surgical History / Comment(s): ESTEFANY FUNDOPLASTY. lysis of adheasions, gastric sleeve, Carpal tunnel bilateral, right oophorectomy, mult laparoscopy, pannicuilectomy, sara lens implants/cataracts Past Anesthesia/Blood Transfusion Reactions: Motion Sickness Additional Past Anesthesia/Blood Transfusion Reaction / Comment(s): vertigo Past Psychological History: Depression Smoking Status: Former smoker Past Alcohol Use History: Rare Additional Past Alcohol Use History / Comment(s): quit smoking 2019, smoked for 20 yrs, Past Drug Use History: Marijuana Additional Drug Use History / Comment(s): occ edible - Past Family History Father Family Medical History: Diabetes Mellitus Mother Family Medical History: No Reported History Medications and Allergies Home Medications Medication Instructions Recorded Confirmed Type Polyethylene Glycol 3350 [Miralax] 17 gm PO DAILY 01/07/18 06/13/21 History Aspirin [Adult Low Dose Aspirin EC] 81 mg PO DAILY 09/30/18 06/13/21 History Albuterol Inhaler [Ventolin Hfa 1 - 2 puff INHALATION RT-QID PRN 05/24/20 06/13/21 History Inhaler] Cholecalciferol [Vitamin D3 (25 25 mcg PO DAILY 05/24/20 06/13/21 History Mcg = 1000 Iu)] Hydrochlorothiazide 12.5 mg PO Q48H 05/24/20 06/13/21 History [hydroCHLOROthiazide] Mv-Min/Folic/Vit K/Lut/Dwfl951 1 each PO DAILY 05/24/20 06/13/21 History [Alive Women's 50 Plus Tablet] Simvastatin [Zocor] 20 mg PO HS 05/24/20 06/13/21 History methocarbamoL [Robaxin] 500 mg PO Q6HR PRN 05/24/20 06/13/21 History Calcium Carb/Mag Ox/Zinc Sulf 1 tab PO DAILY 03/05/21 06/13/21 History [Bqs-Usv-Wkfy 334-134-5 mg Tab] Cider Vinegar [Apple Cider Vinegar] 300 mg PO DAILY 03/05/21 06/13/21 History Desvenlafaxine [Pristiq ER] 50 mg PO TID 03/05/21 06/13/21 History Ferrous Sulfate [Iron (65 MG 325 mg PO DAILY 03/05/21 06/13/21 History Elemental)] Synthroid (Koffi) 50 mg PO DAILY 03/05/21 06/13/21 History oxyCODONE HCL [oxyCODONE HCL (IR)] 10 mg PO QID PRN 03/05/21 06/13/21 History Docusate [Colace] 100 mg PO BID cap 03/08/21 06/13/21 Rx Lactulose [Cephulac] 30 gm PO DAILY ml 03/08/21 06/13/21 Rx Magnesium Hydroxide [Milk of 2,400 mg PO DAILY ml 03/08/21 06/13/21 Rx Magnesia Concentrate] Insulin Aspart (For Pump) [NovoLOG 0.01 unit SQ-PUMP CONTINUOUS 06/12/21 06/13/21 History (For Pump)] hydrALAZINE HCL 25 mg PO Q6HR PRN 06/12/21 06/13/21 History Objective - Vital Signs Vital signs: Intake & Output 12/19/21 12/20/21 12/20/21 18:59 06:59 18:59 Weight 81.647 kg - Exam BMI: 31.9 - Constitutional General appearance: Present: cooperative - EENT Eyes: Present: EOMI - Neck Neck: Present: normal ROM - Respiratory Respiratory: bilateral: CTA - Cardiovascular Rhythm: regular Heart sounds: normal: S1, S2 - Integumentary Integumentary: Present: normal turgor - Musculoskeletal Musculoskeletal: Present: gait normal - Psychiatric Psychiatric: Present: A&O x's 3, appropriate affect, intact judgment & insight - Additional findings Additional findings: Breast Exam: BRA; 42C Inspection: Bilateral grade 2/3 ptosis Palpation: Right breast: Multiple positional exam fibrocystic changes no dominant masses or nodules of concern Right axilla: No adenopathy of concern Left breast: Multi-positional exam fibrocystic changes no dominant masses or nodules of concern Left axilla: No adenopathy of concern Assessment and Plan Assessment: Impression: back pain diabetic bulging disc in her neck 3 TIA fibromyalgia Fibrocystic breast changes Ultrasound-guided core biopsy left breast [id number] Plan: Left breast mammogram Bilateral mammogram in 6 months of left breast mammogram is stable now with appointment CC: Dr. Brar
[2021-12-20 12:47] VITALS: BP 111/73; PULSE 92; RESP 16; TEMP 98.9
== END | disposition home or self-care (01) ==
LOC: WWCWWP 12:22
PROVIDERS: ATTEND Surgery
DX: Z53.9 Procedure and treatment not carried out, unspecified reason (principal)

== ENCOUNTER → 2021-12-20 | Outpatient (CLI) | payer MEDICARE, OTHER ==
--- NOTE | 2021-12-20 13:28 | MM ---
Reason for Exam: Follow-up at short interval from prior study. Last screening mammogram was performed 8 month(s) ago. Patient History: Menarche at age 18. First Full-Term at age 27. Right ovary removed at age 21. Hysterectomy at age 40. Postmenopausal. Patient has history of breast feeding. 06/14/2021, Benign Core Biopsy on the left side. Maternal grandmother had breast cancer. Risk Values: Shira 5 year model risk: 1.4%. NCI Lifetime model risk: 9.9%. Prior Study Comparison: 03/27/2015 Screening Mammogram, Unknown. 06/28/2018 Bilateral Screening Mammogram, [facility]. 04/23/2021 Bilateral Screening Mammogram, [facility]. 05/15/2021 Left Diagnostic Mammogram, [facility]. 06/14/2021 Left Diagnostic Mammogram, [facility]. Tissue Density: Left: The breast tissue is heterogeneously dense. This may lower the sensitivity of mammography. Findings: Analyzed By CAD. Nodular density within the mid left breast appears stable. There is a biopsy clip nearby. Other some increased density within distinct margins within the 6 to 7:00 position left breast. A suspicious spiculated or lobular mass is not identified. No suspicious calcifications evident. Overall Assessment: Probably benign, BI-RAD 3 Management: Diagnostic Mammogram of both breasts in 4 months. A negative mammogram report should not preclude additional follow up of suspicious palpable abnormalities. Patient should continue monthly self breast exam. A clinical breast exam by your physician is recommended on an annual basis and results should be correlated with mammographic findings. Electronically signed and approved by: Ankush Lomas D.O. Radiologis
== END | disposition home or self-care (01) ==
LOC: RADMAMWWP 12:40
PROVIDERS: ATTEND Surgery
DX: R92.8 Other abnormal and inconclusive findings on diagnostic imaging of breast (principal)
CPT/HCPCS: 77065; G0279; 77061

== ENCOUNTER → 2023-01-26 | Outpatient (CLI) | payer MEDICARE, OTHER ==
--- NOTE | 2023-01-26 13:12 | MM ---
Reason for Exam: Follow-up at short interval from prior study. Last mammogram was performed 1 year(s) and 9 month(s) ago. Patient History: Menarche at age 18. First Full-Term at age 27. Right ovary removed at age 21. Hysterectomy at age 40. Postmenopausal. Patient has history of breast feeding. 06/14/2021, Benign Core Biopsy on the left side. Maternal grandmother had breast cancer. Risk Values: Shira 5 year model risk: 1.4%. NCI Lifetime model risk: 9.8%. Prior Study Comparison: 08/20/2010 Screening Mammogram, Unknown. 03/27/2015 Screening Mammogram, Unknown. 06/28/2018 Bilateral Screening Mammogram, [facility]. 07/06/2018 Left Diagnostic Ultrasound, [facility]. 04/23/2021 Bilateral Screening Mammogram, [facility]. 05/15/2021 Left Diagnostic Mammogram, [facility]. 05/15/2021 Left Diagnostic Ultrasound, [facility]. 06/14/2021 Left Diagnostic Mammogram, [facility]. 12/20/2021 Left MG 3D diag mammo w/cad LT, [facility]. Tissue Density: There are scattered fibroglandular densities. Findings: Analyzed By CAD. Remote left postprocedural changes with left clip in place. No new suspicious masses, calcifications or distortions. Overall Assessment: Benign, BI-RAD 2 Management: Screening Mammogram of both breasts in 1 year. Results were given to the patient verbally at the time of exam. Patient should continue monthly self-breast exams. A clinical breast exam by your physician is recommended on an annual basis. This exam should not preclude additional follow-up of suspicious palpable abnormalities. Note on Shira scores and lifetime risk: 1. A Shira score greater than 3% is considered moderate risk. If this is the case, consider specialist referral to assess eligibility for a risk reducing agent. 2. If overall lifetime risk for the development of breast cancer is 20% or higher, the patient may qualify for future screening with alternating mammogram and breast MRI. Electronically signed and approved by: Edmundo Mcfarlane DO
== END | disposition home or self-care (01) ==
LOC: RADMAMWWP 12:29
PROVIDERS: ATTEND Family Medicine
DX: R92.323 Mammographic fibroglandular density, bilateral breasts (principal); Z80.3 Family history of malignant neoplasm of breast; Z78.0 Asymptomatic menopausal state
CPT/HCPCS: 77062; 77066

== ENCOUNTER → 2023-03-10 | Outpatient (CLI) | payer MEDICARE, OTHER ==
[2023-03-10 18:15] LABS: Basophils # (A) 0.06 X 10*3/uL (0.00-0.10); Basophils % (A) 0.6 %; Eosinophils # (A) 0.15 X 10*3/uL (0.04-0.35); Eosinophils % (A) 1.6 %; HCT 46.6 % (37.2-46.3); HGB 15.5 g/dL (12.0-15.0); Lymphocytes # (A) 2.83 X 10*3/uL (0.90-5.00); Lymphocytes % (A) 30.2 %; MCH 30.2 pg (27.0-32.0); MCHC 33.3 g/dL (32.0-37.0); MCV 90.8 FL (80.0-97.0); Mean Platelet Volume 9.6 FL (9.5-12.2); Monocytes # (A) 0.42 X 10*3/uL (0.20-1.00); Monocytes % (A) 4.5 %; NRBC Per 100 WBC 0 X 10*3/uL (0.00-0.01); Neutrophils # (A) 5.88 X 10*3/uL (1.80-7.70); Neutrophils % (A) 62.8 %; Platelet Count 472 X 10*3/uL (140-440); RBC 5.13 X 10*6/uL (4.10-5.20); RDW 11.9 % (11.5-14.5); WBC 9.37 X 10*3/uL (4.50-10.00)
[2023-03-10 18:25] LABS: Erythrocyte Sedimentation Rate 37 mm/Hr (0-30)
[2023-03-10 18:47] LABS: ALT 25 U/L (8-44); AST 30 U/L (13-35); Albumin 4.4 g/dL (3.8-4.9); Albumin/Globulin Ratio 1.63 Ratio (1.60-3.17); Alkaline Phosphatase 82 U/L (41-126); Blood Urea Nitrogen 12.1 mg/dL (9.0-27.0); Calcium 10.1 mg/dL (8.7-10.3); Carbon Dioxide 22.5 mmol/L (21.6-31.8); Chloride 102 mmol/L (96-109); Chol/HDL Ratio 2.74 Ratio; Creatine Kinase 40 U/L (26-186); Globulin 2.7 g/dL (1.6-3.3); Glucose 81 mg/dL (70-110); LDL Cholesterol,Calculated 84.2 mg/dL (0.0-131.0); Potassium 3.9 mmol/L (3.5-5.5); Rheumatoid Factor, Qnt <15 IU/mL (0-15); Sodium 141 mmol/L (135-145); T4, Free (Free Thyroxine) 1.25 ng/dL (0.80-1.80); Total Bilirubin 0.3 mg/dL (0.3-1.2); Total Protein 7.1 g/dL (6.2-8.2); Uric Acid 7.4 mg/dL (2.9-7.7)
[2023-03-11 00:29] LABS: Cyclic Citrull Pep IgG Unit <1.5 U/mL (<=3.9); Cyclic Citrullinated Pep IgG Negative
[2023-03-11 09:03] LABS: HLA B27 NEGATIVE
[2023-03-11 11:31] LABS: Angiotensin-1 Converting Enz. 25 U/L (8-52)
== END | disposition home or self-care (01) ==
LOC: LABWHC1 12:37
PROVIDERS: ATTEND Family Medicine
DX: Z00.00 Encounter for general adult medical examination without abnormal findings (principal); E11.311 Type 2 diabetes mellitus with unspecified diabetic retinopathy with macular edema; E78.00 Pure hypercholesterolemia, unspecified; E03.9 Hypothyroidism, unspecified; M25.511 Pain in right shoulder; M25.512 Pain in left shoulder; M50.30 Other cervical disc degeneration, unspecified cervical region; M54.12 Radiculopathy, cervical region; M47.812 Spondylosis without myelopathy or radiculopathy, cervical region
CPT/HCPCS: 36415; 80053; 80061; 82164; 82306; 82550; 83036; 84439; 84443; 84550; 85025; 85652; 86038; 86140; 86200; 86431; 86812

== ENCOUNTER 2023-11-24 08:15 | Day surgery (SDC) | payer MEDICARE ==
[~2023-11-24 08:15] MED LIST changes: -DEXAMETHASONE SOD PHOSPHATE 4 MG/ML 1 ML VIAL IV PRN; +LACTATED RINGERS 1,000 ML BAG ONE; -LACTATED RINGERS 1,000 ML IV SCH; -MIDAZOLAM 2 MG/2 ML VIAL IV PRN; -ONDANSETRON 4 MG/2 ML VIAL IVP PRN; -Pre Op ABX Message 1 EACH MISC MISCELLANE ONE; -SCOPOLAMINE 1.5MG/72HR PATCH TRANSDERM PRN
[2023-11-24] MEDS ORDERED: LIDOCAINE 2% (PF) 20 MG/ML 5 ML VIAL ONE (08:19)
[2023-11-24] MEDS ORDERED: PROPOFOL 10 MG/ML 20 ML VIAL IV ONE (08:19)
== END 2023-11-24 09:30 ==
LOC: ORWHC2ENDO 08:15 → MERGE 08:30 → ORWHC2ENDO 09:30
PROVIDERS: ATTEND Internal Medicine Gastroenterology
DX: Z12.11 Encounter for screening for malignant neoplasm of colon (principal); E78.5 Hyperlipidemia, unspecified; E11.9 Type 2 diabetes mellitus without complications; E07.9 Disorder of thyroid, unspecified; F17.290 Nicotine dependence, other tobacco product, uncomplicated; Z79.899 Other long term (current) drug therapy; Z86.010 Personal history of colon polyps; Z79.82 Long term (current) use of aspirin; Z79.890 Hormone replacement therapy; Z91.040 Latex allergy status; Z88.8 Allergy status to other drugs, medicaments and biological substances
CPT/HCPCS: 43239; 45378

== ENCOUNTER 2024-04-06 14:54 | Observation (INO) | payer MEDICARE ==
--- NOTE | 2024-04-06 15:19 | ED ---
Recheck HPI - General Chief Complaint: Recheck/Abnormal Lab/Rx Stated Complaint: Hypotension Time Seen by Provider: 04/06/24 15:12 Source: patient, RN notes reviewed, old records reviewed Mode of arrival: wheelchair Limitations: no limitations - History of Present Illness Initial Comments: This is a 59-year-old female to the ER for evaluation today. Patient presents today for evaluation of urinary tract infection with low blood pressure decreased appetite patient does not feel well MD Complaint: abnormal lab -: days(s) Returns Today for: Called Because of Abnormal Lab/Test, persistent/worsening pain related to initial visit Symptoms Since Prior Visit: no new symptoms Associated Symptoms: none Treatments Prior to Arrival: other (0) - Related Data Home Medications Medication Instructions Recorded Confirmed Aspirin [Adult Low Dose Aspirin EC] 81 mg PO DAILY 09/30/18 04/06/24 Cholecalciferol [Vitamin D3 (25 25 mcg PO DAILY 05/24/20 04/06/24 Mcg = 1000 Iu)] Simvastatin [Zocor] 20 mg PO HS 05/24/20 04/06/24 Cider Vinegar [Apple Cider Vinegar] 300 mg PO DAILY 03/05/21 04/06/24 Ferrous Sulfate [Iron (65 MG 325 mg PO DAILY 03/05/21 04/06/24 Elemental)] oxyCODONE HCL [oxyCODONE HCL (IR)] 10 mg PO TID 03/05/21 04/06/24 Insulin Aspart (For Pump) [NovoLOG 0.01 unit SQ-PUMP CONTINUOUS 06/12/21 04/06/24 (For Pump)] Ascorbic Acid [Vitamin C] 1,000 mg PO DAILY 04/06/24 04/06/24 Cariprazine HCl [Vraylar] 3 mg PO DAILY 04/06/24 04/06/24 Elderberry Fruit [Elderberry] 350 mg PO DAILY 04/06/24 04/06/24 Flax Seed Oil 1400mg 1 cap PO DAILY 04/06/24 04/06/24 Levothyroxine Sodium [Synthroid] 50 mcg PO DAILY 04/06/24 04/06/24 Magnesium Oxide [Mag-Ox] 400 mg PO DAILY 04/06/24 04/06/24 Melatonin 5 mg PO HS 04/06/24 04/06/24 [place]-3/Dha/Epa/Fish Oil [Fish Oil 1 cap PO DAILY 04/06/24 04/06/24 1,000 mg Softgel] Omeprazole [PriLOSEC] 20 mg PO DAILY 04/06/24 04/06/24 Sulfamethox-Tmp 800-160Mg [Bactrim 1 tab PO DIRECTED 04/06/24 04/06/24 DS 800-160 mg] Vitamin E (Dl,Tocopheryl Acet) 400 unit PO DAILY 04/06/24 04/06/24 [Vitamin E (400 Iu = 180 mg)] Zinc Gluconate [Zinc] 50 mg PO DAILY 04/06/24 04/06/24 hydrOXYzine HCL [Atarax] 25 mg PO QID PRN 04/06/24 04/06/24 Allergies Allergy/AdvReac Type Severity Reaction Status Date / Time latex Allergy Rash/Hives Verified 04/06/24 16:32 vitamins Allergy Rash/Hives Uncoded 04/06/24 16:32 Review of Systems ROS Statement: Those systems with pertinent positive or pertinent negative responses have been documented in the HPI. ROS Other: All systems not noted in ROS Statement are negative. Past Medical History Past Medical History: CVA/TIA, Diabetes Mellitus, Eye Disorder, Fibromyalgia, GERD/Reflux, Osteoarthritis (OA), Thyroid Disorder Additional Past Medical History / Comment(s): hx Pancreatitis, TIA's-slow speach and a little "processing things", insulin pump, "macular edema", Vertigo , Chronic Back Pain-bulging discs, Osteopenia, small hiatal hernia, hx kidney "issue" from motrin/tylenol use-resolved History of Any Multi-Drug Resistant Organisms: None Reported Past Surgical History: Appendectomy, Bariatric Surgery, Hysterectomy, Orthopedic Surgery Additional Past Surgical History / Comment(s): ESTEFANY FUNDOPLASTY. lysis of adheasions, gastric sleeve, Carpal tunnel bilateral, right oophorectomy, mult laparoscopy, pannicuilectomy, sara lens implants/cataracts Past Anesthesia/Blood Transfusion Reactions: Motion Sickness Additional Past Anesthesia/Blood Transfusion Reaction / Comment(s): vertigo Past Psychological History: Depression Smoking Status: Current every day smoker Past Alcohol Use History: Rare Past Drug Use History: Marijuana - Past Family History Mother Family Medical History: No Reported History General Exam Limitations: no limitations General appearance: alert, in no apparent distress Head exam: Present: atraumatic, normocephalic, normal inspection Eye exam: Present: normal appearance, PERRL, EOMI. Absent: scleral icterus, conjunctival injection, periorbital swelling ENT exam: Present: normal exam, mucous membranes moist Neck exam: Present: normal inspection. Absent: tenderness, meningismus, lymphadenopathy Respiratory exam: Present: normal lung sounds bilaterally. Absent: respiratory distress, wheezes, rales, rhonchi, stridor Cardiovascular Exam: Present: regular rate, normal rhythm, normal heart sounds. Absent: systolic murmur, diastolic murmur, rubs, gallop, clicks GI/Abdominal exam: Present: soft, normal bowel sounds. Absent: distended, tenderness, guarding, rebound, rigid Extremities exam: Present: normal inspection, full ROM, normal capillary refill. Absent: tenderness, pedal edema, joint swelling, calf tenderness Back exam: Present: normal inspection Neurological exam: Present: alert, oriented X3, CN II-XII intact Psychiatric exam: Present: normal affect, normal mood Skin exam: Present: warm, dry, intact, normal color. Absent: rash Course Vital Signs 04/06/24 04/06/24 04/06/24 15:05 15:39 17:01 Temperature 98.5 F Pulse Rate 67 61 80 Respiratory 16 18 18 Rate Blood Pressure 99/68 94/66 96/53 O2 Sat by Pulse 98 98 98 Oximetry 04/06/24 04/06/24 04/07/24 18:25 20:41 00:09 Temperature Pulse Rate 74 82 70 Respiratory 16 20 16 Rate Blood Pressure 99/57 104/54 92/50 O2 Sat by Pulse 100 97 96 Oximetry 04/07/24 04/07/24 04/07/24 02:27 06:03 07:28 Temperature Pulse Rate 76 65 65 Respiratory 16 16 14 Rate Blood Pressure 111/63 112/61 109/73 O2 Sat by Pulse 99 98 94 L Oximetry 04/07/24 04/07/24 04/07/24 11:32 14:14 15:28 Temperature 98.7 F Pulse Rate 60 69 72 Respiratory 18 18 16 Rate Blood Pressure 91/53 101/50 90/55 O2 Sat by Pulse 98 97 97 Oximetry - Reevaluation(s) Reevaluation #1: 04/06/24 17:23 Medical records reviewed Reevaluation #2: 12/18/24 17:23 Patient symptoms relatively unchanged Reevaluation #3: 04/06/24 17:23 Patient informed of results and questions answered Reevaluation #4: Was pt. sent in by a medical professional or institution (DAMARIS Cole, HAND PAINTER, urgent care, hospital, or retirement...) When possible be specific @ -no Did you speak to anyone other than the patient for history (EMS, parent, family, police, friend...)? What history was obtained from this source @ -no Did you review nursing and triage notes (agree or disagree)? Why? @ -agree Are old charts reviewed (outside hosp., previous admission, EMS record, old EKG, old radiological studies, urgent care reports/EKG's, retirement records)? Report findings @ -yes Differential Diagnosis (chest pain, altered mental status, abdominal pain women, abdominal pain men, vaginal bleeding, weakness, fever, dyspnea, syncope, headache, dizziness, GI bleed, back pain, seizure, CVA, palpatations, mental health, musculoskeletal)? @ -prior EKG interpreted by me (3pts min.). @ -yes X-rays interpreted by me (1pt min.). @ -no CT interpreted by me (1pt min.). @ -no U/S interpreted by me (1pt. min.). @ -no What testing was considered but not performed or refused? (CT, X-rays, U/S, labs)? Why? @ -none What meds were considered but not given or refused? Why? @ -none Did you discuss the management of the patient with other professionals (professionals i.e. DAMARIS Cole, HAND PAINTER, lab, RT, psych nurse, social services analyst, industrial engineering manager, teacher, youth corrections officer, complex case manager)? Give summary @ -no Was smoking cessation discussed for >3mins.? @ -no Was critical care preformed (if so, how long)? @ -no Were there social determinants of health that impacted care today? How? (Homelessness, low income, unemployed, alcoholism, drug addiction, transportation, low edu. Level, literacy, decrease access to med. care, longterm, rehab)? @ -none Was there de-escalation of care discussed even if they declined (Discuss DNR or withdrawal of care, Hospice)? DNR status @ -no What co-morbidities impacted this encounter? (DM, HTN, Smoking, COPD, CAD, Cancer, CVA, ARF, Chemo, Hep., AIDS, mental health diagnosis, sleep apnea, morbid obesity)? @ -none Was patient admitted / discharged? Hospital course, mention meds given and route, prescriptions, significant lab abnormalities, going to OR and other pertinent info. @ - 59 female to ER for evaluation patient presents today for evaluation of significant urinary tract infection. Patient is given antibiotics here in the ER he has low blood pressure given adequate fluid resuscitation and low blood sugar able to eat. Patient will be admitted for continued monitoring Admitted Undiagnosed new problem with uncertain prognosis? @ -no Drug Therapy requiring intensive monitoring for toxicity (Heparin, Nitro, Insulin, Cardizem)? @ -no Were any procedures done? @ -no Diagnosis/symptom? @ -UTI, sepsis Acute, or Chronic, or Acute on Chronic? @ -Acute Uncomplicated (without systemic symptoms) or Complicated (systemic symptoms)? @ -Complicated Side effects of treatment? @ -no Exacerbation, Progression, or Severe Exacerbation? @ -exacerbation Poses a threat to life or bodily function? How? (Chest pain, USA, DC, pneumonia, PE, COPD, DKA, ARF, appy, cholecystitis, CVA, Diverticulitis, Homicidal, Suicidal, threat to staff... and all critical care pts) @ -yes UTI infection Reevaluation #5: Differential Weakness: Hypoglycemia, shock, sepsis, hyponatremia, anemia, infection, DC, ETOH, adverse medicine reaction, overdose, stroke, this is not meant to be an all-inclusive list. - Consultations Consultation #1: Spoke with Dr. Bower who agrees to admit this patient Medical Decision Making - Medical Decision Making 59 female to ER for evaluation patient presents today for evaluation of significant urinary tract infection. Patient is given antibiotics here in the ER he has low blood pressure given adequate fluid resuscitation and low blood sugar able to eat. Patient will be admitted for continued monitoring - Lab Data Result diagrams: 04/07/24 08:41 04/07/24 08:41 Lab Results 04/06/24 04/06/24 04/06/24 Range/Units 15:53 15:53 15:53 WBC 8.1 (3.8-10.6) k/uL RBC 4.00 (3.80-5.40) m/uL Hgb 12.3 (11.4-16.0) gm/dL Hct 37.6 (34.0-46.0) % MCV 94.1 (80.0-100.0) fL MCH 30.7 (25.0-35.0) pg MCHC 32.7 (31.0-37.0) g/dL RDW 12.2 (11.5-15.5) % Plt Count 278 (150-450) k/uL MPV 7.3 Neutrophils % 51 % Lymphocytes % 42 % Monocytes % 4 % Eosinophils % 2 % Basophils % 1 % Neutrophils # 4.1 (1.3-7.7) k/uL Lymphocytes # 3.4 (1.0-4.8) k/uL Monocytes # 0.3 (0-1.0) k/uL Eosinophils # 0.1 (0-0.7) k/uL Basophils # 0.0 (0-0.2) k/uL PT 10.2 (10.0-12.5) sec INR 0.9 (<1.2) APTT 23.3 (22.0-30.0) sec Sodium 142 (137-145) mmol/L Potassium 4.2 (3.5-5.1) mmol/L Chloride 105 (98-107) mmol/L Carbon Dioxide 30 (22-30) mmol/L Anion Gap 7 mmol/L BUN 19 H (7-17) mg/dL Creatinine 0.82 (0.52-1.04) mg/dL Est GFR (CKD-EPI)AfAm >90 (>60 ml/min/1.73 sqM) Est GFR (CKD-EPI)NonAf 80 (>60 ml/min/1.73 sqM) Glucose 95 (74-99) mg/dL POC Glucose (mg/dL) (70-110) mg/dL POC Glu Cash Posting Clerk ID Plasma Lactic Acid Obed (0.7-2.0) mmol/L Calcium 9.4 (8.4-10.2) mg/dL Phosphorus 4.2 (2.5-4.5) mg/dL Magnesium 2.2 (1.6-2.3) mg/dL Total Bilirubin 0.4 (0.2-1.3) mg/dL AST 58 H (14-36) U/L ALT 74 H (4-34) U/L Alkaline Phosphatase 52 (38-126) U/L Troponin I (0.000-0.034) ng/mL Total Protein 6.0 L (6.3-8.2) g/dL Albumin 3.7 (3.5-5.0) g/dL TSH 0.228 L (0.465-4.680) mIU/L Urine Color Urine Appearance (Clear) Urine pH (5.0-8.0) Ur Specific [place] (1.001-1.035) Urine Protein (Negative) Urine Glucose (UA) (Negative) Urine Ketones (Negative) Urine Blood (Negative) Urine Nitrite (Negative) Urine Bilirubin (Negative) Urine Urobilinogen (<2.0) mg/dL Ur Leukocyte Esterase (Negative) Urine RBC (0-5) /hpf Urine WBC (0-5) /hpf Ur Squamous Epith Cells (0-4) /hpf Urine Bacteria (None) /hpf Urine Mucus (None) /hpf 04/06/24 04/06/24 04/06/24 Range/Units 15:53 15:53 16:31 WBC (3.8-10.6) k/uL RBC (3.80-5.40) m/uL Hgb (11.4-16.0) gm/dL Hct (34.0-46.0) % MCV (80.0-100.0) fL MCH (25.0-35.0) pg MCHC (31.0-37.0) g/dL RDW (11.5-15.5) % Plt Count (150-450) k/uL MPV Neutrophils % % Lymphocytes % % Monocytes % % Eosinophils % % Basophils % % Neutrophils # (1.3-7.7) k/uL Lymphocytes # (1.0-4.8) k/uL Monocytes # (0-1.0) k/uL Eosinophils # (0-0.7) k/uL Basophils # (0-0.2) k/uL PT (10.0-12.5) sec INR (<1.2) APTT (22.0-30.0) sec Sodium (137-145) mmol/L Potassium (3.5-5.1) mmol/L Chloride (98-107) mmol/L Carbon Dioxide (22-30) mmol/L Anion Gap mmol/L BUN (7-17) mg/dL Creatinine (0.52-1.04) mg/dL Est GFR (CKD-EPI)AfAm (>60 ml/min/1.73 sqM) Est GFR (CKD-EPI)NonAf (>60 ml/min/1.73 sqM) Glucose (74-99) mg/dL POC Glucose (mg/dL) 60 L (70-110) mg/dL POC Glu Cash Posting Clerk ID Grabiel Miriam Plasma Lactic Acid Obed 1.1 (0.7-2.0) mmol/L Calcium (8.4-10.2) mg/dL Phosphorus (2.5-4.5) mg/dL Magnesium (1.6-2.3) mg/dL Total Bilirubin (0.2-1.3) mg/dL AST (14-36) U/L ALT (4-34) U/L Alkaline Phosphatase (38-126) U/L Troponin I <0.012 (0.000-0.034) ng/mL Total Protein (6.3-8.2) g/dL Albumin (3.5-5.0) g/dL TSH (0.465-4.680) mIU/L Urine Color Urine Appearance (Clear) Urine pH (5.0-8.0) Ur Specific [place] (1.001-1.035) Urine Protein (Negative) Urine Glucose (UA) (Negative) Urine Ketones (Negative) Urine Blood (Negative) Urine Nitrite (Negative) Urine Bilirubin (Negative) Urine Urobilinogen (<2.0) mg/dL Ur Leukocyte Esterase (Negative) Urine RBC (0-5) /hpf Urine WBC (0-5) /hpf Ur Squamous Epith Cells (0-4) /hpf Urine Bacteria (None) /hpf Urine Mucus (None) /hpf 04/06/24 04/06/24 Range/Units 17:12 17:17 WBC (3.8-10.6) k/uL RBC (3.80-5.40) m/uL Hgb (11.4-16.0) gm/dL Hct (34.0-46.0) % MCV (80.0-100.0) fL MCH (25.0-35.0) pg MCHC (31.0-37.0) g/dL RDW (11.5-15.5) % Plt Count (150-450) k/uL MPV Neutrophils % % Lymphocytes % % Monocytes % % Eosinophils % % Basophils % % Neutrophils # (1.3-7.7) k/uL Lymphocytes # (1.0-4.8) k/uL Monocytes # (0-1.0) k/uL Eosinophils # (0-0.7) k/uL Basophils # (0-0.2) k/uL PT (10.0-12.5) sec INR (<1.2) APTT (22.0-30.0) sec Sodium (137-145) mmol/L Potassium (3.5-5.1) mmol/L Chloride (98-107) mmol/L Carbon Dioxide (22-30) mmol/L Anion Gap mmol/L BUN (7-17) mg/dL Creatinine (0.52-1.04) mg/dL Est GFR (CKD-EPI)AfAm (>60 ml/min/1.73 sqM) Est GFR (CKD-EPI)NonAf (>60 ml/min/1.73 sqM) Glucose (74-99) mg/dL POC Glucose (mg/dL) 99 (70-110) mg/dL POC Glu Cash Posting Clerk ID Sangita Alaniz Plasma Lactic Acid Obed (0.7-2.0) mmol/L Calcium (8.4-10.2) mg/dL Phosphorus (2.5-4.5) mg/dL Magnesium (1.6-2.3) mg/dL Total Bilirubin (0.2-1.3) mg/dL AST (14-36) U/L ALT (4-34) U/L Alkaline Phosphatase (38-126) U/L Troponin I (0.000-0.034) ng/mL Total Protein (6.3-8.2) g/dL Albumin (3.5-5.0) g/dL TSH (0.465-4.680) mIU/L Urine Color Light Yellow Urine Appearance Cloudy H (Clear) Urine pH 6.5 (5.0-8.0) Ur Specific [place] 1.021 (1.001-1.035) Urine Protein Negative (Negative) Urine Glucose (UA) 3+ H (Negative) Urine Ketones Negative (Negative) Urine Blood Negative (Negative) Urine Nitrite Positive H (Negative) Urine Bilirubin Negative (Negative) Urine Urobilinogen <2.0 (<2.0) mg/dL Ur Leukocyte Esterase Moderate H (Negative) Urine RBC 1 (0-5) /hpf Urine WBC 21 H (0-5) /hpf Ur Squamous Epith Cells 5 H (0-4) /hpf Urine Bacteria Occasional H (None) /hpf Urine Mucus Occasional H (None) /hpf - EKG Data -: EKG Interpreted by Me (EKG is sinus 61 IN 146 QRS 90 QTc 373) Critical Care Time Critical Care Time: Yes Total Critical Care Time: 31 Disposition Clinical Impression: UTI (urinary tract infection), Weakness, Hypoglycemia, Hypotension Disposition: HOME SELF-CARE Condition: Serious Is patient prescribed a controlled substance at d/c from ED?: No Time of Disposition: 17:00
[2024-04-06] MEDS: SODIUM CHLORIDE 0.9% 1,000 ML IV STA (15:54)
[2024-04-06 16:12] LABS: Basophils % (A) 1 %; Eosinophils # (A) 0.1 k/uL (0-0.7); Eosinophils % (A) 2 %; HCT 37.6 % (34.0-46.0); HGB 12.3 gm/dL (11.4-16.0); Lymphocytes # (A) 3.4 k/uL (1.0-4.8); Lymphocytes % (A) 42 %; MCH 30.7 pg (25.0-35.0); MCHC 32.7 g/dL (31.0-37.0); MCV 94.1 fL (80.0-100.0); Mean Platelet Volume 7.3; Monocytes # (A) 0.3 k/uL (0-1.0); Monocytes % (A) 4 %; Neutrophils # (A) 4.1 k/uL (1.3-7.7); Neutrophils % (A) 51 %; Platelet Count 278 k/uL (150-450); RDW 12.2 % (11.5-15.5); WBC 8.1 k/uL (3.8-10.6)
[2024-04-06 16:20] LABS: Anion Gap 7 mmol/L; Blood Urea Nitrogen 19 mg/dL (7-17); Carbon Dioxide 30 mmol/L (22-30); Chloride 105 mmol/L (98-107); Glucose 95 mg/dL (74-99); Potassium 4.2 mmol/L (3.5-5.1); Sodium 142 mmol/L (137-145)
[2024-04-06 16:21] LABS: ALT 74 U/L (4-34); AST 58 U/L (14-36); African American GFR (CKD) >90 (>60 ml/min/1.73 sqM); Albumin 3.7 g/dL (3.5-5.0); Alkaline Phosphatase 52 U/L (38-126); Calcium 9.4 mg/dL (8.4-10.2); Magnesium 2.2 mg/dL (1.6-2.3); Non-African American GFR(CKD) 80 (>60 ml/min/1.73 sqM); Phosphorus 4.2 mg/dL (2.5-4.5); Total Bilirubin 0.4 mg/dL (0.2-1.3)
[2024-04-06 16:27] LABS: INR 0.9 (<1.2); Partial Thromboplastin Time 23.3 sec (22.0-30.0); Prothrombin Time 10.2 sec (10.0-12.5)
[2024-04-06 16:33] LABS: Glucose,Whole Blood 60 mg/dL (70-110)
[2024-04-06] MEDS: SODIUM CHLORIDE 0.9% 500 ML 500 ML IV ONE (17:11)
[2024-04-06] MEDS: SODIUM CHLORIDE 0.9% 1,000 ML IV ONE (17:11)
[2024-04-06 17:18] LABS: Glucose,Whole Blood 99 mg/dL (70-110)
[2024-04-06 17:26] LABS: Appearance,Urine Cloudy (Clear); Bacteria,Urine Occasional /hpf; Bilirubin,Urine Negative (Negative); Blood,Urine Negative (Negative); Color,Urine Light Yellow; Glucose,Urine (UA) 3+ (Negative); Ketones,Urine Negative (Negative); Leukocyte Esterase,Urine Moderate (Negative); Mucus,Urine Occasional /hpf; Nitrite,Urine Positive (Negative); PH, Urine 6.5 (5.0-8.0); Protein,Urine Negative (Negative); RBC,Urine 1 /hpf (0-5); Specific Gravity,Urine 1.021 (1.001-1.035); Squamous Epithelial Cell,Urine 5 /hpf (0-4); Urobilinogen,Urine <2.0 mg/dL (<2.0); WBC,Urine 21 /hpf (0-5)
[2024-04-06] MEDS ORDERED: MORPHINE SULFATE 4 MG/ML SYRINGE IV PRN (20:10)
[2024-04-06] MEDS ORDERED: NALOXONE 0.4 MG/ML 1 ML VIAL IV PRN (20:10)
[2024-04-06] MEDS ORDERED: ONDANSETRON 4 MG/2 ML VIAL IVP PRN (20:10)
[2024-04-06] MEDS: SODIUM CHLORIDE 0.9% 1,000 ML IV SCH (20:40)
[2024-04-07] MEDS: PANTOPRAZOLE 40 MG/10 ML VIAL IV SCH (08:22)
[2024-04-07 09:02] LABS: Basophils % (A) 1 %; Eosinophils # (A) 0.2 k/uL (0-0.7); Eosinophils % (A) 3 %; HCT 34.3 % (34.0-46.0); HGB 11.1 gm/dL (11.4-16.0); Lymphocytes # (A) 2.4 k/uL (1.0-4.8); Lymphocytes % (A) 36 %; MCH 30.8 pg (25.0-35.0); MCHC 32.4 g/dL (31.0-37.0); MCV 94.8 fL (80.0-100.0); Mean Platelet Volume 7.5; Monocytes # (A) 0.3 k/uL (0-1.0); Monocytes % (A) 4 %; Neutrophils # (A) 3.7 k/uL (1.3-7.7); Neutrophils % (A) 55 %; Platelet Count 239 k/uL (150-450); RBC 3.61 m/uL (3.80-5.40); RDW 12.2 % (11.5-15.5); WBC 6.6 k/uL (3.8-10.6)
[2024-04-07] MEDS ORDERED: hydrOXYzine HCL 25 MG TAB PO PRN (10:10)
[2024-04-07] MEDS ORDERED: Insulin Aspart (For Pump) 100 UNIT/ML VIAL SQ-PUMP SCH (10:15)
[2024-04-07] MEDS: LEVOTHYROXINE 50 MCG TAB PO SCH (10:43)
[2024-04-07] MEDS: NON FORMULARY DRUG (Cariprazine Hcl [Vraylar] 3 MG Capsule) PO SCH (11:21)
[2024-04-07] MEDS: ASPIRIN 81 MG PO SCH (11:39)
[2024-04-07] MEDS: ASCORBIC ACID 500 MG TAB PO SCH (11:39)
--- NOTE | 2024-04-07 14:46 | P.HPIM ---
History of Present Illness H&P Date: 04/07/24 Anabella Sepulveda, is a 59-year-old female who presented to [facility] emergency room due to hypotension. Patient has known history of chronic pain, she was at her pain management physician and was noticed to have a low blood pressure of 90/50. She was also recently diagnosed with a urinary tract infection and was given a course of Bactrim by her primary care physician. She was sent to emergency room by the pain management office for further evaluation and treatment. She was evaluated in the emergency room vital examination on presentation revealed a temperature of 98.5 pulse 67 respiration 16 blood pressure 99/68 pulse ox 98% on room air Laboratory data revealed a white blood count of 8.1 hemoglobin 12.3 platelet count 278 BUN 19 creatinine 0.82 AST 58 ALT 74 Testing in the emergency room revealed EKG revealed normal sinus rhythm normal EKG Patient was admitted to medical floor for further evaluation and treatment Past Medical History Past Medical History: CVA/TIA, Diabetes Mellitus, Eye Disorder, Fibromyalgia, GERD/Reflux, Osteoarthritis (OA), Thyroid Disorder Additional Past Medical History / Comment(s): hx Pancreatitis, TIA's-slow speach and a little "processing things", insulin pump, "macular edema", Vertigo , Chronic Back Pain-bulging discs, Osteopenia, small hiatal hernia, hx kidney "is patrick" from motrin/tylenol use-resolved History of Any Multi-Drug Resistant Organisms: None Reported Past Surgical History: Appendectomy, Bariatric Surgery, Hysterectomy, Orthopedic Surgery Additional Past Surgical History / Comment(s): ESTEFANY FUNDOPLASTY. lysis of adheasions, gastric sleeve, Carpal tunnel bilateral, right oophorectomy, mult laparoscopy, pannicuilectomy, sara lens implants/cataracts Past Anesthesia/Blood Transfusion Reactions: Motion Sickness Additional Past Anesthesia/Blood Transfusion Reaction / Comment(s): vertigo Past Psychological History: Depression Smoking Status: Current every day smoker Past Alcohol Use History: Rare Past Drug Use History: Marijuana - Past Family History Mother Family Medical History: No Reported History Medications and Allergies Home Medications Medication Instructions Recorded Confirmed Type Aspirin [Adult Low Dose Aspirin EC] 81 mg PO DAILY 09/30/18 04/06/24 History Cholecalciferol [Vitamin D3 (25 25 mcg PO DAILY 05/24/20 04/06/24 History Mcg = 1000 Iu)] Simvastatin [Zocor] 20 mg PO HS 05/24/20 04/06/24 History Cider Vinegar [Apple Cider Vinegar] 300 mg PO DAILY 03/05/21 04/06/24 History Ferrous Sulfate [Iron (65 MG 325 mg PO DAILY 03/05/21 04/06/24 History Elemental)] oxyCODONE HCL [oxyCODONE HCL (IR)] 10 mg PO TID 03/05/21 04/06/24 History Insulin Aspart (For Pump) [NovoLOG 0.01 unit SQ-PUMP CONTINUOUS 06/12/21 04/06/24 History (For Pump)] Ascorbic Acid [Vitamin C] 1,000 mg PO DAILY 04/06/24 04/06/24 History Cariprazine HCl [Vraylar] 3 mg PO DAILY 04/06/24 04/06/24 History Elderberry Fruit [Elderberry] 350 mg PO DAILY 04/06/24 04/06/24 History Flax Seed Oil 1400mg 1 cap PO DAILY 04/06/24 04/06/24 History Levothyroxine Sodium [Synthroid] 50 mcg PO DAILY 04/06/24 04/06/24 History Magnesium Oxide [Mag-Ox] 400 mg PO DAILY 04/06/24 04/06/24 History Melatonin 5 mg PO HS 04/06/24 04/06/24 History [place]-3/Dha/Epa/Fish Oil [Fish Oil 1 cap PO DAILY 04/06/24 04/06/24 History 1,000 mg Softgel] Omeprazole [PriLOSEC] 20 mg PO DAILY 04/06/24 04/06/24 History Sulfamethox-Tmp 800-160Mg [Bactrim 1 tab PO DIRECTED 04/06/24 04/06/24 History DS 800-160 mg] Vitamin E (Dl,Tocopheryl Acet) 400 unit PO DAILY 04/06/24 04/06/24 History [Vitamin E (400 Iu = 180 mg)] Zinc Gluconate [Zinc] 50 mg PO DAILY 04/06/24 04/06/24 History hydrOXYzine HCL [Atarax] 25 mg PO QID PRN 04/06/24 04/06/24 History Allergies Allergy/AdvReac Type Severity Reaction Status Date / Time latex Allergy Rash/Hives Verified 12/18/24 16:32 vitamins Allergy Rash/Hives Uncoded 04/06/24 16:32 Physical Exam Vitals: Vital Signs Temp Pulse Resp BP Pulse Ox 04/07/24 06:03 65 16 112/61 98 04/07/24 02:27 76 16 111/63 99 04/07/24 00:09 70 16 92/50 96 04/06/24 20:41 82 20 104/54 97 04/06/24 18:25 74 16 99/57 100 04/06/24 17:01 80 18 96/53 98 04/06/24 15:39 61 18 94/66 98 04/06/24 15:05 98.5 F 67 16 99/68 98 Intake and Output 04/06/24 04/06/24 04/07/24 14:59 22:59 06:59 Other: Weight 58.513 kg In general patient is alert and oriented x 3 in no distress HEENT head normocephalic and atraumatic Neck is supple no JVD no goiter no lymphadenopathy no carotid bruit Chest examination is clear to auscultation no crackles no wheezing Cardiac exam reveals regular heart sounds S1 and S2 no gallops no murmurs Abdomen is soft nontender no organomegaly with normal bowel sounds Extremity exam reveals no edema no cyanosis or clubbing Neurological examination reveals no gross focal deficits Results CBC & Chem 7: 04/07/24 08:41 04/06/24 15:53 Labs: Abnormal Lab Results - Last 24 Hours (Table) 04/06/24 04/06/24 04/06/24 Range/Units 15:53 16:31 17:12 BUN 19 H (7-17) mg/dL POC Glucose (mg/dL) 60 L (70-110) mg/dL AST 58 H (14-36) U/L ALT 74 H (4-34) U/L Total Protein 6.0 L (6.3-8.2) g/dL TSH 0.228 L (0.465-4.680) mIU/L Urine Appearance Cloudy H (Clear) Urine Glucose (UA) 3+ H (Negative) Urine Nitrite Positive H (Negative) Ur Leukocyte Esterase Moderate H (Negative) Urine WBC 21 H (0-5) /hpf Ur Squamous Epith Cells 5 H (0-4) /hpf Urine Bacteria Occasional H (None) /hpf Urine Mucus Occasional H (None) /hpf Assessment and Plan Plan: Hypotension, patient was given IV fluid in the emergency room blood pressure improved Urinary tract infection patient was started on IV ceftriaxone Underlying history of insulin-dependent diabetes mellitus on insulin pump Underlying history of chronic pain syndrome followed by pain management clinic Underlying history of hypothyroidism Underlying history of gastroesophageal reflux disease Underlying history of hyperlipidemia At this time patient was seen and examined Medications reviewed and reordered, will discontinue hydrochlorothiazide Continue to monitor blood pressure closely Continue with IV ceftriaxone
--- NOTE | 2024-04-07 14:48 | P.DS ---
Providers Date of admission: 04/06/24 20:12 Expected date of discharge: 04/07/24 Attending physician: Katherine Bower Primary care physician: Siria Brar [facility] Course: Diagnosis on discharge: Hypotension, patient was given IV fluid in the emergency room blood pressure improved Urinary tract infection patient was started on IV ceftriaxone Underlying history of insulin-dependent diabetes mellitus on insulin pump Underlying history of chronic pain syndrome followed by pain management clinic Underlying history of hypothyroidism Underlying history of gastroesophageal reflux disease Underlying history of hyperlipidemia Hospital course: Anabella Sepulveda, is a 59-year-old female who presented to [facility] emergency room due to hypotension. Patient has known history of chronic pain, she was at her pain management physician and was noticed to have a low blood pressure of 90/50. She was also recently diagnosed with a urinary tract infection and was given a course of Bactrim by her primary care physician. She was sent to emergency room by the pain management office for further evaluation and treatment. She was evaluated in the emergency room vital examination on presentation revealed a temperature of 98.5 pulse 67 respiration 16 blood pressure 99/68 pulse ox 98% on room air Laboratory data revealed a white blood count of 8.1 hemoglobin 12.3 platelet count 278 BUN 19 creatinine 0.82 AST 58 ALT 74 Testing in the emergency room revealed EKG revealed normal sinus rhythm normal EKG Patient was admitted to medical floor for further evaluation and treatment On 04/07/2024 patient was seen and examined on the medical floor she is alert and oriented x 3 in no apparent distress, blood pressure is stable around 110/66, patient has urinary tract infection without evidence of sepsis, no fever no elevated white blood count, she received IV ceftriaxone in the emergency room, patient is stable and asymptomatic, she can be discharged to home safely today, she will resume course of oral Bactrim that was prescribed by her primary care physician, follow-up with PCP within 1 week, Patient Condition at Discharge: Serious Plan - Discharge Summary New Discharge Prescriptions: Continue Aspirin [Adult Low Dose Aspirin EC] 81 mg PO DAILY Simvastatin [Zocor] 20 mg PO HS Cholecalciferol [Vitamin D3 (25 Mcg = 1000 Iu)] 25 mcg PO DAILY Ferrous Sulfate [Iron (65 MG Elemental)] 325 mg PO DAILY oxyCODONE HCL [oxyCODONE HCL (IR)] 10 mg PO TID Cider Vinegar [Apple Cider Vinegar] 300 mg PO DAILY Omeprazole [PriLOSEC] 20 mg PO DAILY Melatonin 5 mg PO HS Vitamin E (Dl,Tocopheryl Acet) [Vitamin E (400 Iu = 180 mg)] 400 unit PO DAILY Elderberry Fruit [Elderberry] 350 mg PO DAILY Ascorbic Acid [Vitamin C] 1,000 mg PO DAILY Insulin Aspart (For Pump) [NovoLOG (For Pump)] 0.01 unit SQ-PUMP CONTINUOUS Levothyroxine Sodium [Synthroid] 50 mcg PO DAILY Cariprazine HCl [Vraylar] 3 mg PO DAILY hydrOXYzine HCL [Atarax] 25 mg PO QID PRN PRN Reason: Anxiety [place]-3/Dha/Epa/Fish Oil [Fish Oil 1,000 mg Softgel] 1 cap PO DAILY Magnesium Oxide [Mag-Ox] 400 mg PO DAILY Flax Seed Oil 1400mg 1 cap PO DAILY Zinc Gluconate [Zinc] 50 mg PO DAILY Sulfamethox-Tmp 800-160Mg [Bactrim DS 800-160 mg] 1 tab PO DIRECTED Discontinued hydroCHLOROthiazide 12.5 mg PO DAILY Discharge Medication List Aspirin [Adult Low Dose Aspirin EC] 81 mg PO DAILY 09/30/18 [History] Cholecalciferol [Vitamin D3 (25 Mcg = 1000 Iu)] 25 mcg PO DAILY 05/24/20 [History] Simvastatin [Zocor] 20 mg PO HS 05/24/20 [History] Cider Vinegar [Apple Cider Vinegar] 300 mg PO DAILY 03/05/21 [History] Ferrous Sulfate [Iron (65 MG Elemental)] 325 mg PO DAILY 03/05/21 [History] oxyCODONE HCL [oxyCODONE HCL (IR)] 10 mg PO TID 03/05/21 [History] Insulin Aspart (For Pump) [NovoLOG (For Pump)] 0.01 unit SQ-PUMP CONTINUOUS 06/12/21 [History] Ascorbic Acid [Vitamin C] 1,000 mg PO DAILY 04/06/24 [History] Cariprazine HCl [Vraylar] 3 mg PO DAILY 04/06/24 [History] Elderberry Fruit [Elderberry] 350 mg PO DAILY 04/06/24 [History] Flax Seed Oil 1400mg 1 cap PO DAILY 04/06/24 [History] Levothyroxine Sodium [Synthroid] 50 mcg PO DAILY 04/06/24 [History] Magnesium Oxide [Mag-Ox] 400 mg PO DAILY 04/06/24 [History] Melatonin 5 mg PO HS 04/06/24 [History] [place]-3/Dha/Epa/Fish Oil [Fish Oil 1,000 mg Softgel] 1 cap PO DAILY 04/06/24 [History] Omeprazole [PriLOSEC] 20 mg PO DAILY 04/06/24 [History] Sulfamethox-Tmp 800-160Mg [Bactrim DS 800-160 mg] 1 tab PO DIRECTED 04/06/24 [History] Vitamin E (Dl,Tocopheryl Acet) [Vitamin E (400 Iu = 180 mg)] 400 unit PO DAILY 04/06/24 [History] Zinc Gluconate [Zinc] 50 mg PO DAILY 04/06/24 [History] hydrOXYzine HCL [Atarax] 25 mg PO QID PRN 04/06/24 [History] Follow up Appointment(s)/Referral(s): Siria Brar MD [Primary Care Provider] - 1-2 days
[2024-04-07 15:19] LABS: Magnesium 1.8 mg/dL (1.5-2.4); Phosphorus 3.3 mg/dL (2.4-5.1)
[2024-04-07 15:26] LABS: ALT 61 U/L (8-44); AST 48 U/L (13-35); Albumin 3.1 g/dL (3.8-4.9); Albumin/Globulin Ratio 1.72 Ratio (1.60-3.17); Alkaline Phosphatase 48 U/L (41-126); BUN/Creat Ratio 12.86 Ratio (12.00-20.00); Calcium 8.6 mg/dL (8.7-10.3); Carbon Dioxide 24.5 mmol/L (21.6-31.8); Chloride 113 mmol/L (96-109); Globulin 1.8 g/dL (1.6-3.3); Glucose 111 mg/dL (70-110); Potassium 4.2 mmol/L (3.5-5.5); Sodium 146 mmol/L (135-145); Total Bilirubin <0.2 mg/dL (0.3-1.2); Total Protein 4.9 g/dL (6.2-8.2)
[2024-04-07 15:29] VITALS: BP 90/55; PULSE 72; RESP 16; TEMP 98.7
[2024-04-07] MEDS ORDERED: ATORVASTATIN 10 MG TAB PO SCH (21:00)
[2024-04-07] MEDS ORDERED: MELATONIN 5 MG TABLET PO SCH (21:00)
[2024-04-08] MEDS ORDERED: PANTOPRAZOLE 40 MG TABLET PO SCH (07:30)
[2024-04-08] MEDS ORDERED: VITAMIN E (DL,TOCOPHERYL ACET) 400 UNIT (180 MG) CAP PO SCH (09:00)
[2024-04-08] MEDS ORDERED: NON FORMULARY DRUG (Omeprazole 20 MG Capsule.Dr) PO SCH (09:00)
[2024-04-08] MEDS ORDERED: NON FORMULARY DRUG (Zinc Gluconate 50 MG Tab) PO SCH (09:00)
[2024-04-08] MEDS ORDERED: NON FORMULARY DRUG (Omega-3/Dha/Epa/Fish Oil [Fish Oil 1,000 Mg Softgel] 1 EACH Capsule) PO SCH (09:00)
[2024-04-08] MEDS ORDERED: CHOLECALCIFEROL 25 MCG (1000 IU) TABLET PO SCH (09:00)
[2024-04-08] MEDS ORDERED: MAGNESIUM OXIDE 400 MG TAB PO SCH (09:00)
== END 2024-04-07 15:48 | disposition home or self-care (01) ==
LOC: EC 14:54 → INTOOBSV 20:12 → 4SSUR 20:12 → 5NMEDONC 04-07 07:23
PROVIDERS: ADMIT Internal Medicine; ATTEND Internal Medicine
DX: I95.9 Hypotension, unspecified (principal); N39.0 Urinary tract infection, site not specified; E11.9 Type 2 diabetes mellitus without complications; G89.4 Chronic pain syndrome; E03.9 Hypothyroidism, unspecified; E78.5 Hyperlipidemia, unspecified; K21.9 Gastro-esophageal reflux disease without esophagitis; F32.A Depression, unspecified; F17.200 Nicotine dependence, unspecified, uncomplicated; Z86.73 Personal history of transient ischemic attack (TIA), and cerebral infarction without residual deficits; Z96.41 Presence of insulin pump (external) (internal); Z79.82 Long term (current) use of aspirin; Z79.890 Hormone replacement therapy; Z79.899 Other long term (current) drug therapy; Z91.040 Latex allergy status
CPT/HCPCS: 96361; 96365; 96366 ×2; 96375; 99291; 36415; 93005; 80053 ×2; 83605; 83735 ×2; 84100 ×2; 84443; 84484; 85025 ×2; 85610; 85730; 81001; 87040; G0378 ×2; J0696 ×2; J2470

== ENCOUNTER → 2024-11-03 | Outpatient (CLI) | payer MEDICARE ==
--- NOTE | 2024-11-03 16:07 | MM ---
Reason for Exam: Screening (asymptomatic). Last mammogram was performed 1 year(s) and 9 month(s) ago. Patient History: Menarche at age 18. First Full-Term at age 27. Right ovary removed at age 21. Hysterectomy at age 40. Postmenopausal. Patient has history of breast feeding. 06/14/2021, Benign Core Biopsy on the left side. Maternal grandmother had breast cancer. Risk Values: Shira 5 year model risk: 1.5%. NCI Lifetime model risk: 9.3%. Prior Study Comparison: 06/14/2021 Left Diagnostic Mammogram, [facility]. 12/20/2021 Left MG 3D diag mammo w/cad LT, [facility]. 01/26/2023 Bilateral MG 3D diag mammo w/cad JENY, [facility]. Tissue Density: The breasts are heterogeneously dense, which may obscure small masses. Findings: Analyzed By CAD. Asymmetric tissue in the right breast is stable. Previous biopsy changes are stable. Benign-appearing calcified lesions. Asymmetric density and nodular density in the upper outer quadrant left breast. Spot compression views recommended. Questionable irregularity in the central margin of the right breast. Overall Assessment: Incomplete: need additional imaging evaluation, BI-RAD 0 Management: Special View Mammogram of both breasts. . Patient should continue monthly self-breast exams. A clinical breast exam by your physician is recommended on an annual basis. This exam should not preclude additional follow-up of suspicious palpable abnormalities. Note on Shira scores and lifetime risk: 1. A Shira score greater than 3% is considered moderate risk. If this is the case, consider specialist referral to assess eligibility for a risk reducing agent. 2. If overall lifetime risk for the development of breast cancer is 20% or higher, the patient may qualify for future screening with alternating mammogram and breast MRI. [facility], , 11/03/2024 4:03 PM. Electronically signed and approved by: El Goss M.D. Radiologis
== END | disposition home or self-care (01) ==
LOC: RADMAMWWP 14:34
PROVIDERS: ATTEND Family Medicine
DX: Z12.31 Encounter for screening mammogram for malignant neoplasm of breast (principal); R92.333 Mammographic heterogeneous density, bilateral breasts; Z78.0 Asymptomatic menopausal state; Z80.3 Family history of malignant neoplasm of breast
CPT/HCPCS: 77063; 77067

== ENCOUNTER → 2024-11-09 | Outpatient (CLI) | payer MEDICARE ==
--- NOTE | 2024-11-09 13:12 | MM ---
Reason for Exam: Additional evaluation requested from abnormal screening. Last screening mammogram was performed less than 1 month ago. Patient History: Menarche at age 18. First Full-Term at age 27. Right ovary removed at age 21. Hysterectomy at age 40. Postmenopausal. Patient has history of breast feeding. 06/14/2021, Benign Core Biopsy on the left side. Maternal grandmother had breast cancer. Risk Values: Shira 5 year model risk: 1.5%. NCI Lifetime model risk: 9.3%. Prior Study Comparison: 01/26/2023 Bilateral MG 3D diag mammo w/cad JENY, [facility]. 11/03/2024 Bilateral MG 3D screening mammo w/cad, [facility]. Tissue Density: The breasts are heterogeneously dense, which may obscure small masses. Findings: Analyzed By CAD. Nodular asymmetries left breast are not significantly changed dating back to at least 12/20/2021. Left breast biopsy clip and calcifications are benign. "Breast architectural distortion is felt to be similar to 2022 exam given differences in technique. No new suspicious masses, calcifications or distortions. Overall Assessment: Benign, BI-RAD 2 Management: Screening Mammogram of both breasts in 1 year. Results were given to the patient verbally at the time of exam. Patient should continue monthly self-breast exams. A clinical breast exam by your physician is recommended on an annual basis. This exam should not preclude additional follow-up of suspicious palpable abnormalities. Note on Shira scores and lifetime risk: 1. A Shira score greater than 3% is considered moderate risk. If this is the case, consider specialist referral to assess eligibility for a risk reducing agent. 2. If overall lifetime risk for the development of breast cancer is 20% or higher, the patient may qualify for future screening with alternating mammogram and breast MRI. [facility], , 11/09/2024 1:06 PM. Electronically signed and approved by: Edmundo Mcfarlane DO
== END | disposition home or self-care (01) ==
LOC: RADMAMWWP 12:32
PROVIDERS: ATTEND Family Medicine
DX: R92.8 Other abnormal and inconclusive findings on diagnostic imaging of breast (principal); R92.333 Mammographic heterogeneous density, bilateral breasts; Z78.0 Asymptomatic menopausal state; Z80.3 Family history of malignant neoplasm of breast
CPT/HCPCS: 77066; G0279; 77062